=== PATIENT | female | born 1950 | race Caucasian/White ===

== ENCOUNTER 2020-10-05 | Outpatient (REF) | payer MEDICARE, SELFPAY ==
[2020-10-12 08:25] LABS: FIT1 NEGATIVE (NEGATIVE); FIT2 NEGATIVE (NEGATIVE)
[2020-10-12 08:26] LABS: FIT Int Ctl YES
== END 2020-10-05 00:01 | disposition home or self-care (01) ==
LOC: HO.LNP
PROVIDERS: Visit Provider Internal Medicine
DX: I10 Essential (primary) hypertension (principal); D73.1 Hypersplenism; D72.819 Decreased white blood cell count, unspecified; D69.6 Thrombocytopenia, unspecified; E89.40 Asymptomatic postprocedural ovarian failure
CPT/HCPCS: 82274

== ENCOUNTER 2020-10-05 12:43 | Outpatient (REF) | payer MEDICARE, SELFPAY ==
[2020-10-05 14:10] LABS: Basophils Percent Auto 0.4 % (0-2); Eosinophils Absolute Auto 0.1 X10*3/uL (0.0-0.4); Eosinophils Percent Auto 4.2 % (0-4); Hemoglobin 12.3 g/dl (12.0-16.0); MANUAL DIFF FLAG SCAN; Mean Corpuscular Volume 100.3 fL (80-98); SCAN SMEAR FLAG 1
[2020-10-05 14:12] LABS: Hematocrit 36.9 % (37-47); Lymphocytes Absolute Auto 0.8 X10*3/uL (1.2-4.9); Lymphocytes Percent Auto 31.4 % (20-40); Mean Corpuscular HGB Conc 33.3 g/dl (31.0-35.0); Mean Corpuscular Hemoglobin 33.4 pg (27.0-33.0); Mean Platelet Volume 14.4 fL (9.4-12.3); Monocytes Absolute Auto 0.2 X10*3/uL (0.1-1.2); Monocytes Percent Auto 8.4 % (2-11); Neutrophils Absolute Auto 1.3 X10*3/uL (2.0-8.3); Neutrophils Percent Auto 55.6 % (45-73); Red Blood Count 3.68 X10*6/uL (4.20-5.50); Red Cell Distribution Width 13.5 % (11.0-16.0)
[2020-10-05 14:19] LABS: PLT ABN DIST 1; Platelet Count 30 X10*3/uL (160-400); White Blood Count 2.4 X10*3/uL (4.8-10.8)
[2020-10-05 14:35] LABS: Alanine Aminotransferase 35 U/L (0-31); Albumin Level 3.6 g/dL (3.5-5.0); Alkaline Phosphatase 122 U/L (39-117); Anion Gap 11 (12-20); Aspartate Amino Transferase 44 U/L (5-31); Bilirubin Total 1.1 mg/dL (0.0-1.0); Blood Urea Nitrogen 18 mg/dL (9-16); Calcium 8.3 mg/dL (8.4-10.2); Carbon Dioxide 23 mmol/L (22-29); Chloride 111 mmol/L (96-108); Cholesterol 206 mg/dL; Estimated Glomerular Filt Rate > 60; Glucose Fasting 94 mg/dL (60-99); HDL Cholesterol 52 mg/dL; LDL Cholesterol Calculated 133 mg/dl; Potassium 4.3 mmol/l (3.3-5.1); Sodium 141 mmol/L (135-145); Total Protein 6.4 g/dL (6.5-8.0); Triglycerides 108 mg/dL
[2020-10-05 14:43] LABS: Vitamin D 25-OH Total 20.5 ng/mL (>30)
[2020-10-05 14:52] LABS: SLIDE REVIEW VERIFIED
== END 2020-10-05 12:44 | disposition home or self-care (01) ==
LOC: HO.HMGCLDS 12:43
PROVIDERS: PCP Internal Medicine; Visit Provider Internal Medicine
DX: I10 Essential (primary) hypertension (principal); D73.1 Hypersplenism; D72.819 Decreased white blood cell count, unspecified; D69.6 Thrombocytopenia, unspecified; E89.40 Asymptomatic postprocedural ovarian failure
CPT/HCPCS: 36415; 80053; 80061; 82306; 85025; 85060

== ENCOUNTER → 2020-11-04 15:25 | Outpatient (BNV) | payer MEDICARE, SELFPAY | PROVIDERS: PCP Internal Medicine; Visit Provider Internal Medicine Medical Oncology | DX: D69.6 Thrombocytopenia, unspecified (principal) | CPT/HCPCS: 99212; 99213; 99214 ==

== ENCOUNTER 2020-11-11 13:29 | Outpatient (REF) | payer MEDICARE, SELFPAY ==
--- NOTE | ~2020-11-11 | MM_ITS ---
EXAMINATION: MM SCREENING DIGITAL BREAST TOMOSYNTHESIS, BILATERAL CLINICAL INFORMATION: Screening. Asymptomatic. The lifetime risk of breast cancer based on the Tyrer-Cuzick Model is 3%. COMPARISON: Mammography: 05/29/2019, 03/31/2018, 03/28/2017 TECHNIQUE: Digital breast tomosynthesis is performed in both the craniocaudal and mediolateral oblique views along with computer-aided detection (CAD). Synthesized 2D images are generated from the tomosynthesis. Additional left MLO view is provided. FINDINGS: There are scattered areas of fibroglandular density (ACR BI-RADS breast composition Category b). There are no significant masses, abnormal calcifications, or other abnormalities. There is a biopsy clip marker again seen central 9:00 mid right breast. Left axillary node is stable. Skin contours are smooth. MM/MM tomosynthesis screening BI IMPRESSION: No mammographic evidence of malignancy. ASSESSMENT: BI-RADS 2: Benign RECOMMENDATION: Routine annual mammography screening. This patient's information was entered into a reminder system with a target due date for their next mammogram.
--- NOTE | ~2020-11-11 | MM_ITS ---
EXAMINATION: BONE DENSITOMETRY CLINICAL INDICATION: Asymptomatic menopausal state. COMPARISON: None (current study represents initial baseline exam). TECHNIQUE: Using a VTM DXA System (software version: 13.1) manufactured by [employer], dual-energy x-ray absorptiometry was performed of the lumbar spine and left hip. The images are of good technical quality. Summary results are attached. FINDINGS: AP SPINE L1-L4: BMD 0.722 g/cm2, Z-score -2.6, T-score -3.8, osteoporosis. LEFT FEMUR, NECK: BMD 0.684 g/cm2, Z-score -1.2, T-score -2.5, osteoporosis. LEFT FEMUR, TOTAL: BMD 0.810 g/cm2, Z-score -0.5, T-score -1.6, osteopenia. IDENTIFIED RISK FACTORS: History of adult fracture. Secondary osteoporosis (early menopause). Hysterectomy. Bilateral oophorectomy. HISTORY OF FRACTURE: Wrists MEDICATIONS: Calcium supplement and/or multivitamin. Vitamin D. MM/XR DEXA axial skeleton IMPRESSION: 1. DIAGNOSIS: Osteoporosis based on the lowest T-score value of -3.8 in the lumbar spine applying World Health Organization criteria. 2. 10-YEAR FRACTURE RISK PREDICTION, FRAX: Major osteoporotic fracture (clinical spine, forearm, hip or shoulder) 21.4%. Hip fracture 5.1%. 3. Treatment Recommendations: NOF guidelines recommend consideration for treatment in postmenopausal women and men age 50 and older presenting with the following: -A hip or vertebral (clinical or morphometric) fracture. -T-score less than or equal to -2.5 at the femoral neck or spine after appropriate evaluation to exclude secondary causes. -Low bone mass at the hip or spine and a 10-year fracture probability by FRAX of greater than or equal to 3% for hip fracture or greater than or equal to 20% for major osteoporotic fracture based on the [place] adapted WHO algorithm. 4. Other Recommendations: All treatment decisions require clinical judgment and consideration of individual patient factors, including patient preferences, comorbidities, previous drug use, risk factors not captured in the FRAX model (e.g. frailty, falls, vitamin D deficiency, increased bone turnover, interval significant decline in bone density) and possible under or overestimation of fracture risk by FRAX. Additional medical evaluation for secondary cause of low bone mineral density may be appropriate. FUTURE SCAN RECOMMENDATION: People with diagnosed cases of osteoporosis or at high risk for fracture should have regular bone mineral density tests. For patients eligible for Medicare, routine testing is allowed once every 2 years. The testing frequency can be increased to one year for patients who have rapidly progressing disease, those who are receiving or discontinuing medical therapy to restore bone mass, or have additional risk factors.
== END 2020-11-11 13:30 | disposition home or self-care (01) ==
LOC: HO.MAMMO 13:29
PROVIDERS: PCP Internal Medicine; Visit Provider Internal Medicine
DX: Z13.820 Encounter for screening for osteoporosis (principal); Z12.31 Encounter for screening mammogram for malignant neoplasm of breast; Z78.0 Asymptomatic menopausal state; Z90.710 Acquired absence of both cervix and uterus; Z90.722 Acquired absence of ovaries, bilateral; Z79.899 Other long term (current) drug therapy
CPT/HCPCS: 77063; 77067; 77080

== ENCOUNTER → 2021-01-25 08:29 | Outpatient (BNVA) | payer MEDICARE, SELFPAY | PROVIDERS: PCP Internal Medicine; Visit Provider Internal Medicine | DX: Z13.89 Encounter for screening for other disorder (principal) | CPT/HCPCS: Q3014 ==

== ENCOUNTER 2021-02-22 08:23 | Outpatient (REF) | payer MEDICARE, SELFPAY ==
[2021-02-22 11:51] LABS: Alanine Aminotransferase 35 U/L (0-31); Albumin Level 3.5 g/dL (3.5-5.0); Alkaline Phosphatase 119 U/L (39-117); Anion Gap 13 (12-20); Aspartate Amino Transferase 49 U/L (5-31); Bilirubin Total 1.6 mg/dL (0.0-1.0); Blood Urea Nitrogen 18 mg/dL (9-16); Calcium 8.8 mg/dL (8.4-10.2); Carbon Dioxide 21 mmol/L (22-29); Chloride 110 mmol/L (96-108); Estimated Glomerular Filt Rate > 60; Glucose Random 102 mg/dL (60-115); Phosphorus 3.3 mg/dL (2.7-4.5); Sodium 140 mmol/L (135-145); Total Protein 6.4 g/dL (6.5-8.0)
[2021-02-22 12:15] LABS: Free T4 (Free Thyroxine) 0.95 ng/dL (0.71-1.85); Thyroid Stimulating Hormone 1.63 uIU/mL (0.32-4.0); Vitamin D 25-OH Total 53.6 ng/mL (>30)
[2021-02-23 14:31] LABS: Calcium, Ionized 5.1 mg/dL (4.8-5.6)
[2021-02-24 10:22] LABS: PTHI 33 pg/mL (14-64)
[2021-02-24 21:46] LABS: Prot Elec - Albumin 3.5 g/dL (3.8-4.8); Prot Elec - Alpha1 0.2 g/dL (0.2-0.3); Prot Elec - Alpha2 0.5 g/dL (0.5-0.9); Prot Elec - Beta 1 0.4 g/dL (0.4-0.6); Prot Elec - Beta 2 0.3 g/dL (0.2-0.5); Prot Elec - Gamma 1.2 g/dL (0.8-1.7); Prot Elec - Total Protein 6.1 g/dL (6.1-8.1)
[2021-02-26 13:52] LABS: Alkaline Phosphatase Bone 20.4 mcg/L (5.6-29.0)
[2021-03-01 19:41] LABS: N-Telopeptide 31 (see note); NTXCreaRU 66 mg/dL (20-275)
== END 2021-02-22 08:24 | disposition home or self-care (01) ==
LOC: HO.HMGCLDS 08:23
PROVIDERS: PCP Internal Medicine; Visit Provider Internal Medicine
DX: M81.0 Age-related osteoporosis without current pathological fracture (principal); E55.9 Vitamin D deficiency, unspecified
CPT/HCPCS: 36415; 80053; 82306; 82330; 82523; 83970; 84075; 84100; 84155; 84165; 84439; 84443

== ENCOUNTER 2021-02-28 | Outpatient (REF) | payer MEDICARE, SELFPAY ==
[2021-02-28 12:13] LABS: Total Volume 24 Hour Urine 1750 mL
[2021-02-28 12:34] LABS: Creatinine, 24Hr Urine 0.9 G/Day (1.0-2.0); Creatinine, mg/dL 53.22
[2021-03-02 18:17] LABS: Calcium, 24 Hr Urine 119 mg/24 h; Calcium/Creatinine Ratio 121 mg/g creat (30-275); Creatinine 24Hr Urine 0.98 g/24 h (0.50-2.15)
== END 2021-02-28 00:01 | disposition home or self-care (01) ==
LOC: HO.HMGCLNP
PROVIDERS: Visit Provider Internal Medicine
DX: M81.0 Age-related osteoporosis without current pathological fracture (principal)
CPT/HCPCS: 82340; 82570

== ENCOUNTER → 2021-04-13 08:24 | Outpatient (BNVA) | payer MEDICARE, SELFPAY | PROVIDERS: PCP Internal Medicine; Visit Provider Internal Medicine | DX: M81.0 Age-related osteoporosis without current pathological fracture (principal); E55.9 Vitamin D deficiency, unspecified | CPT/HCPCS: Q3014 ==

== ENCOUNTER 2021-04-24 13:48 | Outpatient (REF) | payer MEDICARE, SELFPAY ==
[2021-04-24 15:26] LABS: Basophils Percent Auto 0.4 % (0-2); MANUAL DIFF FLAG SCAN; PLT CLUMP 1; SCAN SMEAR FLAG 1
[2021-04-24 15:28] LABS: Eosinophils Absolute Auto 0.1 X10*3/uL (0.0-0.4); Eosinophils Percent Auto 5.1 % (0-4); Hematocrit 36.5 % (37-47); Hemoglobin 12.4 g/dl (12.0-16.0); Lymphocytes Absolute Auto 0.7 X10*3/uL (1.2-4.9); Lymphocytes Percent Auto 28.8 % (20-40); Mean Corpuscular Hemoglobin 33.3 pg (27.0-33.0); Mean Corpuscular Volume 98.1 fL (80-98); Monocytes Absolute Auto 0.3 X10*3/uL (0.1-1.2); Monocytes Percent Auto 10.6 % (2-11); Neutrophils Absolute Auto 1.3 X10*3/uL (2.0-8.3); Neutrophils Percent Auto 55.1 % (45-73); Red Blood Count 3.72 X10*6/uL (4.20-5.50); Red Cell Distribution Width 14.2 % (11.0-16.0)
[2021-04-24 15:33] LABS: INTERNATIONAL NORM RATIO 1.2 (0.9-1.1); Platelet Count 25 X10*3/uL (160-400); Prothrombin Time 14.1 SEC (9.9-13.0); White Blood Count 2.4 X10*3/uL (4.8-10.8)
[2021-04-24 15:34] LABS: PLT ABN DIST 1
[2021-04-24 15:49] LABS: Alanine Aminotransferase 45 U/L (0-31); Albumin Level 3.7 g/dL (3.5-5.0); Alkaline Phosphatase 107 U/L (39-117); Anion Gap 13 (12-20); Aspartate Amino Transferase 61 U/L (5-31); Blood Urea Nitrogen 24 mg/dL (9-16); Calcium 9.8 mg/dL (8.4-10.2); Carbon Dioxide 23 mmol/L (22-29); Chloride 110 mmol/L (96-108); Estimated Glomerular Filt Rate > 60; Glucose Random 100 mg/dL (60-115); Iron 166 mcg/dL (30-160); Percent Iron Saturation 61 % (15-50); Potassium 4.2 mmol/L (3.3-5.1); Sodium 142 mmol/L (135-145); Total Iron Binding Capacity 272 mcg/dL (228-428); Total Protein 6.9 g/dL (6.5-8.0); Unsaturated Iron Binding 106 ug/dL
[2021-04-24 15:54] LABS: SLIDE REVIEW VERIFIED
[2021-04-24 16:10] LABS: Ferritin 404 ng/mL (10-250); Vitamin D 25-OH Total 36.8 ng/mL (>30)
[2021-04-24 16:22] LABS: Folate 19.3 ng/mL (> or = 4.0); Vitamin B12 1274 pg/mL (200-900)
[2021-04-24 16:28] LABS: Erythrocyte Sedimentation Rate 14 MM/HR (0-20)
[2021-04-25 05:01] LABS: HBc Num1 0.16 S/CO (0.00-0.79); HBsAGNum1 0.18 S/CO (0.00-0.99); Hepatitis B Core Antibody Nonreactive (Nonreactive); Hepatitis B Surface Antigen Negative (Negative); ~HepC Num1 0.21 S/CO (0.00-0.79); ~Hepatitis C Antibody Nonreactive (Nonreactive)
[2021-04-25 05:03] LABS: HBS Num1 0.08 mIU/mL (0-7.99); HIV AB/AG Nonreactive (Nonreactive); HIV Num 1 0.12 S/CO (0.00-0.99); ~Hepatitis B Surface Antibody NONREACTIVE (Nonreactive)
[2021-04-25 13:35] LABS: IgA 347 mg/dL (70-320); IgG 1355 mg/dL (600-1540); IgM 138 mg/dL (50-300)
[2021-04-25 17:31] LABS: Immunoglobulin G Subclass 1 689 mg/dL (382-929); Immunoglobulin G Subclass 2 383 mg/dL (241-700); Immunoglobulin G Subclass 3 73 mg/dL (22-178); Immunoglobulin G Total 1263 mg/dL (600-1540)
[2021-04-26 11:52] LABS: Alpha 1 Anti-trypsin 179 mg/dL (83-199); Ceruloplasmin 29 mg/dL (18-53)
[2021-04-26 12:18] LABS: Hepatitis A Antibody IgM 0.24 Index (0-0.79); ~Hepatitis A Antibody IgM Nonreactive (Nonreactive)
[2021-04-26 13:11] LABS: Mitochondrial Antibodies NEGATIVE (NEGATIVE)
[2021-04-27 12:41] LABS: Anti Nuclear Antibody Screen POSITIVE (NEGATIVE)
[2021-04-27 12:46] LABS: ANA Pattern 2 Nuclear, Nucleolar; Anti Nuclear Antibody Pattern Nuclear, Speckled; Anti Nuclear Antibody Titer 1:40 titer
[2021-04-27 15:20] LABS: Vitamin C 1.2 mg/dL (0.3-2.7)
[2021-04-27 17:21] LABS: Zinc 57 mcg/dL (60-130)
[2021-04-27 21:46] LABS: Transglutaminase Ab IgG 4 U/mL; Transglutaminase IgA 1 U/mL
[2021-04-28 00:32] LABS: Vitamin A 21 mcg/dL (38-98)
[2021-04-28 00:57] LABS: Alpha-Tocopherol 11.7 mg/L (5.7-19.9); Beta-Gamma Tocopherol 2.1 mg/L (<=4.3)
[2021-04-28 02:30] LABS: Aldolase 5.8 U/L (<=8.1)
[2021-04-28 11:41] LABS: Vitamin B6 30.8 ng/mL (2.1-21.7)
[2021-04-28 23:51] LABS: Smooth Muscle Antibody <20 U (<20)
[2021-04-29 16:06] LABS: Nicotinamide <20 ng/mL; Vit B3 - Nicotinic Acid <20 ng/mL
[2021-04-30 11:47] LABS: Soluble Liver Ag Autoantibody <20.1 U (0.0-20.0)
[2021-04-30 18:26] LABS: Vitamin B5 (Pantothenic Acid) 96 ng/mL (<275)
[2021-05-01 18:21] LABS: Vitamin K1 962 pg/mL (130-1500)
== END 2021-04-24 13:49 | disposition home or self-care (01) ==
LOC: HO.LAB 13:48
PROVIDERS: PCP Internal Medicine; Referring Provider Internal Medicine; Visit Provider Internal Medicine Gastroenterology
DX: D69.6 Thrombocytopenia, unspecified (principal); R94.5 Abnormal results of liver function studies; R79.82 Elevated C-reactive protein (CRP); K75.81 Nonalcoholic steatohepatitis (NASH); G89.29 Other chronic pain; R10.33 Periumbilical pain; K52.839 Microscopic colitis, unspecified
CPT/HCPCS: 36415; 80053; 82085; 82103; 82180; 82306; 82390; 82550; 82607; 82728; 82746; 82784; 83516; 83520; 83540; 84207; 84446; 84590; 84591; 84597; 84630; 85025; 85610; 85652; 86038; 86039; 86255; 86256; 86704; 86706; 86709; 86803; 87340; 87389; 99202

== ENCOUNTER 2021-05-12 11:26 | Outpatient (REF) | payer MEDICARE, SELFPAY ==
--- NOTE | ~2021-05-12 | US_ITS ---
EXAMINATION: US ABDOMEN COMPLETE CLINICAL INFORMATION: Abnormal results of liver function studies. COMPARISON: Ultrasound abdomen complete 01/14/2014 TECHNIQUE: Real-time imaging of the abdominal viscera. FINDINGS: PANCREAS: Normal. ABDOMINAL AORTA: Mild atherosclerotic calcification. Periaortic lymph node measuring 1.4 x 1.1 x 2.6 cm. INFERIOR VENA CAVA: Visualized portions are normal. LIVER: The liver is normal in size. The liver contour is normal. Slightly increased hepatic parenchymal echogenicity, which can be seen in setting of steatosis. Probable left hepatic hemangioma measuring 1.0 x 1.0 x 1.5 cm. There is no intrahepatic biliary duct dilatation seen. GALLBLADDER: Cholelithiasis measuring up to 1.7 cm. Mild gallbladder wall thickening and edema. Trace pericholecystic free fluid. COMMON BILE DUCT: Normal in caliber measuring 0.6 cm in diameter. RIGHT KIDNEY: Lower pole cyst with calcifications measuring 1.7 cm. Upper pole cyst measuring 1.0 cm which appear simple. No hydronephrosis or renal calculi. The kidney measures 10.7 cm in maximum dimension. LEFT KIDNEY: Simple upper pole cyst measuring 1.1 cm. Small extrarenal pelvis. No hydronephrosis or renal calculi. The kidney measures 11.1 cm in maximum dimension. SPLEEN: Enlarged. The spleen measures 18.1 cm in maximum dimension. FREE FLUID: None. US/US abdomen complete IMPRESSION: 1. Cholelithiasis with gallbladder wall thickening and edema as well as trace pericholecystic free fluid. Findings are concerning for acute cholecystitis. 2. Mildly prominent periaortic lymph node measuring up to 1.4 x 1.1 x 2.6 cm. 3. Slightly increased hepatic parenchymal echogenicity, which can be seen in the setting of steatosis. Underlying hepatocellular disease cannot be excluded. Possible left hepatic hemangioma measuring up to 1.5 cm. No intrahepatic biliary ductal dilatation. 4. Splenomegaly measuring up to 18.1 cm. 5. Lower pole right renal cyst measuring 1.7 cm with calcifications. Additional bilateral simple renal cysts.
== END 2021-05-12 11:27 | disposition home or self-care (01) ==
LOC: HO.HMGCX 11:26
PROVIDERS: PCP Internal Medicine; Visit Provider Internal Medicine Gastroenterology
DX: D69.6 Thrombocytopenia, unspecified (principal); R94.5 Abnormal results of liver function studies
CPT/HCPCS: 76700

== ENCOUNTER 2021-06-30 10:57 | Day surgery (SDC) | payer MEDICARE, SELFPAY ==
[2021-06-30] VITALS (7 sets, daily range): BP systolic 111–169; BP diastolic 46–78; PULSE 71–77; RESP 16–20; TEMP 36.4–36.9; O2SAT 96–97; BMI 35.9
--- NOTE | ~2021-06-30 | CT_ITS ---
PROCEDURE: CT GUIDED BIOPSY CLINICAL INFORMATION: Pancytopenia. COMPARISON: None TECHNIQUE: Following explaining CT fluoroscopy-guided left iliac crest bone marrow biopsy and aspiration, a written consent was obtained. Patient was placed prone on CT table and preliminary imaging was obtained through the pelvis. Lead markers were placed along midline. An optimal marker was selected and marked on the skin. The site was cleaned and draped in the usual sterile manner. 1% lidocaine was injected at the puncture site. A 22-gauge spinal needle was then advanced from the skin to the posterior iliac crest spine margin and 0.25% Sensorcaine administered. Through a small skin incision, a 14-gauge guide needle was advanced from the skin to the posterior iliac spine. A drill was attached to the needle and the needle was drilled into the posterior iliac bone marrow. Syringe filled with EDTA was attached to the needle and aspiration was performed. A similar syringe with heparin was attached to the needle and aspiration was performed. Subsequently, a coaxial 10-Czech needle was advanced and drilled into the bone marrow with a battery operated drill, and a core biopsy was performed. After achieving an adequate amount of tissue, the guide needle and the core needle were removed and complete hemostasis was achieved at the puncture site. Patient tolerated the procedure well without immediate complications. Intermittent CT fluoroscopy was performed for directing the needle into the bone marrow. Simple dressing applied postprocedure. There is no bleeding seen. This CT examination was performed using dose optimization techniques as appropriate, variously including the following: *Automated exposure control *Adjustment of mA and/or kV according to patient size (this includes techniques or standardized protocols for targeted exams where dose is matched to indication/reason for exam; i.e. extremities or head) *Use of iterative reconstruction technique Conscious sedation was given during the exam, 25 mcg of fentanyl and 1 mg of Versed. Patient was monitored for 30 minutes. DLP: 317 mGy-cm FINDINGS: On the preliminary CT imaging, there is no bony abnormality. There is scattered stool seen in the colon. No free fluid or free air. CT fluoroscopy-guided bone marrow aspiration x 2 and bone marrow biopsy was performed. Patient tolerated procedure well. CT/CT biopsy bone marrow IMPRESSION: Successful CT fluoroscopy-guided bone marrow aspiration x 2 and solitary core bone marrow biopsy was performed without immediate complications.
[2021-06-30 11:16] LABS: MANUAL DIFF FLAG NO
[2021-06-30 11:25] LABS: INTERNATIONAL NORM RATIO 1.3 (0.9-1.1); Prothrombin Time 14.4 SEC (9.9-13.0)
[2021-06-30 11:28] LABS: Basophils Percent Auto 0.3 % (0-2); Eosinophils Absolute Auto 0.1 X10*3/uL (0.0-0.4); Eosinophils Percent Auto 2.6 % (0-4); Hematocrit 39.5 % (37-47); Hemoglobin 13.2 g/dl (12.0-16.0); Lymphocytes Absolute Auto 0.6 X10*3/uL (1.2-4.9); Lymphocytes Percent Auto 21.1 % (20-40); Mean Corpuscular HGB Conc 33.4 g/dl (31.0-35.0); Mean Corpuscular Hemoglobin 32.8 pg (27.0-33.0); Mean Platelet Volume 13.9 fL (9.4-12.3); Monocytes Absolute Auto 0.2 X10*3/uL (0.1-1.2); Monocytes Percent Auto 7.6 % (2-11); Neutrophils Absolute Auto 2.1 X10*3/uL (2.0-8.3); Neutrophils Percent Auto 68.4 % (45-73); Partial Thromboplastin Time 43.2 SEC (24.1-38.0); Platelet Count 27 X10*3/uL (160-400); Red Blood Count 4.03 X10*6/uL (4.20-5.50); Red Cell Distribution Width 14.1 % (11.0-16.0)
[2021-06-30 13:41] LABS: Bone Marrow SEE SEPARATE REPORT
== END 2021-06-30 15:29 | disposition home or self-care (01) ==
PROVIDERS: Internal Medicine Medical Oncology; PCP Internal Medicine; Visit Provider Radiology Diagnostic Radiology
PROC: (CPT 38221; principal; 2021-06-30 12:30)
DX: D61.818 Other pancytopenia (principal); D72.819 Decreased white blood cell count, unspecified; D69.6 Thrombocytopenia, unspecified; D73.1 Hypersplenism; I10 Essential (primary) hypertension; Z87.891 Personal history of nicotine dependence; Z91.040 Latex allergy status; M81.0 Age-related osteoporosis without current pathological fracture
CPT/HCPCS: 36415; 38221; 38222; 85025; 85097; 85610; 85730; 88184; 88185; 88237; 88264; 88280; 88305; 88311; 88313; 99152; J1642; J2250; J3010

== ENCOUNTER 2021-07-12 07:55 | Outpatient (REF) | payer MEDICARE, SELFPAY ==
[2021-07-12 08:38] LABS: MANUAL DIFF FLAG SCAN; Monocytes Absolute Auto 0.2 X10*3/uL (0.1-1.2); SCAN SMEAR FLAG 1
[2021-07-12 08:39] LABS: Basophils Percent Auto 1.1 % (0-2); Eosinophils Absolute Auto 0.1 X10*3/uL (0.0-0.4); Hematocrit 34.8 % (37-47); Hemoglobin 11.6 g/dl (12.0-16.0); Lymphocytes Absolute Auto 0.5 X10*3/uL (1.2-4.9); Lymphocytes Percent Auto 27.4 % (20-40); Mean Corpuscular HGB Conc 33.3 g/dl (31.0-35.0); Mean Corpuscular Hemoglobin 32.5 pg (27.0-33.0); Mean Corpuscular Volume 97.5 fL (80-98); Mean Platelet Volume 13.3 fL (9.4-12.3); Monocytes Percent Auto 8.9 % (2-11); Neutrophils Percent Auto 57.6 % (45-73); Red Blood Count 3.57 X10*6/uL (4.20-5.50); Red Cell Distribution Width 13.7 % (11.0-16.0)
[2021-07-12 08:46] LABS: White Blood Count 1.8 X10*3/uL (4.8-10.8)
[2021-07-12 08:47] LABS: PLT ABN DIST 1; Platelet Count 26 X10*3/uL (160-400)
[2021-07-12 09:01] LABS: Alanine Aminotransferase 31 U/L (0-31); Albumin Level 3.5 g/dL (3.5-5.0); Alkaline Phosphatase 119 U/L (39-117); Anion Gap 8 (12-20); Aspartate Amino Transferase 45 U/L (5-31); Bilirubin Total 1.2 mg/dL (0.0-1.0); Blood Urea Nitrogen 16 mg/dL (9-16); Calcium 9.4 mg/dL (8.4-10.2); Carbon Dioxide 26 mmol/L (22-29); Chloride 110 mmol/L (96-108); Cholesterol 185 mg/dL; Estimated Glomerular Filt Rate > 60; Glucose Fasting 108 mg/dL (60-99); HDL Cholesterol 41 mg/dL; LDL Cholesterol Calculated 124 mg/dl; Phosphorus 3.7 mg/dL (2.7-4.5); Sodium 140 mmol/L (135-145); Total Protein 6.3 g/dL (6.5-8.0); Triglycerides 102 mg/dL
[2021-07-12 09:09] LABS: Alanine Aminotransferase 32 U/L (0-31); Albumin Level 3.5 g/dL (3.5-5.0); Alkaline Phosphatase 118 U/L (39-117); Anion Gap 10 (12-20); Aspartate Amino Transferase 45 U/L (5-31); Bilirubin Total 1.2 mg/dL (0.0-1.0); Blood Urea Nitrogen 16 mg/dL (9-16); Calcium 9.3 mg/dL (8.4-10.2); Carbon Dioxide 25 mmol/L (22-29); Chloride 110 mmol/L (96-108); Estimated Glomerular Filt Rate > 60; Glucose Random 108 mg/dL (60-115); Sodium 141 mmol/L (135-145); Total Protein 6.2 g/dL (6.5-8.0)
[2021-07-12 09:20] LABS: Vitamin D 25-OH Total 36.4 ng/mL (>30)
[2021-07-12 09:32] LABS: SLIDE REVIEW VERIFIED; Vitamin D 25-OH Total 35.2 ng/mL (>30)
[2021-07-13 16:42] LABS: Calcium (PTHI) 9.5 mg/dL (8.6-10.4); PTHI 20 pg/mL (14-64)
[2021-07-17 10:12] LABS: Zinc 67 mcg/dL (60-130)
[2021-07-17 18:57] LABS: Vitamin A 18 mcg/dL (38-98)
== END 2021-07-12 07:56 | disposition home or self-care (01) ==
LOC: HO.LAB 07:55
PROVIDERS: Internal Medicine; Absent Provider Internal Medicine Gastroenterology; PCP Internal Medicine; Visit Provider Internal Medicine Medical Oncology
DX: E78.5 Hyperlipidemia, unspecified (principal); I10 Essential (primary) hypertension; M81.0 Age-related osteoporosis without current pathological fracture; E55.9 Vitamin D deficiency, unspecified; R94.5 Abnormal results of liver function studies; D61.818 Other pancytopenia; D72.819 Decreased white blood cell count, unspecified
CPT/HCPCS: 36415; 80048; 80053; 80061; 81256; 82306; 83970; 84100; 84590; 84630; 85025

== ENCOUNTER 2021-07-19 | Outpatient (REF) | payer MEDICARE, SELFPAY ==
[2021-07-26 10:26] LABS: N-Telopeptide 46 (see note); NTXCreaRU 103 mg/dL (20-275)
== END 2021-07-19 00:01 | disposition home or self-care (01) ==
LOC: HO.HMGCLNP
PROVIDERS: Visit Provider Internal Medicine
DX: M81.0 Age-related osteoporosis without current pathological fracture (principal)
CPT/HCPCS: 82523

== ENCOUNTER 2021-08-29 20:42 | Emergency (ER) | payer MEDICARE, SELFPAY ==
--- NOTE | ~2021-08-29 | XR_ITS ---
Indication: Pain, fall EXAMINATION: Right forearm, right wrist 3 views of the right wrist does not demonstrate acute fracture or dislocation. 2 views the right forearm does not demonstrate fracture. Hardware in the distal radius. XR/XR wrist RT 2V IMPRESSION: No fracture or dislocation right wrist. No fracture right forearm.
--- NOTE | ~2021-08-29 | XR_ITS ---
Indication: Pain, fall EXAMINATION: Right forearm, right wrist 3 views of the right wrist does not demonstrate acute fracture or dislocation. 2 views the right forearm does not demonstrate fracture. Hardware in the distal radius. XR/XR forearm RT 2V IMPRESSION: No fracture or dislocation right wrist. No fracture right forearm.
[2021-08-29 21:18] VITALS: BP 165/75; PULSE 76; RESP 16; TEMP 36.3; O2SAT 98; BMI 35.5
--- NOTE | 2021-08-30 00:31 | ED.EXTPRO ---
HPI - Extremity Problem General Chief complaint: Extremity Injury, Upper Stated complaint: fall - right arm pain Time Seen by Provider: 08/29/21 23:58 Source: patient Mode of arrival: ambulatory Limitations: no limitations History of Present Illness HPI Narrative: Patient presents to ED for right forearm pain. Patient states she was walking tripped while trying to break before she our stretcher hand. Patient denies body fallen to the ground. Patient states she used her right hand to break her fall. Patient states since then having right forearm pain. Patient denies head hitting the ground or being on any blood thinners. Denies any nausea, vomiting, chest pain, coughing up blood, rectal bleeding, or blood in urine. Related Data Home Medications Medication Instructions Recorded Confirmed multivitamin 1 tab PO DAILY 11/22/20 06/06/21 calcium citrate 500 mg (2,376 mg) 1,000 mg PO DAILY 04/13/21 06/06/21 effervescent tablet vitamin B complex (B 1 tab PO DAILY 04/24/21 06/06/21 Complex-Vitamin B12) Previous Rx's Medication Instructions Recorded lisinopril 40 mg tablet 40 mg PO DAILY #90 tab 03/27/21 labetalol 200 mg tablet 200 mg PO BID #180 tab 04/09/21 zinc 50 mg tablet 50 mg PO DAILY #30 tab 05/24/21 vitamin A 2,400 mcg capsule 2,400 mcg PO DAILY #30 cap 06/20/21 Allergies Allergy/AdvReac Type Severity Reaction Status Date / Time latex AdvReac rash Verified 04/24/21 13:55 Review of Systems Review of Systems: Yes all other systems are reviewed and are negative Constitutional: Constitutional: Reports as per HPI and Reports no additional constitutional complaints Eyes: Eyes: Reports as per HPI and Reports no additional eye complaints ENT: Reports system reviewed and no additional complaints, except as documented and Reports as per HPI Cardiovascular: Cardiovascular: Reports as per HPI and Reports no additional cardiovascular complaints Respiratory: Respiratory: Reports as per HPI and Reports no additional respiratory complaints Gastrointestinal: Gastrointestinal: Reports as per HPI and Reports no additional gastrointestinal complaints Genitourinary: Genitourinary: Reports no additional female genitourinary complaints and Reports as per HPI Musculoskeletal: Musculoskeletal: Reports no additional musculoskeletal complaints, Reports as per HPI and Reports arthralgias (Right forearm pain) Integumentary/Breasts: Skin/Breast: Reports system reviewed and no additional complaints, except as docu and Reports as per HPI Neurologic: Reports system reviewed and no additional complaints, except as documented and Reports as per HPI Psychiatric: Psychiatric: Reports no additional psychiatric complaints and Reports as per HPI [facility] Past Medical History Medical History Abnormal liver function Breast cancer screening by mammogram Dyslipidemia (high LDL; low HDL) Essential hypertension Gallstones Hypersplenism Leukopenia Osteoporosis Osteoporosis of multiple sites Surgical menopause Thrombocytopenia Vitamin D deficiency Surgical History H/O wrist surgery History of hysterectomy Family History Family History Father Parkinsons Mother HTN (hypertension) Pacemaker H/O bladder problems Heart problem Maternal Grandmother No problems noted. Maternal Grandfather Diabetes mellitus Paternal Grandfather History of heart attack CVD (cardiovascular disease) Paternal Grandmother Unknown family medical history Maternal Aunt Smoker Lung cancer Maternal Uncle Diabetes mellitus Sister No problems noted. Social History Social History Alcohol intake: former Patient Tobacco Use Status: Former Tobacco user Cigarettes Per Day: 1 Years Smoked: 10 Advance Directives: No Advance Directives Information Provided: Yes Physical Exam Vital Signs: Vital Signs: Last Vital Signs Temp 97.4 F 08/29/21 21:18 Pulse 76 08/29/21 21:18 Resp 16 08/29/21 21:18 BP 165/75 H 08/29/21 21:18 Pulse Ox 98 08/29/21 21:18 Body Mass Index 35.5 Const: General: cooperative, healthy appearing, comfortable, no acute distress, well developed, alert, awake and Physically active Orientation/consciousness: patient oriented x3 HENMT: Head: Yes normal to inspection, Yes No palpable skull fracture present, Yes normocephalic, Yes atraumatic, No abrasion, No Acrocyanosis present, No Arriola's sign, No contusion, No cranial bruits, No hematoma, No laceration, No occipital foramen tenderness, No palpable skull fracture, No raccoon eyes, No scalp lesion, No scalp tenderness, No Temporal artery tenderness present and No periorbital ecchymosis Eyes: General: appearance normal, both eyes and all related structures Neck: Neck: Yes normal visual inspection, Yes full ROM, Yes no lymphadenopathy, Yes no meningeal signs, Yes trachea midline, Yes supple, No anterior neck swelling and No tender Chest: Chest palpation & inspection: normal inspection of the chest and normal palpation of entire chest wall Resp: Effort & Inspection: normal respiratory effort and able to speak in complete sentences Auscultation: clear to auscultation bilaterally Cardio: Jugular venous distension: no JVD Heart sounds: S1 normal heart sound present and S2 normal heart sound present GI: Inspection: Yes normal to inspection and No abdominal wall ecchymosis Palpation (GI): Soft to palpation, not firm, nontender, no guarding and not rigid : General: No CVA tenderness and Yes no CVA tenderness Back/Spine/Pelvis: Back: no CVA tenderness, No CVA tenderness and No back tenderness Skin: General skin exam: no rashes or lesions noted and elasticity normal Neuro: General: patient oriented x3, gait normal, moves all extremities and no meningeal signs Cranial nerves: Yes CN's II-XII intact bilaterally Extrem: General: Yes normal to inspection and Yes full ROM Elbow/forearm/wrist images: 1. Positive for tenderness on palpation. Negative for any ecchymosis, erythema, swelling, crepitus, deformity, hotness, coolness, pus discharge, or foul older. Motor/neuro/vascular exam intact Psych: Appearance: grossly normal, well kempt and not disheveled Course Course Course Narrative: Patient sent for x-ray. Reevaluation(s) Reevaluation #1: X-ray negative for fractures. Patient from take Tylenol for pain relief. Patient educated on rest, elevation, and ice. Patient states can not take NSAIDs. Time: 20:40 MDM - Extremity (Nontraumatic) MDM Narrative Medical decision making narrative: Contusions sprain Discharge Plan Discharge Clinical Impression: Fall, Forearm sprain Patient Disposition: Home, Self-Care Instructions: Sprain (ED), Fall Prevention for Older Adults (ED) Additional Instructions: Return to the ED immediately for any swelling, ecchymosis, redness, bluish black discoloration, red streaks, pus discharge, foul odor, fever, chills, paralysis of extremities, numbness/tingling, or any other concerning symptoms. Please follow-up with primary care provider. Recommend rest, elevation, and ice. tylenol can be used for pain relief. Prescriptions: No Action lisinopril 40 mg tablet 40 mg PO DAILY Qty: 90 RF: 1 labetalol 200 mg tablet 200 mg PO BID Qty: 180 RF: 1 zinc 50 mg tablet 50 mg PO DAILY Qty: 30 RF: 0 vitamin A 2,400 mcg capsule 2,400 mcg PO DAILY Qty: 30 RF: 2 multivitamin Tablet 1 tab PO DAILY RF: 0 vitamin B complex [B Complex-Vitamin B12] Tablet 1 tab PO DAILY RF: 0 calcium citrate 500 mg tablet, effervescent 1,000 mg PO DAILY RF: 0 Interventions: ED Discharge Assessment Last Done: 08/30/21 01:01 Discharge Date/Time: 08/30/21 01:03 Print Language: Italian
== END 2021-08-30 01:03 | disposition home or self-care (01) ==
PROVIDERS: Emergency Provider Student in an Organized Health Care Education/Training Program; PCP Internal Medicine
DX: S56.911A Strain of unspecified muscles, fascia and tendons at forearm level, right arm, initial encounter (principal); W01.0XXA Fall on same level from slipping, tripping and stumbling without subsequent striking against object, initial encounter; Y93.9 Activity, unspecified; Y92.9 Unspecified place or not applicable; Y99.9 Unspecified external cause status
CPT/HCPCS: 73090; 73100; 99283

== ENCOUNTER → 2021-11-06 08:33 | Outpatient (BNVA) | payer MEDICARE, SELFPAY | PROVIDERS: PCP Internal Medicine; Visit Provider Internal Medicine | DX: M81.0 Age-related osteoporosis without current pathological fracture (principal); E55.9 Vitamin D deficiency, unspecified | CPT/HCPCS: 99212 ==

== ENCOUNTER 2021-11-17 07:18 | Outpatient (REF) | payer MEDICARE, SELFPAY ==
--- NOTE | ~2021-11-17 | MM_ITS ---
EXAMINATION: MM SCREENING DIGITAL BREAST TOMOSYNTHESIS, BILATERAL CLINICAL INFORMATION: Screening. Asymptomatic. The lifetime risk of breast cancer based on the Tyrer-Cuzick Model is 3%. COMPARISON: Mammography: 11/11/2020, 05/29/2019, 03/31/2018 TECHNIQUE: Digital breast tomosynthesis is performed in both the craniocaudal and mediolateral oblique views along with computer-aided detection (CAD). Synthesized 2D images are generated from the tomosynthesis. Additional right cleavage and exaggerated left CC views are provided. FINDINGS: There are scattered areas of fibroglandular density (ACR BI-RADS breast composition Category b). There are no significant masses, abnormal calcifications, or other abnormalities. Parenchymal pattern is similar to prior studies. There is no developing density or architectural abnormality. There is biopsy clip marker central right breast mid depth. The axilla and skin contours are unremarkable. No significant changes. MM/MM tomosynthesis screening BI IMPRESSION: No mammographic evidence of malignancy. ASSESSMENT: BI-RADS 1: Negative RECOMMENDATION: Routine annual mammography screening. This patient's information was entered into a reminder system with a target due date for their next mammogram.
== END 2021-11-17 07:19 | disposition home or self-care (01) ==
LOC: HO.MAMMO 07:18
PROVIDERS: PCP Internal Medicine; Visit Provider Internal Medicine
DX: Z12.31 Encounter for screening mammogram for malignant neoplasm of breast (principal)
CPT/HCPCS: 77063; 77067

== ENCOUNTER 2022-01-17 09:05 | Outpatient (REF) | payer MEDICARE, SELFPAY ==
[2022-01-17 10:07] LABS: Alanine Aminotransferase 38 U/L (0-31); Albumin Level 3.6 g/dL (3.5-5.0); Alkaline Phosphatase 117 U/L (39-117); Anion Gap 11 (12-20); Aspartate Amino Transferase 59 U/L (5-31); Bilirubin Total 1.7 mg/dL (0.0-1.0); Blood Urea Nitrogen 16 mg/dL (9-16); Calcium 9.3 mg/dL (8.4-10.2); Carbon Dioxide 24 mmol/L (22-29); Chloride 110 mmol/L (96-108); Estimated Glomerular Filt Rate > 60; Glucose Random 112 mg/dL (60-115); Potassium 4.2 mmol/L (3.3-5.1); Sodium 141 mmol/L (135-145); Total Protein 6.6 g/dL (6.5-8.0)
[2022-01-17 10:30] LABS: Vitamin D 25-OH Total 35.7 ng/mL (>30)
[2022-01-19 12:26] LABS: PTHI 39 pg/mL (16-77)
== END 2022-01-17 09:06 | disposition home or self-care (01) ==
LOC: HO.LAB 09:05
PROVIDERS: Absent Provider Internal Medicine; PCP Internal Medicine; Visit Provider Internal Medicine Medical Oncology
DX: M81.0 Age-related osteoporosis without current pathological fracture (principal); E55.9 Vitamin D deficiency, unspecified
CPT/HCPCS: 36415; 80053; 82306; 83970; 84100

== ENCOUNTER → 2022-02-05 07:49 | Outpatient (BNVA) | payer MEDICARE, SELFPAY | PROVIDERS: PCP Internal Medicine; Visit Provider Internal Medicine | DX: M81.0 Age-related osteoporosis without current pathological fracture (principal); E55.9 Vitamin D deficiency, unspecified | CPT/HCPCS: Q3014 ==

== ENCOUNTER 2022-09-10 16:00 | Emergency (ER) | payer MEDICARE, SELFPAY ==
--- NOTE | ~2022-09-10 | CT_ITS ---
EXAMINATION: CT HEAD WITHOUT CONTRAST CT CERVICAL SPINE WITHOUT CONTRAST CLINICAL INFORMATION: Trauma. COMPARISON: None. TECHNIQUE: Imaging was performed from the skull base to vertex without intravenous administration of contrast. In addition, helical noncontrast CT imaging was acquired through the cervical spine and source images were reviewed along with axial reconstructions and sagittal and coronal MPRs. [This CT examination was performed using dose optimization techniques as appropriate, variously including the following: *Automated exposure control *Adjustment of mA and/or kV according to patient size (this includes techniques or standardized protocols for targeted exams where dose is matched to indication/reason for exam; i.e. extremities or head) *Use of iterative reconstruction technique] DLP: 1039 mGy-cm FINDINGS: HEAD: No intracranial mass, hemorrhage, or midline shift is visualized. The ventricles and sulci are proportional. No extra-axial collections are identified. The paranasal sinuses and mastoid air cells are well aerated. CERVICAL SPINE: There is no evidence of acute cervical spine fracture. Vertebral bodies remain normal in height. Cervical vertebrae have normal alignment. There is multilevel degenerative spondylosis of the cervical spine with disc height narrowing and endplate spurs and facet joint arthrosis No pre- or paravertebral soft tissue abnormality is identified. Limited assessment of the lung apices is unremarkable. CT/CT head/brain wo IV con IMPRESSION: 1. No acute intracranial pathology. 2. No CT evidence of acute cervical spine fracture or traumatic subluxation
--- NOTE | ~2022-09-10 | XR_ITS ---
EXAMINATION: XR SHOULDER, RIGHT CLINICAL INFORMATION: Fall and deformity COMPARISON: None TECHNIQUE: Three views of the right shoulder. FINDINGS: Mildly displaced comminuted fracture the humeral neck that appears to involve the greater tuberosity. No dislocation or additional fracture. Glenohumeral joint space and acromiohumeral interval are maintained. Mild acromioclavicular arthropathy with subchondral sclerosis and small marginal osteophytes. Visualized right lung is grossly clear. Mild deformity of the right eighth rib consistent with prior fracture. XR/XR shoulder RT min 2V IMPRESSION: 1. Mildly displaced comminuted fracture of the humeral neck involving the greater tuberosity. 2. No dislocation.
--- NOTE | ~2022-09-10 | CT_ITS ---
EXAMINATION: CT HEAD WITHOUT CONTRAST CT CERVICAL SPINE WITHOUT CONTRAST CLINICAL INFORMATION: Trauma. COMPARISON: None. TECHNIQUE: Imaging was performed from the skull base to vertex without intravenous administration of contrast. In addition, helical noncontrast CT imaging was acquired through the cervical spine and source images were reviewed along with axial reconstructions and sagittal and coronal MPRs. [This CT examination was performed using dose optimization techniques as appropriate, variously including the following: *Automated exposure control *Adjustment of mA and/or kV according to patient size (this includes techniques or standardized protocols for targeted exams where dose is matched to indication/reason for exam; i.e. extremities or head) *Use of iterative reconstruction technique] DLP: 1039 mGy-cm FINDINGS: HEAD: No intracranial mass, hemorrhage, or midline shift is visualized. The ventricles and sulci are proportional. No extra-axial collections are identified. The paranasal sinuses and mastoid air cells are well aerated. CERVICAL SPINE: There is no evidence of acute cervical spine fracture. Vertebral bodies remain normal in height. Cervical vertebrae have normal alignment. There is multilevel degenerative spondylosis of the cervical spine with disc height narrowing and endplate spurs and facet joint arthrosis No pre- or paravertebral soft tissue abnormality is identified. Limited assessment of the lung apices is unremarkable. CT/CT cervical spine wo IV con IMPRESSION: 1. No acute intracranial pathology. 2. No CT evidence of acute cervical spine fracture or traumatic subluxation
--- NOTE | 2022-09-10 16:05 | ED_ITS ---
HPI - Fall General Chief Complaint: Upper Respiratory Symptoms <Kaylan Malik NP - Last Filed: 09/10/22 16:14> Stated Complaint: fell, R shoulder/ arm injury <Kaylan Malik NP - Last Filed: 09/10/22 16:14> Time Seen by Provider: 09/10/22 16:14 <Kaylan Mailk NP - Last Filed: 09/10/22 16:14> Source: patient <TRACI Mathews - Last Filed: 09/10/22 17:38> Mode of arrival: ambulatory <TRACI Mathews Last Filed: 09/10/22 17:38> Limitations: no limitations <TRACI Mathews Last Filed: 09/10/22 17:38> History of Present Illness HPI Narrative: Patient is a 72 year old assigned female at with a history of osteoporosi s, thrombocytopenia, and HTN presenting to the emergency department today with right arm pain after a fall. Patient states that she was walking into her house when she slipped and fell, hitting her forehead and her right arm. Patient denies any loss of consciousness. Patient denies any dizziness, lightheadedness, abdominal pain, nausea, vomiting, fever, chills, blurry vision, double vision, loss of vision, chest pain, difficulty breathing, shortness of breath, back pain, night sweats, pain with urination, increased urinary frequency, increased urinary urgency, blood in her urine or stool, syncope or a near syncopal episode, bowel incontinence, bladder incontinence, bowel retention, bladder retention, or any other complaints at this time. <TRACI Mathews - Last Filed: 09/10/22 17:38> MD complaint: fall <TRACI Mathews - Last Filed: 09/10/22 17:38> Onset (ago): minute(s) <TRACI Mathews Last Filed: 09/10/22 17:38> Fall from: standing <TRACI Mathews - Last Filed: 09/10/22 17:38> Fall witnessed: yes, by family <TRACI Mathews Last Filed: 09/10/22 17:38> Place fall occurred: home <TRACI Mathews Last Filed: 09/10/22 17:38> Loss of consciousness: none <TRACI Mathews - Last Filed: 09/10/22 17:38> Prolonged down time: no <TRACI Mathews - Last Filed: 09/10/22 17:38> Symptoms prior to fall: none <TRACI Mathews - Last Filed: 09/10/22 17:38> Context: tripped/slipped <TRACI Mathews - Last Filed: 09/10/22 17:38> Location of injury: head and other (right shoulder) <TRACI Mathews - Last Filed: 09/10/22 17:38> Severity: mild <TRACI Mathews - Last Filed: 09/10/22 17:38> Severity scale (1-10): 4 <TRACI Mathews - Last Filed: 09/10/22 17:38> Quality: dull <TRACI Mathews - Last Filed: 09/10/22 17:38> Associated symptoms (after fall): denies <TRACI Mathews - Last Filed: 09/10/22 17:38> Related Data Home Medications: Home Medications Medication Instructions Recorded Confirmed multivitamin 1 tab PO DAILY 11/22/20 02/05/22 calcium citrate 500 mg (2,376 mg) 1,000 mg PO DAILY 04/13/21 02/05/22 effervescent tablet vitamin B complex (B 1 tab PO DAILY 04/24/21 02/05/22 Complex-Vitamin B12 tablet) Previous Rx's Medication Instructions Recorded labetalol 200 mg tablet 200 mg PO BID #180 tabs 11/20/21 <Kaylan Malik NP - Last Filed: 09/10/22 16:14> Allergies/Adverse Reactions: Allergies Allergy/AdvReac Type Severity Reaction Status Date / Time latex AdvReac rash Verified 09/10/22 16:05 <Kaylan Malik NP - Last Filed: 09/10/22 16:14> Review of Systems Constitutional: Constitutional: Reports no additional constitutional complaints, Denies chills, Denies fever(s), Reports headache(s) and Denies night sweats <TRACI Mathesw - Last Filed: 09/10/22 17:38> Eyes: Eyes: Reports no additional eye complaints, Denies blurry vision, Denies change in vision, Denies diplopia, Denies eye discharge, Denies loss of vision and Denies eye pain <TRACI Mathews - Last Filed: 09/10/22 17:38> ENT: Denies dizziness and Reports headache(s) <TRACI Mathews - Last Filed: 09/10/22 17:38> Cardiovascular: Cardiovascular: Reports no additional cardiovascular complaints, Denies chest pain, Denies lightheadedness, Denies Loss of Consciousness and Denies dyspnea <TRACI Mathews - Last Filed: 09/10/22 17:38> Respiratory: Respiratory: Reports no additional respiratory complaints and Denies dyspnea <TRACI Mathews - Last Filed: 09/10/22 17:38> Gastrointestinal: Gastrointestinal: Reports no additional gastrointestinal complaints, Denies abdominal pain, Denies melena, Denies hematochezia, Denies change in bowel habits and Denies change in stool character <TRACI Mathews - Last Filed: 09/10/22 17:38> Genitourinary: Genitourinary: Denies hematuria, Denies urinary frequency, Denies dysuria, Denies urinary incontinence, Denies urinary hesitancy and Denies urinary urgency <TRACI Mathews - Last Filed: 09/10/22 17:38> Musculoskeletal: Musculoskeletal: Reports no additional musculoskeletal complaints, Denies numbness and Denies tingling <TRACI Mathews - Last Filed: 09/10/22 17:38> Comments: right shoulder pain <TRACI Mathews - Last Filed: 09/10/22 17:38> Neurologic: Denies dizziness, Reports headache(s), Denies loss of vision, Denies numbness and Denies tingling <TRACI Mathews - Last Filed: 09/10/22 17:38> Psychiatric: Psychiatric: Reports no additional psychiatric complaints <TRACI Mathews - Last Filed: 09/10/22 17:38> Endocrine: Endocrine: Reports no additional endocrine complaints <TRACI Mathews - Last Filed: 09/10/22 17:38> Hematologic/Lymphatic: Hematologic/Lymphatic: Reports no additional hematologic/lymphatic complaints <TRACI Mathews - Last Filed: 09/10/22 17:38> Allergic/Immunologic: Allergic/Immunologic: Reports no additional allergic/immunologic complaints <TRACI Mathews - Last Filed: 09/10/22 17:38> [facility] Past Medical History Attestation statement: The following information was validated with the patient. <TRACI Mathews - Last Filed: 09/10/22 17:38> Source: old records reviewed, obtained from family (patient's ) and nursing notes reviewed <TRACI Mathews - Last Filed: 09/10/22 17:38> Medical History: Medical History Abnormal liver function Annual visit for general adult medical examination with abnormal findings Breast cancer screening by mammogram Dyslipidemia (high LDL; low HDL) Essential hypertension Gallstones Hypersplenism Leukopenia Osteoporosis Surgical menopause Thrombocytopenia Vitamin D deficiency <Kaylan Malik NP - Last Filed: 09/10/22 16:14> Surgical History: Surgical History H/O wrist surgery History of hysterectomy <Kaylan Malik NP - Last Filed: 09/10/22 16:14> Family History Family History: Family History Father Parkinsons Mother HTN (hypertension) Pacemaker H/O bladder problems Heart problem Maternal Grandmother No problems noted. Maternal Grandfather Diabetes mellitus Paternal Grandfather History of heart attack CVD (cardiovascular disease) Paternal Grandmother Unknown family medical history Maternal Aunt Smoker Lung cancer Maternal Uncle Diabetes mellitus Sister No problems noted. <Kaylan Malik NP - Last Filed: 09/10/22 16:14> Social History Social History: Social History Household Members: Spouse Housing: House Are you a primary wound care coordinator to a significant other at home: No Do you presently have visiting nurse or other home services: No Alcohol intake: former Patient Tobacco Use Status: Former Tobacco user Cigarettes Per Day: 1 Years Smoked: 10 e-Cigarette/Vaping Use: Never Used Advance Directives: No Advance Directives Information Provided: No service: No Current occupational status: employed Cognitive needs: No Hearing needs: No Vision needs: No <Kaylan Malik NP - Last Filed: 09/10/22 16:14> Physical Exam Vital Signs: Vital Signs: Last Vital Signs Temp 98.3 F 09/10/22 16:06 Pulse 72 09/10/22 16:06 Resp 18 09/10/22 16:06 BP 181/66 H 09/10/22 16:06 Pulse Ox 97 09/10/22 16:06 O2 Del Method 09/10/22 16:06 BMI result Body Mass Index 36.6 <Kaylan Malik NP - Last Filed: 09/10/22 16:14> Vital Signs: Last Vital Signs Temp 98.3 F 09/10/22 16:06 Pulse 72 09/10/22 16:06 Resp 18 09/10/22 16:06 BP 181/66 H 09/10/22 16:06 Pulse Ox 97 09/10/22 16:06 O2 Del Method 09/10/22 16:06 BMI result Body Mass Index 36.6 <TRACI Mathews - Last Filed: 09/10/22 17:38> Const: General: cooperative, no acute distress, alert and awake <TRACI Mathews - Last Filed: 09/10/22 17:38> Nutritional Appearance: well nourished <TRACI Mathews - Last Filed: 09/10/22 17:38> Orientation/consciousness: patient oriented x3 <TRACI Mathews - Last Filed: 09/10/22 17:38> Limitations: no limitations <TRACI Mathews - Last Filed: 09/10/22 17:38> HEENT: Head: Yes normal to inspection and Yes atraumatic <TRACI Mathews - Last Filed: 09/10/22 17:38> Ears: hearing grossly normal bilaterally and external ears normal <TRACI Mathews - Last Filed: 09/10/22 17:38> General nose exam: Normal external nose present, no nasal discharge noted and no epistaxis <TRACI Mathews - Last Filed: 09/10/22 17:38> Face and sinus: Yes normal facial exam, No abrasion and No laceration <Pearl Ricks IN - Last Filed: 09/10/22 17:38> Mouth: Normal oral and palatal mucosa present, no drooling and no muffled voice <Pearl Ricks IN - Last Filed: 09/10/22 17:38> Eyes: General: appearance normal, both eyes and all related structures <Pearl Ricks IN - Last Filed: 09/10/22 17:38> Periorbital: periorbital findings normal <Pearl Ricks IN - Last Filed: 09/10/22 17:38> Eyelids: Yes eyelids normal <Pearl Ricks IN - Last Filed: 09/10/22 17:38> Conjunctivae: conjunctivae normal <Pearl Ricks IN - Last Filed: 09/10/22 17:38> Pupils: Equal, round and reactive pupils present <Pearl Ricks IN - Last Filed: 09/10/22 17:38> EOM: EOMs intact bilaterally <Pearl Ricks IN - Last Filed: 09/10/22 17:38> Neck: Neck: Yes normal visual inspection, Yes full ROM and Yes no lymphadenopathy <Pearl Ricks IN - Last Filed: 09/10/22 17:38> Chest: Chest palpation & inspection: normal inspection of the chest <Pearl Ricks IN - Last Filed: 09/10/22 17:38> Resp: Effort & Inspection: normal respiratory effort and able to speak in complete sentences <Pearl Lockwoodjosefa IN - Last Filed: 09/10/22 17:38> Auscultation: clear to auscultation bilaterally <Pearl Ricks IN - Last Filed: 09/10/22 17:38> Cardio: Rate: regular rate <Pearl Ricks IN - Last Filed: 09/10/22 17:38> Rhythm: regular rhythm <Pearl Lockwoodjosefa IN - Last Filed: 09/10/22 17:38> GI: Inspection: Yes normal to inspection <Pearl Lockwoodjosefa IN - Last Filed: 09/10/22 17:38> Palpation (GI): Soft to palpation, not firm, nontender, no guarding and not rigid <Pearl Lockwoodjosefa PA - Last Filed: 09/10/22 17:38> Neuro: General: patient oriented x3 and moves all extremities <Pearl RicksTRACI rivero - Last Filed: 09/10/22 17:38> Cranial nerves: Yes Equal, round and reactive pupils present <Pearlkwame LockwoodTRACI rivero - Last Filed: 09/10/22 17:38> Cognition (Neuro): normal cognition <Pearl Ricks IN - Last Filed: 09/10/22 17:38> Motor exam (neuro): 5/5 motor strength present throughout <Pearlkwame Lockwoodjosefa PA - Last Filed: 09/10/22 17:38> Sensory Exam: Normal double simultaneous stimulation for sensation <Pearl Ricks IN - Last Filed: 09/10/22 17:38> Coordination: [id number] test normal <Pearl Ricks IN - Last Filed: 09/10/22 17:38> Extrem: Other: pain with right arm movement <Pearl Ricks IN - Last Filed: 09/10/22 17:38> General: Yes normal to inspection and Yes capillary refill normal <Pearl Ricks, IN - Last Filed: 09/10/22 17:38> Psych: Appearance: grossly normal <TRACI Mathews - Last Filed: 09/10/22 17:38> Mental Status: mental status grossly normal <TRACI Mathews - Last Filed: 09/10/22 17:38> Affect: normal affect <TRACI Mathews - Last Filed: 09/10/22 17:38> Attitude: cooperative <TRACI Mathews - Last Filed: 09/10/22 17:38> Thought process: Normal thought process present <TRACI Mathews - Last Filed: 09/10/22 17:38> Thought content: Normal thought content present <TRACI Mathews - Last Filed: 09/10/22 17:38> Insight: Good insight present (Psych) <TRACI Mathews - Last Filed: 09/10/22 17:38> Course Course Course Narrative: Rapid medical exam. Deferred additional HPI, ROS, PE to primary provider. 72-year-old female with history of hypertension, hyperlipidemia, thrombocytopenia presents with mechanical fall with right shoulder/arm deformity and pain. Patient also had head strike with no loss of consciousness. Due to thrombocytopenia will check CT head. Patient will need x-ray of the right upper extremity and pain control. +deformity to the right upper extremity. Limited range of motion due to pain. Positive distal pulses. Likely proximal humeral fracture. VSS with exception of mild HTN. <Kaylan Malik NP - Last Filed: 09/10/22 16:14> Medications Administered Discontinued Medications Generic Name Dose Route Start Last Admin Trade Name Freq PRN Reason Stop Dose Admin Oxycodone HCl 5 mg 09/10/22 16:09 09/10/22 16:18 Oxycodone Hcl Immed Release 5 Mg Tablet PO 09/10/22 16:10 5 mg ONCE ONE Administration <Kaylan Malik NP - Last Filed: 09/10/22 16:14> Medications Administered Discontinued Medications Generic Name Dose Route Start Last Admin Trade Name Freq PRN Reason Stop Dose Admin Oxycodone HCl 5 mg 09/10/22 16:09 09/10/22 16:18 Oxycodone Hcl Immed Release 5 Mg Tablet PO 09/10/22 16:10 5 mg ONCE ONE Administration <TRACI Mathews - Last Filed: 09/10/22 17:38> Procedures Orthopedic Splinting/Casting Injury #1: Side: right <TRACI Mathews - Last Filed: 09/10/22 17:38> Upper Extremity Injury Location: shoulder <TRACI Mathews - Last Filed: 09/10/22 17:38> Upper Extremity Immobilizer: sling/shoulder immobilizer <TRACI Mathews - Last Filed: 09/10/22 17:38> Medical Decision Making Medical Decision Making MDM Narrative: Patient is a 72 year old assigned female at with a history of hypertension, thrombocytopenia, and osteoporosis presenting to the emergency department today with right shoulder pain. Patient's physical exam showed pain with movement of the right arm but was otherwise unremarkable. Patient's right shoulder x-ray showed an acute right humeral fracture. Patient's head and c- spine CTs showed no acute process. I explained my physical exam findings as well as all test results to the patient and the patient's . I answered all questions asked by the patient and the patient's . Patient received PO Oxyocodone and a sling on the right arm which she stated helped her pain significantly. I stressed the importance of the patient taking her medication as prescribed. I stressed the importance of the patient following up with her primary care provider and an orthopedic provider. I stressed the importance of the patient returning to the emergency department immediately if her symptoms were to worsen or if she were to develop any dizziness, shortness of breath, difficulty breathing, chest pain, blurry vision, loss of vision, nausea, vomiting, abdominal pain, fever, chills, back pain, or any other complaints. Patient and the patient's verbalized agreement and understanding with this treatment plan and discharge. <TRACI Mathews - Last Filed: 09/10/22 17:38> Differential Diagnosis Differential Diagnoses: The differential diagnosis associated with the presentation includes <TRACI Mathews - Last Filed: 09/10/22 17:38> fall, humeral fracture <TRACI Mathews - Last Filed: 09/10/22 17:38> Radiology Impression Discussion of test interpretation with radiology: I have reviewed the radiologist's reading. <TRACI Mathews - Last Filed: 09/10/22 17:38> Radiologist Impression: EXAMINATION: CT HEAD WITHOUT CONTRAST CT CERVICAL SPINE WITHOUT CONTRAST CLINICAL INFORMATION: Trauma.? COMPARISON: None. TECHNIQUE: Imaging was performed from the skull base to vertex without intravenous administration of contrast. In addition, helical noncontrast CT imaging was acquired through the cervical spine and source images were reviewed along with axial reconstructions and sagittal and coronal MPRs. [This CT examination was performed using dose optimization techniques as appropriate, variously including the following: *Automated exposure control *Adjustment of mA and/or kV according to patient size (this includes techniques or standardized protocols for targeted exams where dose is matched to indication/reason for exam; i.e. extremities or head) *Use of iterative reconstruction technique] DLP: 1039 mGy-cm FINDINGS: HEAD: No intracranial mass, hemorrhage, or midline shift is visualized. The ventricles and sulci are proportional. No extra-axial collections are identified. The paranasal sinuses and mastoid air cells are well aerated. CERVICAL SPINE: There is no evidence of acute cervical spine fracture. Vertebral bodies remain normal in height. Cervical vertebrae have normal alignment. There is multilevel degenerative spondylosis of the cervical spine with disc height narrowing and endplate spurs and facet joint arthrosis No pre- or paravertebral soft tissue abnormality is identified. Limited assessment of the lung apices is unremarkable. CT/CT head/brain wo IV con IMPRESSION: 1. No acute intracranial pathology. 2. No CT evidence of acute cervical spine fracture or traumatic subluxation Dictated By: Haim Howard MD Signed By: Electronically signed by Haim Howard MD 09/10/221701 EXAMINATION: XR SHOULDER, RIGHT CLINICAL INFORMATION: Fall and deformity? COMPARISON: None? TECHNIQUE: Three views of the right shoulder. FINDINGS: Mildly displaced comminuted fracture the humeral neck that appears to involve the greater tuberosity. No dislocation or additional fracture. Glenohumeral joint space and acromiohumeral interval are maintained. Mild acromioclavicular arthropathy with subchondral sclerosis and small marginal osteophytes. Visualized right lung is grossly clear. Mild deformity of the right eighth rib consistent with prior fracture.? XR/XR shoulder RT min 2V IMPRESSION: 1.? Mildly displaced comminuted fracture of the humeral neck involving the greater tuberosity. 2.? No dislocation. Dictated By: Cedric Hernández Signed By: Electronically signed by Cedric?Edgar 09/10/221701 <TRACI Mathews - Last Filed: 09/10/22 17:38> Independent Historian Clinical information obtained from an independent historian. History obtained from or confirmed by: Spouse () <TRACI Mathews - Last Filed: 09/10/22 17:38> Chronic Conditions Patient?s care impacted by: Hypertension <TRACI Mathews - Last Filed: 09/10/22 17:38> Discharge Plan Discharge Clinical Impression: Humeral fracture <Kaylan Malik NP - Last Filed: 09/10/22 16:14> Patient Disposition: Home, Self-Care <Kaylan Malik NP - Last Filed: 09/10/22 16:14> Instructions: How to Use a Sling (ED) <Kaylan Malik NP - Last Filed: 09/10/22 16:14> Additional Instructions: Follow up with your primary care provider and an orthopedic provider. Return to the emergency department immediately if your symptoms worsen or if you develop any dizziness, shortness of breath, difficulty breathing, chest pain, blurry vision, loss of vision, nausea, vomiting, abdominal pain, fever, chills, back pain, or any other complaints. <Kaylan Malik NP - Last Filed: 09/10/22 16:14> Prescriptions: No Action labetalol 200 mg tablet 200 mg PO BID Qty: 180 3RF multivitamin Tablet 1 tab PO DAILY vitamin B complex [B Complex-Vitamin B12] Tablet 1 tab PO DAILY calcium citrate 500 mg tablet, effervescent 1,000 mg PO DAILY <Kaylan Malik NP - Last Filed: 09/10/22 16:14> Referrals: [facility] [Provider Group] (Call to establish and follow up with an orthopedic provider. ) Diane Stockton MD [Primary Care Provider] - <Kaylan Malik NP - Last Filed: 09/10/22 16:14> Interventions: ED Discharge Assessment Last Done: 09/10/22 17:29 <Kaylan Malik NP - Last Filed: 09/10/22 16:14> Print Language: Urdu <Kaylan Malik NP - Last Filed: 09/10/22 16:14>
[2022-09-10 16:06] VITALS: BP 181/66; PULSE 72; RESP 18; TEMP 36.8; O2SAT 97; BMI 36.6
[2022-09-10] MEDS: oxyCODONE HCl Immed Release 5 MG TABLET PO (16:18)
== END 2022-09-10 17:33 | disposition home or self-care (01) ==
PROVIDERS: Emergency Provider Emergency Medicine; PCP Internal Medicine
DX: S42.211A Unspecified displaced fracture of surgical neck of right humerus, initial encounter for closed fracture (principal); W01.0XXA Fall on same level from slipping, tripping and stumbling without subsequent striking against object, initial encounter; Y93.9 Activity, unspecified; Y92.019 Unspecified place in single-family (private) house as the place of occurrence of the external cause; Y99.9 Unspecified external cause status
CPT/HCPCS: 70450; 72125; 73030; 99283; 99284

== ENCOUNTER 2022-09-18 | Outpatient (REF) | payer MEDICARE, SELFPAY ==
--- NOTE | ~2022-09-18 | XR_ITS ---
EXAMINATION: XR SHOULDER, RIGHT CLINICAL INFORMATION: M25.519 - Pain in unspecified shoulder COMPARISON: Right shoulder radiographs 09/10/2022. TECHNIQUE: Right shoulder is imaged in 2 views. FINDINGS: There is comminuted fracture proximal right humerus with transverse component humeral neck and vertically oriented component base greater tuberosity. Alignment is similar to prior study 09/10/2022. There is mild inferior subluxation of the humeral head within the glenoid fossa. No dislocation. The acromioclavicular alignment is normal. No interval callus formation appreciated. XR/XR shoulder RT min 2V IMPRESSION: Comminuted fracture proximal right humerus similar in alignment to prior study 09/10/2022.
== END 2022-09-18 00:01 ==
LOC: HO.HOSX
PROVIDERS: Visit Provider Physician Assistant
DX: S42.201A Unspecified fracture of upper end of right humerus, initial encounter for closed fracture (principal)
CPT/HCPCS: 73030; 99202

== ENCOUNTER 2022-10-16 09:59 | Outpatient (REF) | payer MEDICARE, SELFPAY ==
--- NOTE | ~2022-10-16 | XR_ITS ---
EXAMINATION: XR SHOULDER, RIGHT CLINICAL INFORMATION: Right shoulder pain. COMPARISON: September 18, 2022. TECHNIQUE: Two views of the right shoulder. XR/XR shoulder RT min 2V FINDINGS/IMPRESSION: There has been no significant radiographic change compared with September 18, 2022. Examination again demonstrates a comminuted fracture of the right proximal humeral metaphysis/humeral head. Fracture fragments appear in similar orientation. No callus formation is identified. There may be mild subluxation of the glenohumeral joint.
== END 2022-10-16 10:00 | disposition home or self-care (01) ==
LOC: HO.HOSX 09:59
PROVIDERS: Visit Provider Physician Assistant
DX: M25.511 Pain in right shoulder (principal); S42.201A Unspecified fracture of upper end of right humerus, initial encounter for closed fracture; W18.39XA Other fall on same level, initial encounter; X50.1XXA Overexertion from prolonged static or awkward postures, initial encounter; Y93.89 Activity, other specified; Y92.9 Unspecified place or not applicable; Y99.8 Other external cause status
CPT/HCPCS: 73030; 99212

== ENCOUNTER → 2022-11-16 11:00 | Outpatient (BNVA) | payer MEDICARE, SELFPAY | PROVIDERS: PCP Internal Medicine; Visit Provider Internal Medicine Gastroenterology | DX: D73.1 Hypersplenism (principal); R94.5 Abnormal results of liver function studies | CPT/HCPCS: 99212 ==

== ENCOUNTER 2022-11-26 10:54 | Outpatient (REF) | payer MEDICARE, SELFPAY ==
--- NOTE | ~2022-11-26 | XR_ITS ---
EXAMINATION: XR SHOULDER, RIGHT CLINICAL INFORMATION: Pain. COMPARISON: Prior radiographs, most recently 10/16/2022. TECHNIQUE: AP external rotation, Grashey, scapular Y, and axillary views of the right shoulder. FINDINGS: There is bony demineralization. An impacted, mildly displaced and comminuted fracture is redemonstrated of the surgical neck of the proximal right humerus. No significant new callus formation is seen. There is stable subluxation of the glenohumeral joint, without dinesh dislocation. The acromioclavicular and coracoclavicular intervals are normal. There is a distal acromial undersurface osteophyte, and there is cortical irregularity of the greater tuberosity of the proximal right humerus, suggesting impingement. No dinesh calcific tendinitis is seen. There is no foreign body. No right pneumothorax is seen. XR/XR shoulder RT min 2V IMPRESSION: 1. A mildly displaced and impacted right humeral neck fracture is redemonstrated, in stable alignment. No significant new callus formation is noted. 2. There is stable subluxation of the right glenohumeral joint, without dinesh dislocation. 3. There are findings consistent with right rotator cuff impingement.
== END 2022-11-26 10:55 | disposition home or self-care (01) ==
LOC: HO.HOSX 10:54
PROVIDERS: Visit Provider Physician Assistant
DX: S42.201A Unspecified fracture of upper end of right humerus, initial encounter for closed fracture (principal)
CPT/HCPCS: 73030; 99212

== ENCOUNTER 2022-12-03 08:35 | Outpatient (REF) | payer MEDICARE, SELFPAY ==
[2022-12-03 12:15] LABS: Cholesterol 169 mg/dL; HDL Cholesterol 42 mg/dL; LDL Cholesterol Calculated 108 mg/dl; Triglycerides 97 mg/dL
[2022-12-03 12:34] LABS: Vitamin D 25-OH Total 41.8 ng/mL (>30)
== END 2022-12-03 08:36 | disposition home or self-care (01) ==
LOC: HO.HMGCLDS 08:35
PROVIDERS: PCP Internal Medicine; Visit Provider Internal Medicine
DX: E89.40 Asymptomatic postprocedural ovarian failure (principal); I10 Essential (primary) hypertension; M81.0 Age-related osteoporosis without current pathological fracture
CPT/HCPCS: 36415; 80061; 82306

== ENCOUNTER 2023-01-25 07:11 | Outpatient (REF) | payer MEDICARE, SELFPAY ==
--- NOTE | ~2023-01-25 | XR_ITS ---
EXAMINATION: XR SHOULDER, RIGHT CLINICAL INFORMATION: Fracture COMPARISON: Previous x-ray most recent October 2022 TECHNIQUE: 3 views of the right shoulder. FINDINGS: Impacted right humeral neck fracture. Fracture line still seen. There is a slight interval increase in bony callus formation compared to prior exam. Alignment unchanged. Humeral head is slightly low with respect to the glenoid. Arthritis at the acromioclavicular joint. Osteopenia. XR/XR shoulder RT min 2V IMPRESSION: Impacted right humeral neck fracture with slight interval increase in bony callus formation compared to [id number]. Alignment unchanged.
== END 2023-01-25 07:12 | disposition home or self-care (01) ==
LOC: HO.HOSX 07:11
PROVIDERS: Visit Provider Physician Assistant
DX: S42.201D Unspecified fracture of upper end of right humerus, subsequent encounter for fracture with routine healing (principal); M25.551 Pain in right hip; X58.XXXD Exposure to other specified factors, subsequent encounter
CPT/HCPCS: 73030; 99212

== ENCOUNTER 2023-02-23 08:50 | Outpatient (REF) | payer MEDICARE, SELFPAY ==
--- NOTE | ~2023-02-23 | MM_ITS ---
EXAMINATION: MM SCREENING DIGITAL BREAST TOMOSYNTHESIS, BILATERAL CLINICAL INFORMATION: Screening. Asymptomatic. The lifetime risk of breast cancer based on the Tyrer-Cuzick Model is 3%. COMPARISON: Mammography: 11/17/2021, 11/11/2020, 05/29/2019 TECHNIQUE: Digital breast tomosynthesis is performed in both the craniocaudal and mediolateral oblique views along with computer-aided detection (CAD). Synthesized 2D images are generated from the tomosynthesis. FINDINGS: There are scattered areas of fibroglandular density (ACR BI-RADS breast composition Category b). There are no significant masses, abnormal calcifications, or other abnormalities. No architectural abnormality or developing density or significant change from prior studies. There is biopsy clip marker mid 6:00 right breast. The axilla are unremarkable. MM/MM tomosynthesis screening BI IMPRESSION: No mammographic evidence of malignancy. ASSESSMENT: BI-RADS 1: Negative RECOMMENDATION: Routine annual mammography screening. This patient's information was entered into a reminder system with a target due date for their next mammogram.
== END 2023-02-23 08:51 | disposition home or self-care (01) ==
LOC: HO.MAMMO 08:50
PROVIDERS: PCP Internal Medicine; Visit Provider Internal Medicine
DX: Z12.31 Encounter for screening mammogram for malignant neoplasm of breast (principal)
CPT/HCPCS: 77063; 77067

== ENCOUNTER → 2023-03-08 10:06 | Outpatient (BNVA) | payer MEDICARE, SELFPAY | PROVIDERS: PCP Internal Medicine; Visit Provider Internal Medicine Gastroenterology | DX: R94.5 Abnormal results of liver function studies (principal); D69.6 Thrombocytopenia, unspecified; D73.1 Hypersplenism | CPT/HCPCS: 99212 ==

== ENCOUNTER 2023-03-08 10:36 | Outpatient (REF) | payer MEDICARE, SELFPAY ==
[2023-03-08 11:22] LABS: Alanine Aminotransferase 41 U/L (0-31); Albumin Level 3.5 g/dL (3.5-5.0); Alkaline Phosphatase 128 U/L (39-117); Anion Gap 10 (12-20); Aspartate Amino Transferase 59 U/L (5-31); Bilirubin Total 2.2 mg/dL (0.0-1.0); Blood Urea Nitrogen 15 mg/dL (9-16); Calcium 9.5 mg/dL (8.4-10.2); Carbon Dioxide 25 mmol/L (22-29); Chloride 110 mmol/L (96-108); Estimated Glomerular Filt Rate > 60; Glucose Random 101 mg/dL (60-115); Potassium 3.9 mmol/L (3.3-5.1); Sodium 141 mmol/L (135-145); Total Protein 6.9 g/dL (6.5-8.0)
[2023-03-08 11:42] LABS: Basophils Percent Auto 0.5 % (0-2); Eosinophils Absolute Auto 0.1 X10*3/uL (0.0-0.4); Eosinophils Percent Auto 6.1 % (0-4); Hematocrit 37.4 % (37.0-47.0); Hemoglobin 12.3 g/dl (12.0-16.0); Lymphocytes Absolute Auto 0.5 X10*3/uL (1.2-4.9); Lymphocytes Percent Auto 24.2 % (20-40); MANUAL DIFF FLAG SCAN; Mean Corpuscular HGB Conc 32.9 g/dl (31.0-35.0); Mean Corpuscular Hemoglobin 32.7 pg (27.0-33.0); Mean Corpuscular Volume 99.5 fL (80.0-98.0); Monocytes Absolute Auto 0.2 X10*3/uL (0.1-1.2); Monocytes Percent Auto 9.6 % (2-11); Neutrophils Absolute Auto 1.2 x10*3/uL (2.0-8.3); Neutrophils Percent Auto 59.6 % (45-73); Red Blood Count 3.76 X10*6/uL (4.20-5.50); Red Cell Distribution Width 14.5 % (11.0-16.0); SCAN SMEAR FLAG 1
[2023-03-08 11:43] LABS: Platelet Count 23 X10*3/uL (160-400)
[2023-03-08 12:04] LABS: SLIDE REVIEW VERIFIED
== END 2023-03-08 10:37 | disposition home or self-care (01) ==
LOC: HO.LAB 10:36
PROVIDERS: Visit Provider Internal Medicine Medical Oncology
DX: D72.819 Decreased white blood cell count, unspecified (principal)
CPT/HCPCS: 36415; 80053; 85025

== ENCOUNTER 2023-03-13 11:00 | Outpatient (RCR) | payer MEDICARE, SELFPAY ==
--- NOTE | 2022-10-24 14:59 | MHC.PT.EP ---
[facility] [place] Office [place] Office [place] Office [address] [phone] F: [phone] F: [phone] F: [phone] F: [phone] Physical Therapy Plan of Care Date of Evaluation: Date of Surgery: Diagnosis: Fracture of Proximal end of Right humerus Assessment: Patient is a 72 year old R handed female who presents with s/s consistent with fracture of R prox humerus. 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 Patient past medical history includes osteoporosis, and a wrist fracture. Current impairments include pain, posture, ROM, strength, activity tolerance and functional mobility. Functional limitations include decreased ability to use RUE for all daily activities. Patient is motivated with good rehab potential. Skilled PT will address impairments and functional limitations in order to achieve goals. Frequency and Duration: The patient will be seen 2x/week for 5 weeks Short Term Goals: I with HEP - 2 weeks AAROM flexion and abd 90 - 3 weeks Be able to sleep without pain - 3 weeks Fdc Goals: AAROM ER/IR arc 120 - 5 weeks AAROM flexion and abd 120 - 5 weeks Strength 4-/5 grossly - 5 weeks SPADI 45/130 or better - 5 weeks Treatment Plan: Modalities to reduce pain, spasms and effusion. Manual therapy to restore motion and function. Therapeutic exercise to improve strength and flexibility. Neuromuscular re-education for posture and balance. Therapeutic activities to return to functional activities of daily living. Electronically signed by: Koko Tilley, PT Please sign and return to therapist. Thank you for your referral.
--- NOTE | 2023-03-14 08:03 | MHC.PT.DC ---
[facility] [place] Office [place] Office [place] Office [address]ck[address] [phone] F: [phone] F: [phone] F: [phone] F: [phone] Physical Therapy Discharge Report Diagnosis: Fracture of Proximal end of Right humerus Date of Surgery: Date of Evaluation: 10/24/22 Date of Discharge: 03/13/23 Treatments to Date: 20 Cancellations to Date: No Shows to Date: Discharge Status: Improved Function Independent with HEP Discharge Summary: 03/13/23: I with HEP. AAROM flexion to 135. ER to 55, IR to 55 and L3. Strength 4-/5 grossly within available ROM except ER (3+/5). She has been compliant and motivated throughout. She is appropriate for d/c to HEP at this time. 03/01/23: pt with no new s/s. compliant with HEP. she will continue HEP for 2 more weeks. 1 more follow, then d/c to HEP. Assess IR next visit. 02/22/23: we reviewed HEP including IR stretching. pt compliant with HEP and in agreement to start to transition to HEP 02/15/23: pt progressing well still. IR stretching educated in today. no adverse reactions. we will continue to focus on this until d/c. 02/11/23: pt is responding well. improved overhead reaching weight today with no increased pain. we will update HEP nv. 02/06/23: pt has been encouraged with continued progress on strength and ROM. we will begin to taper to HEP over the next 2-3 visits. 02/01/23: pt has been feeling better with overhead activities. x-rays show routine healing to PA report. 01/22/23: pt progressing with fleixon AROM. improved quality of movement with flexion as well. 01/07/23: pt has been feeling a little better since last week. added overhead activities, no adverse reactions. AROM flexion to 107 4/; Pt exs at home with program. Pt noted soreness, but no increase in pain. 12/28/22: pt was not feeling well and has not been able to do much of her HEP for 2 weeks. we resumed program and will do re-assessment and progress NV as tolerated. 12/12/22: pt has been feeling a little sore since the weekend. we held on progression today. NV we will discern plan for moving forward. 12/07/22: good response to addition of strength intervention. 12/05/22: pt progressing with strength. no adverse reactions. still with TTP in UE at delt insertion and LS insertion 11/30/22: ROM is progressing. we will slowly implement and progress strength. 11/22/22: pt still with slow progress on AAROM. she notes compliance with HEP but we have been hesitant to progress strength. 11/15/22: pt progressing with AAROM to tolerance for flex, scaption. we will continue to progress as tolerated. 11/08/22: pt progressing well with skilled PT with focus on AAROM activities. AAROm flexion to 99, scaption 96 11/02/22: pt has been feeling a little better after PT and moving a little better. pain today 01/07. continue to progress as tolerated. 10/29/22: pt progressed with skilled PT for shoulder gentle ROM. significant TTP and tightness in R UT and LS. Manual STM done to relieve. Good response. Patient is a 72 year old R handed female who presents with s/s consistent with fracture of R prox humerus. 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 Patient past medical history includes osteoporosis, and a wrist fracture. Current impairments include pain, posture, ROM, strength, activity tolerance and functional mobility. Functional limitations include decreased ability to use RUE for all daily activities. Patient is motivated with good rehab potential. Skilled PT will address impairments and functional limitations in order to achieve goals. Electronically signed by: Koko Tilley, PT Please sign and return to therapist. Thank you for your referral.
== END 2023-03-14 08:04 | disposition home or self-care (01) ==
LOC: HO.PTCHIC 11:00
PROVIDERS: PCP Internal Medicine; Visit Provider Physician Assistant
DX: S42.201D Unspecified fracture of upper end of right humerus, subsequent encounter for fracture with routine healing (principal)
CPT/HCPCS: 97110; 97140; 97163

== ENCOUNTER 2023-03-13 13:19 | Outpatient (REF) | payer MEDICARE, SELFPAY ==
--- NOTE | ~2023-03-13 | MM_ITS ---
EXAMINATION: BONE DENSITOMETRY CLINICAL INDICATION: Age-related osteoporosis without current pathological fracture. COMPARISON: Baseline BD dated 11/11/2020. TECHNIQUE: Using a [employer] DXA System (software version: 13.1) manufactured by [employer], dual-energy x-ray absorptiometry was performed of the lumbar spine and left hip. The images are of good technical quality. Summary results are attached. FINDINGS: AP SPINE L1-L4: Current: BMD 0.680 g/cm2, Z-score -2.6, T-score -4.2, osteoporosis, 5.8% decrease from baseline (<5% change is not significant). Baseline: BMD 0.722 g/cm2. LEFT FEMUR, NECK: Current: BMD 0.736 g/cm2, Z-score -0.5, T-score -2.2, osteopenia. Baseline: BMD 0.684 g/cm2. LEFT FEMUR, TOTAL: Current: BMD 0.835 g/cm2, Z-score 0.1, T-score -1.4, osteopenia, 3.1% increase from baseline (<5% change is not significant). Baseline: BMD 0.810 g/cm2. IDENTIFIED RISK FACTORS: History of adult fracture. Osteoporosis. Height loss. Menopause. Hysterectomy. Bilateral oophorectomy. HISTORY OF FRACTURE: Humerus. Wrist. MEDICATIONS: Calcium supplement and/or multivitamin. Vitamin D. MM/XR DEXA axial skeleton IMPRESSION: 1. DIAGNOSIS: Osteoporosis based on the lowest T-score value of -4.2 in the lumbar spine applying World Health Organization criteria. 2. 10-YEAR FRACTURE RISK PREDICTION, FRAX: According to the guidelines, FRAX calculation should only be performed on patients in the osteopenia bone density category.?Therefore, FRAX was not performed on this patient.? 3. Treatment Recommendations: NOF guidelines recommend consideration for treatment in postmenopausal women and men age 50 and older presenting with the following: -A hip or vertebral (clinical or morphometric) fracture. -T-score less than or equal to -2.5 at the femoral neck or spine after appropriate evaluation to exclude secondary causes. -Low bone mass at the hip or spine and a 10-year fracture probability by FRAX of greater than or equal to 3% for hip fracture or greater than or equal to 20% for major osteoporotic fracture based on the [place] adapted WHO algorithm. 4. Other Recommendations: All treatment decisions require clinical judgment and consideration of individual patient factors, including patient preferences, comorbidities, previous drug use, risk factors not captured in the FRAX model (e.g. frailty, falls, vitamin D deficiency, increased bone turnover, interval significant decline in bone density) and possible under or overestimation of fracture risk by FRAX. Additional medical evaluation for secondary cause of low bone mineral density may be appropriate. FUTURE SCAN RECOMMENDATION: People with diagnosed cases of osteoporosis or at high risk for fracture should have regular bone mineral density tests. For patients eligible for Medicare, routine testing is allowed once every 2 years. The testing frequency can be increased to one year for patients who have rapidly progressing disease, those who are receiving or discontinuing medical therapy to restore bone mass, or have additional risk factors.
== END 2023-03-13 13:20 | disposition home or self-care (01) ==
LOC: HO.MAMMO 13:19
PROVIDERS: PCP Internal Medicine; Visit Provider Internal Medicine
DX: Z13.820 Encounter for screening for osteoporosis (principal); Z78.0 Asymptomatic menopausal state; M81.0 Age-related osteoporosis without current pathological fracture; E89.40 Asymptomatic postprocedural ovarian failure
CPT/HCPCS: 77080

== ENCOUNTER 2023-04-25 09:25 | Outpatient (REF) | payer MEDICARE, SELFPAY ==
[2023-04-25 09:47] LABS: MANUAL DIFF FLAG NO
[2023-04-25 09:50] LABS: Basophils Percent Auto 0.4 % (0-2); Eosinophils Absolute Auto 0.1 X10*3/uL (0.0-0.4); Eosinophils Percent Auto 3.1 % (0-4); Hemoglobin 11.2 g/dl (12.0-16.0); Imm Gran Abs Auto 0.01 X10*3/uL (0.00-0.03); Imm Gran Pct Auto 0.4 % (0.0-0.4); Lymphocytes Absolute Auto 0.6 X10*3/uL (1.2-4.9); Mean Corpuscular HGB Conc 32.9 g/dl (31.0-35.0); Mean Corpuscular Hemoglobin 32.7 pg (27.0-33.0); Mean Corpuscular Volume 99.1 fL (80.0-98.0); Mean Platelet Volume 12.4 fL (9.4-12.3); Monocytes Absolute Auto 0.2 X10*3/uL (0.1-1.2); Monocytes Percent Auto 8.8 % (2-11); Neutrophils Absolute Auto 1.7 x10*3/uL (2.0-8.3); Neutrophils Percent Auto 66.3 % (45-73); Red Blood Count 3.43 X10*6/uL (4.20-5.50); Red Cell Distribution Width 13.7 % (11.0-16.0); White Blood Count 2.6 X10*3/uL (4.8-10.8)
[2023-04-25 09:57] LABS: Platelet Count 41 X10*3/uL (160-400)
[2023-04-25 10:08] LABS: Alanine Aminotransferase 29 U/L (0-31); Albumin Level 3.1 g/dL (3.5-5.0); Alkaline Phosphatase 131 U/L (39-117); Anion Gap 14 (12-20); Aspartate Amino Transferase 41 U/L (5-31); Bilirubin Total 1.4 mg/dL (0.0-1.0); Blood Urea Nitrogen 16 mg/dL (9-16); Calcium 9.3 mg/dL (8.4-10.2); Carbon Dioxide 21 mmol/L (22-29); Chloride 110 mmol/L (96-108); Estimated Glomerular Filt Rate 58; Glucose Random 107 mg/dL (60-115); Potassium 3.8 mmol/L (3.3-5.1); Sodium 141 mmol/L (135-145); Total Protein 6.7 g/dL (6.5-8.0)
== END 2023-04-25 09:26 | disposition home or self-care (01) ==
LOC: HO.LAB 09:25
PROVIDERS: PCP Internal Medicine; Visit Provider Internal Medicine Medical Oncology
DX: D72.819 Decreased white blood cell count, unspecified (principal)
CPT/HCPCS: 36415; 80053; 85025

== ENCOUNTER 2023-07-12 09:15 | Outpatient (AMB) | payer MEDICARE, SELFPAY ==
[2023-07-12 09:20] VITALS: BP 165/60; PULSE 66; BMI 30.4
--- NOTE | 2023-07-12 09:20 | A.OFFVIS_ITS ---
Intake Vital Signs 07/12/23 09:20 Height 4 ft 10 in Weight 145 lb 8.081 oz BMI 30.4 BP 165/60 H Blood Pressure Location Lt brachial Position Sitting Pulse 66 Intake Visit Reasons: 4 Month follow up Intake Note: Arielle presents in the office as a 4 month follow up. CC: She states that she is feeling fine. Allergies latex Adverse Reaction (Verified 07/12/23 09:24) rash HPI 4 Month follow up HPI Details 73 yr old f w HTN here for f/u due to ab n LFT RECAP: she has had chronic abn LFT and low plts since at least 2013 with coarse liver texture saw hematology and had extensive work up, no hematology cause found but splenomegaly noted with coarse liver she fell and fractured her right humerus, was undergoing therapy LFT 09/2022 bili 2.5 AST 49 alk phos: 126 INR: 1.3 INTERIM: She has been doing well no major issues or complaints no night sweats no fevers no sore throats no nose bleeds she had a pos cologuard, not seen any overt GI bleeding she is still working hard on her shoulder, slowly recovering appetite is good EXAM: GENERAL: The patient is well developed and nontoxic. VITAL SIGNS:see workflow HEENT: Nonicteric sclerae, PERRLA, EOMI. Oropharynx clear. Moist mucous membranes. Conjunctivae appear well perfused. No thyroid mass. CHEST: Chest wall is nontender. HEART: Regular rate and rhythm without murmurs. LUNGS: Clear to auscultation bilaterally. ABDOMEN: Soft, positive bowel sounds, nontender, no organomegaly.no flank tenderness SKIN: No rash, no excessive bruising, petechiae, or purpura. NEUROLOGIC: Cranial nerves II-XII intact without motor/sensory deficit. psych: nml affect MS: better ROM now A/P: 1/ Abn LFT, longstanding incl low plts a nd WCC (strangely RBC are nml), could be cirrhosis and hypersplenism from LOONEY or nodular regen hyperplasia with hypersplenism--had neg heme work up. She is high risk for liver biopsy and does not want this, PLAN: 1/ she is not keen on CT or MRI-i did or [facility] US, still not had this, will reorder 2/ discussed egd and colo due to liver d isease and os cologuard, sent mssg to Dr Bansal re: doptelet with checking of plts before and day of procedure < ?might need plts as well 3/ still drinking black coffee which can be hepto protective PFSH Medical History Depression Fracture of proximal end of right humerus Annual visit for general adult medical examination with abnormal findings Abnormal liver function Vitamin D deficiency Osteoporosis Dyslipidemia (high LDL; low HDL) Essential hypertension Thrombocytopenia Leukopenia Hypersplenism Gallstones Surgical menopause Breast cancer screening by mammogram Surgical History H/O wrist surgery History of hysterectomy Family History Father Parkinsons Mother HTN (hypertension) Pacemaker H/O bladder problems Heart problem Maternal Grandmother No problems noted. Maternal Grandfather Diabetes mellitus Paternal Grandfather History of heart attack CVD (cardiovascular disease) Paternal Grandmother Unknown family medical history Maternal Aunt Smoker Lung cancer Maternal Uncle Diabetes mellitus Sister No problems noted. Social History Household Members: Spouse Housing: House Are you a primary lawn care specialist to a significant other at home: No Do you presently have visiting nurse or other home services: No Alcohol intake: former Patient Tobacco Use Status: Former Tobacco user Cigarettes Per Day: 1 Years Smoked: 10 e-Cigarette/Vaping Use: Never Used service: No Current occupational status: employed Cognitive needs: No Hearing needs: No Vision needs: No Physical Exam Vital Signs: Last Vital Signs Pulse 66 07/12/23 09:20 BP 165/60 H 07/12/23 09:20 BMI result Body Mass Index 30.4 Assessment & Plan Assessment & Plan (1) Abnormal liver function: Code(s): R94.5 - Abnormal results of liver function studies (2) Thrombocytopenia: Code(s): D69.6 - Thrombocytopenia, unspecified (3) Hypersplenism: Code(s): D73.1 - Hypersplenism Coding Level of Care Code Est Pt Level 4 (48984) Diagnoses Abnormal liver function R94.5 Thrombocytopenia D69.6 Hypersplenism D73.1
== END 2023-07-12 09:48 | disposition home or self-care (01) ==
PROVIDERS: PCP Internal Medicine; Visit Provider Internal Medicine Gastroenterology
DX: R94.5 Abnormal results of liver function studies (principal); D69.6 Thrombocytopenia, unspecified; D73.1 Hypersplenism
CPT/HCPCS: 99214

== ENCOUNTER → 2023-07-12 09:15 | Outpatient (BNVA) | payer MEDICARE, SELFPAY | PROVIDERS: PCP Internal Medicine; Visit Provider Internal Medicine Gastroenterology | DX: D69.6 Thrombocytopenia, unspecified (principal); D73.1 Hypersplenism; R94.5 Abnormal results of liver function studies | CPT/HCPCS: 99212 ==

== ENCOUNTER 2023-08-01 10:46 | Outpatient (REF) | payer MEDICARE, SELFPAY ==
--- NOTE | ~2023-08-01 | XR_ITS ---
EXAMINATION: XR SHOULDER, RIGHT CLINICAL INFORMATION: Pain in unspecified shoulder COMPARISON: Right shoulder 01/25/2023 TECHNIQUE: AP neutral rotation, Grashey and axillary views of the right shoulder. FINDINGS: There is diffuse osteopenia. Impacted right humeral neck fracture. Sclerosis along the fracture line is less evident. Alignment is unchanged. The humeral head is slightly low with respect to the glenoid. There is mild degenerative change acromioclavicular joint. No abnormal soft tissue calcifications. XR/XR shoulder RT min 2V IMPRESSION: Healing impacted right humeral neck fracture. Alignment is unchanged.
== END 2023-08-01 10:47 | disposition home or self-care (01) ==
LOC: HO.HOSX 10:46
PROVIDERS: Visit Provider Physician Assistant
DX: M25.511 Pain in right shoulder (principal); S42.201D Unspecified fracture of upper end of right humerus, subsequent encounter for fracture with routine healing; X58.XXXD Exposure to other specified factors, subsequent encounter
CPT/HCPCS: 73030; 99212

== ENCOUNTER 2023-08-01 11:13 | Outpatient (AMB) | payer MEDICARE, SELFPAY ==
--- NOTE | 2023-08-01 11:28 | A.OFFVIS_ITS ---
Intake Intake Visit Reasons: ov-RT proximal humerus fx 09/10/22 Intake Note: Arielle is a 72 year old right hand dominant female who presents today for a follow up for her right proximal humerus fx, DOI 09/10/22. Patient reports she is getting better, however she tends to get a throbbing pain here and there. She states that PT went really well. Allergies latex Adverse Reaction (Verified 08/01/23 11:31) rash HPI ov-RT proximal humerus fx 09/10/22 HPI Details 73-year-old right hand dominant female bill vyas presents in the office today for a follow up of a right shoulder proximal humerus fracture, which occurred on 09/10/2022 status post a slip and fall when walking in her home. While in the office today she states she is getting better and the pain is not longer constant. However, she does reports intermittent ?jabbing? pain in the right shoulder. She feels physical therapy went well. She has notice improvement in her ROM. She confirms she was taking Tylenol for the pain, but has not been taking it recently. [facility] Medical History Depression Fracture of proximal end of right humerus Annual visit for general adult medical examination with abnormal findings Abnormal liver function Vitamin D deficiency Osteoporosis Dyslipidemia (high LDL; low HDL) Essential hypertension Thrombocytopenia Leukopenia Hypersplenism Gallstones Surgical menopause Breast cancer screening by mammogram Surgical History H/O wrist surgery History of hysterectomy Family History Father Parkinsons Mother HTN (hypertension) Pacemaker H/O bladder problems Heart problem Maternal Grandmother No problems noted. Maternal Grandfather Diabetes mellitus Paternal Grandfather History of heart attack CVD (cardiovascular disease) Paternal Grandmother Unknown family medical history Maternal Aunt Smoker Lung cancer Maternal Uncle Diabetes mellitus Sister No problems noted. Social History Household Members: Spouse Housing: House Are you a primary pediatric care coordinator to a significant other at home: No Do you presently have visiting nurse or other home services: No Alcohol intake: former Patient Tobacco Use Status: Former Tobacco user Cigarettes Per Day: 1 Years Smoked: 10 e-Cigarette/Vaping Use: Never Used service: No Current occupational status: employed Cognitive needs: No Hearing needs: No Vision needs: No Review of Systems Const All systems reviewed & are unremarkable except as noted in HPI and below Physical Exam Const General: cooperative, healthy appearing and no acute distress Resp Effort & Inspection: normal respiratory effort and able to speak in complete sentences Cardio Rate: regular rate Peripheral pulses: Peripheral pulses 2+ throughout GI Palpation (GI): Soft to palpation Skin Lesions: no lesions Rashes: no rashes Extrem Other: Right shoulder: Lacking 40 degrees forward flexion. Abduction to 20 degrees. Able to reach back pocket. NVI. Assessment & Plan Assessment & Plan (1) Fracture of proximal end of right humerus: Code(s): S42.201A - Unspecified fracture of upper end of right humerus, initial encounter for closed fracture Qualifiers: Encounter type: subsequent encounter Fracture healing: with routine healing Fracture morphology: unspecified fracture morphology Fracture type: closed Qualified Code(s): S42.201D - Unspecified fracture of upper end of right humerus, subsequent encounter for fracture with routine healing Plan Ms. Ulrich is a 73-year-old right hand dominant female who presents in the office today for a follow up of a right shoulder proximal humerus fracture, which occurred on 09/10/2022 status post a slip and fall when walking in her home. While in the office today she states she is getting better and the pain is not longer constant. However, she does reports intermittent ?jabbing? pain in the right shoulder. She feels physical therapy went well. She has notice improvement in her ROM. She confirms she was taking Tylenol for the pain, but has not been taking it recently. I discussed indications for possible shoulder arthroplasty in the future should she have chronic pain. However, the patient is not at that point yet. I also discussed the role of cortisone injections in the future should she wish to move forward with them. Follow up will be PRN, or sooner if needed. X-rays of the right shoulder which were obtained while in the office today and were reviewed by me, Rimma Lerma PA-C, revealed healed proximal humerus fracture. Orders: Orders XR shoulder RT min 2V Today M25.519 - Pain in unspecified shoulder Patient Instructions: Scribed for Rimma Lerma PA-C by Lidia Hall medical associate, on 08/01/2023 at 11:34 am, EST. Coding Level of Care Code Est Pt Level 3 (47869) Diagnoses Closed fracture of proximal end of right humerus with routine healing, unspecified fracture morphology, subsequent encounter S42.201D Encounter type: subsequent encounter Fracture healing: with routine healing Fracture morphology: unspecified fracture morphology Fracture type: closed
== END 2023-08-01 11:44 | disposition home or self-care (01) ==
PROVIDERS: PCP Internal Medicine; Visit Provider Physician Assistant
DX: S42.201D Unspecified fracture of upper end of right humerus, subsequent encounter for fracture with routine healing (principal)
CPT/HCPCS: 99213

== ENCOUNTER 2023-08-26 11:24 | Outpatient (AMB) | payer MEDICARE, SELFPAY ==
[2023-08-26 11:51] VITALS: BP 130/74; PULSE 74; O2SAT 96; BMI 29.9
--- NOTE | 2023-08-26 11:51 | MHC.PC.OV ---
Vital Signs 08/26/23 11:51 Height 4 ft 10 in Weight 143 lb 2 oz BMI 29.9 BP 130/74 Blood Pressure Location Lt brachial Position Sitting Pulse 74 Pulse Source Pulse Oximeter Pulse Oximetry (%) 96 Oxygen Delivery Method Room Air Intake Visit Reasons: 6m follow up, htn Intake Note: pt is here to follow up on lab results and HTN Allergies latex Adverse Reaction (Verified 11/19/23 02:41) rash Medication List - Last Reconciled 08/26/23 by Diane Stockton MD bisacodyl (Dulcolax (bisacodyl)) 20 mg (4 x 5 mg) PO ONCE 1 day calcium citrate 1,000 mg PO DAILY labetalol 200 mg PO BID multivitamin 1 tab PO DAILY polyethylene glycol 3350 (Miralax) 238 grams PO ONCE 1 day vitamin B complex (B Complex-Vitamin B12 tablet) 1 tab PO DAILY Tobacco use date assessed: 08/26/23 Fall risk assessment: No Falls in past year Last assessed Fall Risk: 08/26/23 Dental Screening Dental Screen Date: 08/26/23 Did you have a dental visit in the last 12 months?: Yes Did you have a dental problem in the last 6 months where you did not have access to dental care?: No Was dental information given to patient?: Patient has dentist HPI 6m follow up, htn HPI Details 73-year-old lady with chronic thrombocytopenia, abnormal liver function test, currently being followed by GI and Hematology with negative hematologic workup except for hypersplenism, here today for follow-up on her hypertension. Currently taking labetalol 200 mg 1 tablet twice a day. Blood pressure has been stable controlled on present treatment. She has been feeling well, with no complaints of any chest pain, no headache, no lightheadedness, or palpitations. Recent fasting labs showed normal electrolytes and renal function and fasting glucose with persistent elevation in her liver enzymes and bilirubin level. [facility] Medical History (Updated 11/19/23 @ 03:02 by Diane Stockton MD) Depression Fracture of proximal end of right humerus Abnormal liver function Vitamin D deficiency Osteoporosis Dyslipidemia (high LDL; low HDL) Essential hypertension Thrombocytopenia Leukopenia Hypersplenism Gallstones Surgical menopause Surgical History History of esophagogastroduodenoscopy (EGD) H/O colonoscopy History of bone marrow biopsy H/O wrist surgery History of hysterectomy Family History Father Parkinsons Mother HTN (hypertension) Pacemaker H/O bladder problems Heart problem Maternal Grandmother No problems noted. Maternal Grandfather Diabetes mellitus Paternal Grandfather History of heart attack CVD (cardiovascular disease) Paternal Grandmother Unknown family medical history Maternal Aunt Smoker Lung cancer Maternal Uncle Diabetes mellitus Sister No problems noted. Social History Household Members: Spouse Housing: House Are you a primary customer care assistant to a significant other at home: No Do you presently have visiting nurse or other home services: No Alcohol intake: former Patient Tobacco Use Status: Former Tobacco user Quit Date: 40 years Cigarettes Per Day: 1 Years Smoked: 10 e-Cigarette/Vaping Use: Never Used service: No Current occupational status: employed Cognitive needs: No Hearing needs: No Vision needs: No Questionnaire Thrive Questionnaire Date Thrive assessed: 12/07/22 EMANI-7 AMB Questionnaire EMANI-7 Date EMANI - 7 assessed: 12/07/22 Source: Developed by Drs. Cristian Thomas, Beverly Abarca, Han Cabrera and colleagues, with an educational noreen from [employer]. Review of Systems Const Denies headache(s) Eyes Denies change in vision ENT Denies headache(s) Card Denies chest pain, Denies irregular heart rhythm and Denies dyspnea Resp Denies cough and Denies dyspnea GI Denies abdominal pain, Denies change in bowel habits, Denies diarrhea and Denies nausea Reports no additional complaints Musc Reports no additional complaints Skin/Breast Denies rash, Denies unusual bruising and Denies jaundice Neuro Denies headache(s) Endo Reports no additional complaints Jg/Lymph Denies easy bleeding and Denies easy bruising Aller/Immun Reports no additional complaints Physical exam (Primary Care) Vital Signs: Last Vital Signs Pulse 74 08/26/23 11:51 BP 130/74 08/26/23 11:51 Pulse Ox 96 08/26/23 11:51 Oxygen Delivery Method Room Air 08/26/23 11:51 BMI result Body Mass Index 29.9 Tobacco/Smoking Status: Tobacco use Status Tobacco use date assessed 08/26/23 08/26/23 12:00 Patient Tobacco Use Status Former Tobacco user 08/26/23 11:51 e-Cigarette/Vaping Use Never Used 08/26/23 11:51 Thrive Assessment: Date of Thrive Assessment Date Thrive assessed 12/07/22 08/26/23 11:51 Const Other: Alert oriented x3, no acute cardiorespiratory distress noted, ambulatory with normal gait HENMT Face and sinus: Yes face symmetric Mouth: Normal oral and palatal mucosa present, oropharynx normal and moist mucous membranes Eyes General: appearance normal, both eyes and all related structures Neck Neck: Yes full ROM, Yes no lymphadenopathy and Yes supple Resp Effort & Inspection: normal respiratory effort and able to speak in complete sentences Auscultation: clear to auscultation bilaterally Cardio Other: S1-S2 present regular rate and rhythm GI Palpation (GI): Soft to palpation, nontender and no guarding Auscultation: normal bowel sounds Skin General skin exam: no rashes or lesions noted Neuro General: gait normal, tone normal, moves all extremities, Normal light touch and pain sensation, no focal motor deficits and CN's II-XI intact bilaterally Extrem General: Yes full ROM, Yes no joint enlargement, Yes no pedal edema and Yes normal gait Results Reviewed Results Reviewed: ENTERED: 07/19/23-1333 [facility] DR: Diane Stockton MD ORDERED: CMP Test Result Flag Reference Site Sodium 142 135-145 mmol/L Potassium 3.9 3.3-5.1 mmol/L CL 111 H 96-108 mmol/L CO2 25 22-29 mmol/L Gap 10 L 12-20 BUN 16 9-16 mg/dL Creat 0.78 0.5-1.4 mg/dL Estimated CrCl 56.8 Provided height and weight: 147.32 cm, 76.6 kg. eGFR (calculated from the MDRD study equation) and eCrCl (calculated from the Cockcroft-Gault equation) are based on different parameters and may not yield comparable results. If eCrCl result is absurd, please check patient's height/weight. EGFR > 60 NOTE: For -[place] individuals, multiply the result by 1.210. Chronic Kidney Disease: Estimated GFR < 60 mL/min/1.73m2 Severe Kidney Disease: Estimated GFR < 15 mL/min/1.73m2 Glucose, Random 74 60-115 mg/dL CA 9.8 8.4-10.2 mg/dL Total Bili 1.4 H 0.0-1.0 mg/dL AST (GOT) 54 H 5-31 U/L ALT (GPT) 33 H 0-31 U/L Protein, Total 6.9 6.5-8.0 g/dL Alb 3.3 L 3.5-5.0 g/dL Alk Phos 128 H 39-117 U/L Assessment and Plan Assessment & Plan (1) Essential hypertension: Code(s): I10 - Essential (primary) hypertension Plan: Blood pressure at goal of less than 130/80. Continue with current medication. Reinforced importance of following a low sodium diet, getting regular exercise, and lowering stress levels. Coding Level of Care Code Est Pt Level 3 (83598) Diagnoses Essential hypertension I10
== END 2023-08-26 12:40 | disposition home or self-care (01) ==
PROVIDERS: Visit Provider Internal Medicine
DX: I10 Essential (primary) hypertension (principal); D69.6 Thrombocytopenia, unspecified
CPT/HCPCS: 99213

== ENCOUNTER 2023-09-20 11:15 | Outpatient (REF) | payer MEDICARE, SELFPAY ==
[2023-09-20 12:05] LABS: Basophils Percent Auto 0.5 % (0-2); Eosinophils Absolute Auto 0.1 X10*3/uL (0.0-0.4); Eosinophils Percent Auto 6.1 % (0-4); Hematocrit 34.9 % (37.0-47.0); Hemoglobin 11.4 g/dl (12.0-16.0); Lymphocytes Absolute Auto 0.5 X10*3/uL (1.2-4.9); MANUAL DIFF FLAG SCAN; Mean Corpuscular HGB Conc 32.7 g/dl (31.0-35.0); Mean Corpuscular Hemoglobin 32.6 pg (27.0-33.0); Mean Corpuscular Volume 99.7 fL (80.0-98.0); Monocytes Absolute Auto 0.3 X10*3/uL (0.1-1.2); Monocytes Percent Auto 14.3 % (2-11); Neutrophils Percent Auto 53.1 % (45-73); Red Cell Distribution Width 14.8 % (11.0-16.0); SCAN SMEAR FLAG 1
[2023-09-20 12:15] LABS: Platelet Count 20 X10*3/uL (160-400)
[2023-09-20 12:29] LABS: SLIDE REVIEW VERIFIED
== END 2023-09-20 11:16 | disposition home or self-care (01) ==
LOC: HO.LAB 11:15
PROVIDERS: PCP Internal Medicine; Visit Provider Internal Medicine Gastroenterology
DX: D69.6 Thrombocytopenia, unspecified (principal); D72.819 Decreased white blood cell count, unspecified
CPT/HCPCS: 36415; 85025

== ENCOUNTER 2023-09-21 09:13 | Outpatient (REF) | payer MEDICARE, SELFPAY | END 2023-09-21 09:14 | disposition home or self-care (01) | LOC: HO.LAB 09:13 | PROVIDERS: Visit Provider Internal Medicine Gastroenterology | DX: Z13.89 Encounter for screening for other disorder (principal) ==

== ENCOUNTER 2023-09-24 06:14 | Day surgery (SDC) | payer MEDICARE, SELFPAY ==
[2023-09-19 10:48] VITALS: BMI 29.9
[2023-09-24 06:48] VITALS: BMI 29.6
[2023-09-24 07:05] VITALS: BP 131/56; PULSE 71; RESP 16; TEMP 36.7; O2SAT 97
[2023-09-24] MEDS: Lactated Ringers 1,000 ML 80 ML IVCONT (07:10)
[2023-09-24 08:13] VITALS: BP 153/63; PULSE 73; RESP 16; TEMP 36.7; O2SAT 97
[2023-09-24 08:26] VITALS: BP 158/62; PULSE 76; RESP 16; TEMP 36.7; O2SAT 97
--- NOTE | 2023-09-24 08:29 | P.HPSUR_ITS ---
Pre-Procedural Eval Section A Date of Service: 09/24/23 Section B Chief Complaint: pos cologuard Relevant Family History (Specify if Yes): No Relevant Social History: None Present Medications: see Short Stay Collaborative assessment Medical History: Significant History (Depression Fracture of proximal end of right humerus Annual visit for general adult medical examination with abnormal findings Abnormal liver function Vitamin D deficiency Osteoporosis Dyslipidemia (high LDL; low HDL) Essential hypertension Thrombocytopenia Leukopenia Hypersplenism Gallstones Surgic) History of Previous Operations: Relevant previous surgery/procedure and date(s) (H/O wrist surgery History of hysterectomy) Allergies: Allergies Allergy/AdvReac Type Severity Reaction Status Date / Time latex AdvReac rash Verified 09/24/23 07:04 Review of Systems Sugical H&P ROS: Negative: Constitution, Cardiovascular, Respiratory, Neurological, Psychiatric, Hem-Onc, Allergic/Immunologic, Gastrointestinal, Genitourinary, Musculoskeletal, Integumentary, Endocrine and Eyes/Ears/Nose/T hroat Exam Surgical H&P Exam: Normal: HEENT, Normal: Heart, Normal: Lungs, Normal: Extremities, Normal: Abdomen, Normal: Skin and Normal: Neurological Plan Diagnosis/Plan: Unchanged I have reviewed the history and physical and performed a pertinent physical examination on my patient. No changes have occurred unless specified. Time Spent With Patient Time: Total time managing care of this patient today ____ minutes.
--- NOTE | 2023-09-24 08:38 | HO.ANESPROP2 ---
HPI - Anesthesia Eval Consult details Narrative: 73-year-old female here for colonoscopy and endoscopy Known case of thrombocytopenia, followed by hematology. Pre platelet count is 24. Patient is receiving 2 units of platelets prior to her procedure. [facility] Active Problems Active Problems: All Active Problems (Updated 08/01/23 @ 11:41 by Lidia Hall) Depression (Acute) Abnormal liver function (Acute) Osteoporosis (Acute) Dyslipidemia (high LDL; low HDL) (Acute) Essential hypertension (Acute) Thrombocytopenia (Acute) Leukopenia (Acute) Hypersplenism (Acute) Surgical menopause (Acute) Past Medical History Medical History Depression Fracture of proximal end of right humerus Annual visit for general adult medical examination with abnormal findings Abnormal liver function Vitamin D deficiency Osteoporosis Dyslipidemia (high LDL; low HDL) Essential hypertension Thrombocytopenia Leukopenia Hypersplenism Gallstones Surgical menopause Breast cancer screening by mammogram Family History Family History Father Parkinsons Mother HTN (hypertension) Pacemaker H/O bladder problems Heart problem Maternal Grandmother No problems noted. Maternal Grandfather Diabetes mellitus Paternal Grandfather History of heart attack CVD (cardiovascular disease) Paternal Grandmother Unknown family medical history Maternal Aunt Smoker Lung cancer Maternal Uncle Diabetes mellitus Sister No problems noted. Family history of problems with anesthesia: No Surgical History Surgical History History of bone marrow biopsy H/O wrist surgery History of hysterectomy History of Problems with Anesthesia: No Social History Social History Household Members: Spouse Housing: House Are you a primary patient care to a significant other at home: No Do you presently have visiting nurse or other home services: No Alcohol intake: former Patient Tobacco Use Status: Former Tobacco user Quit Date: 40 years Cigarettes Per Day: 1 Years Smoked: 10 e-Cigarette/Vaping Use: Never Used Use of substances other than those prescribed or required for medical reasons: No Are you DNR?: No Advance Directives: No Advance Directives Information Provided: Yes service: No Current occupational status: employed Cognitive needs: No Hearing needs: No Vision needs: No Meds Allergies Allergy/AdvReac Type Severity Reaction Status Date / Time latex AdvReac rash Verified 09/24/23 07:04 Active Medications: Current Medications Lactated Ringer's (Lr) 1,000 mls @ 80 mls/hr IVCONT .[id number] RENEA Last Admin: 09/24/23 07:10 Dose: 80 mls/hr Ondansetron HCl (Ondansetron Hcl 4 Mg/2 Ml Vial) 4 mg IVPUSH ONCE PRN PRN Reason: Nausea and Vomiting Home Medications Medication Instructions Recorded Confirmed Last Taken Type multivitamin 1 tab PO DAILY 11/22/20 09/19/23 Unknown History calcium citrate 500 mg (2,376 mg) 1,000 mg PO DAILY 04/13/21 09/19/23 Unknown History effervescent tablet vitamin B complex (B 1 tab PO DAILY 04/24/21 09/19/23 Unknown History Complex-Vitamin B12 tablet) Exam Height,Weight and Vital Signs: Height 4 ft 10 in Weight 141 lb 8 oz Last Vital Signs Temp 98.1 F 09/24/23 08:26 Pulse 76 09/24/23 08:26 Resp 16 09/24/23 08:26 BP 158/62 H 09/24/23 08:26 Pulse Ox 97 09/24/23 08:26 O2 Del Method Room Air 09/24/23 08:26 Pertinent Lab Results Pertinent Lab Results: Laboratory Tests 09/21/23 09:28 Blood Type O Positive Antibody Screen NEGATIVE Airway Mallampati Class: II TM Dist: >3cm Neck ROM: Full Loose/Missing/Broken Teeth: Yes (Poor dentition) Assessment and Plan Assessment Anesthesia Assessment: Anesthesia Plan Discussed and Chart Reviewed Final Anesthetic Review Family History of Problems with Anesthesia: No History of Problems with Anesthesia: No NPO: Yes ASA Class: III Final Preanesthetic Review: No Changes in Pt Med Stat, Meds/Allgs Chart Reviewed, Consent Obtained/Reviewed and Anes Risks/Benef Reviewed Patient Risk: Intermediate Procedure Risk: Low Anesthetic Plan Anesthetic Plan: MAC: Disposition: Standard PACU
--- NOTE | 2023-09-24 08:39 | PC.NURSE ---
Pt received 1 full unit of platelets prior to having procedure. Second unit infusing when pt left for procedure.
[2023-09-24 08:42] VITALS: BP 154/60; PULSE 74; RESP 16; TEMP 36.7; O2SAT 98
--- NOTE | 2023-09-24 09:26 | P.OP_ITS ---
Operative Note Operative Note Date of Service: 09/24/23 Narrative: Operative Information Procedure Description: EGD, Colonoscopy Indication: pos cologuard, portal HTN Anesthesia: MAC FLEXIBLE TRANSORAL UPPER GASTROINTESTINAL ENDOSCOPY AND COLONOSCOPY PROCEDURE NOTE UPPER ENDOSCOPY Consent: Indications for the procedure and potential complications of bleeding, perforation, reaction to medications and missed diagnosis were discussed with the patient and informed consent was obtained. Instrument: Olympus GIF H 190 J mid size upper endoscope Monitoring: Vital signs and clinical assessment, continuous EKG monitoring, Pulse oximetry, Carbon Dioxide monitoring and blood pressure monitoring were done throughout the procedure. Procedure: The patient was placed in the left lateral decubitis position and pre-procedure medications were administered and a bite block was placed. The endoscope was inserted into the mouth and advanced under direct vision to the third part of duodenum. A careful inspection was made as the upper endoscope was withdrawn including a retroflexed examination of the proximal stomach; Findings and interventions are described below. Findings: Larynx:normal Esophagus: GE junction at 38 cm, diaphragm hiatus at 38 cm, small varices, grade 1-2, collapsed with insufflation of air, no red hollis seen Stomach: Erythema and slight erosion mid body of stomach, possible pill gas tritis. Biopsies were obtained. Grade 2 flap valve on retroflexed examination of the cardia. Duodenum: Normal bulb and descending duodenum, Intervention: Biopsies as noted above COLONOSCOPY Instrument: Olympus variable stiffness pediatric scope 190L Colonoscopy Monitoring: Vital signs and clinical assessment, continuous EKG monitoring, Pulse oximetry, Carbon Dioxide monitoring and blood pressure monitoring were done throughout the procedure. Colon withdrawal time was 14 minutes. Procedure: The patient was placed in the left lateral decubitis position and pre-procedure medications were administered. After a digital rectal examination of the ano-rectum, the video colonoscope was inserted into the rectum and advanced through the colon to the cecum/TI. The colonoscope was slowly withdrawn in a retrograde panoramic fashion and the colon mucosa was carefully examined including a retroflexed view of the rectum. Findings and interventions are described below. Procedure Difficulty: moderate Findings: Terminal Ileum-normal Cecum:normal Ascending Colon: normal Transverse Colon -normal Descending Colon:normal Sigmoid Colon: normal Rectum: Retroflexion with small internal hemorrhoids, grade I--at rectosigmoid junction 14-16 mm pedunculated polyp noted, injected with 2 ml of epinephrine then the stalk was clipped with ulatra clip and the polyp removed with hot snare. Another clip was placed adjacent to the first for prevention of post polypectomy bleeding Anorectum - normal Colon preparation: [place] Bowel Preparation Scale Right colon; 2 Transverse colon: 2 Left colon; 2 (0 = Unprepared colon segment with mucosa not seen due to solid stool that cannot be cleared. 1 = Portion of mucosa of the colon segment seen, but other areas of the colon segment not well seen due to staining, residual stool and/or opaque liquid. 2 = Minor amount of residual staining, small fragments of stool and/or opaque liquid, but mucosa of colon segment seen well. 3 = Entire mucosa of colon segment seen well with no residual staining, small fragments of stool or opaque liquid) Impression and Post Procedure Diagnosis: Endoscopy Findings: pill gastritis small varices Colonoscopy Findings: polyp internal hemorrhoids Plan: Await Pathology results Repeat Colonoscopy in 3-4 years if health allows or earlier if clinically indica michael High fiber diet leaflet avoid straining at stool, epsom salts and sitz bath, anusol supps or cream repeat EGD in 1-2 yrs or earlier if clinically indicated -drink plenty of fluids with meds Above findings were reviewed with the patient and relevant handouts were provided if indicated.
[2023-09-24 09:32] VITALS: BP 98/50; PULSE 87; RESP 16; TEMP 36.6; O2SAT 97
[2023-09-24 09:47] VITALS: BP 116/50; PULSE 88; RESP 20; TEMP 36.8; O2SAT 96
== END 2023-09-24 10:29 | disposition home or self-care (01) ==
PROVIDERS: PCP Internal Medicine; Visit Provider Internal Medicine Gastroenterology
PROC: (CPT 45385; principal; 2023-09-24 09:10)
DX: R19.5 Other fecal abnormalities (principal); D12.7 Benign neoplasm of rectosigmoid junction; K64.0 First degree hemorrhoids; D69.6 Thrombocytopenia, unspecified; K22.4 Dyskinesia of esophagus; K76.6 Portal hypertension; I85.00 Esophageal varices without bleeding; K29.60 Other gastritis without bleeding; K44.9 Diaphragmatic hernia without obstruction or gangrene; I10 Essential (primary) hypertension; E55.9 Vitamin D deficiency, unspecified; E78.5 Hyperlipidemia, unspecified; D72.819 Decreased white blood cell count, unspecified; D73.1 Hypersplenism; F32.A Depression, unspecified; Z79.899 Other long term (current) drug therapy; Z91.040 Latex allergy status; Z87.891 Personal history of nicotine dependence
CPT/HCPCS: 45385; 45381; 43239; 86850; 86900; 86901; 88305; 88342; J0171; J2704; P9073

== ENCOUNTER → 2023-09-24 06:14 | Outpatient (BNV) | payer MEDICARE, SELFPAY | PROVIDERS: PCP Internal Medicine; Visit Provider Internal Medicine Gastroenterology | DX: Z12.11 Encounter for screening for malignant neoplasm of colon (principal); R19.5 Other fecal abnormalities; D12.7 Benign neoplasm of rectosigmoid junction; K64.0 First degree hemorrhoids; K76.6 Portal hypertension; K29.70 Gastritis, unspecified, without bleeding; I85.00 Esophageal varices without bleeding | CPT/HCPCS: 43239; 45381; 45385 ==

== ENCOUNTER 2023-11-11 10:23 | Outpatient (AMB) | payer MEDICARE, SELFPAY ==
[2023-11-11 10:39] VITALS: BP 150/66; PULSE 67; BMI 29.9
--- NOTE | 2023-11-11 10:39 | A.OFFVIS_ITS ---
Intake Vital Signs 11/11/23 10:39 Height 4 ft 10 in Weight 143 lb 4.807 oz BMI 29.9 BP 150/66 H Blood Pressure Location Lt brachial Position Sitting Pulse 67 Intake Visit Reasons: 4 month follow up Intake Note: Arielle presents in the office today in follow up s/p EGD and colonoscopy. CC: Patient states she has been doing well and denies having any GI symptoms today. Investment Sales Assistant Required: No Accompanied by: Self / Same As Patient Allergies latex Adverse Reaction (Verified 11/11/23 10:47) rash HPI 4 month follow up HPI Details 73 yr old f w HTN here for f/u due to ab n LFT RECAP: she has had chronic abn LFT and low plts since at least 2013 with coarse liver texture saw hematology and had extensive work up, no hematology cause found but splenomegaly noted with coarse liver she fell and fractured her right humerus, was undergoing therapy LFT 09/2022 bili 2.5 AST 49 alk phos: 126 INR: 1.3 EGD/colo: 09/21: Endoscopy Findings: pill gastritis small varices Colonoscopy Findings: polyp internal hemorrhoids PAth: A. Colon, rectosigmoid polyp: Tubulovillous adenoma, completely excised; negative for high-grade dysplasia and carcinoma. B. Stomach, biopsy: Gastric antral and body mucosa with minimal chronic inactive gastritis; negative for H pylori, intestinal metaplasia and dysplasia. INTERIM: She has been doing well no major issues or complaints no night sweats no fevers no sore throats no nose bleeds she had a pos cologuard, not seen any overt GI bleeding she is still working hard on her shoulder, slowly recovering appetite is good EXAM: GENERAL: The patient is well developed and nontoxic. VITAL SIGNS:see workflow HEENT: Nonicteric sclerae, PERRLA, EOMI. Oropharynx clear. Moist mucous membranes. Conjunctivae appear well perfused. No thyroid mass. CHEST: Chest wall is nontender. HEART: Regular rate and rhythm without murmurs. LUNGS: Clear to auscultation bilaterally. ABDOMEN: Soft, positive bowel sounds, nontender, no organomegaly.no flank tenderness SKIN: No rash, no excessive bruising, petechiae, or purpura. NEUROLOGIC: Cranial nerves II-XII intact without motor/sensory deficit. psych: nml affect MS: better ROM now A/P: 1/ Abn LFT, longstanding incl low plts a nd WCC (strangely RBC are nml), could be cirrhosis and hypersplenism from LOONEY, declines liver bx 2/ Tubulovillous colon polyp PLAN: 1/ US, still not had this, will reorder again 2/rept EGD in 1-2 yr, colonoscopy in 3 y rs 3/ still drinking black coffee which can be hepto protective and MV 4/ following with hematology as well due to macrocytosis PFSH Medical History Depression Fracture of proximal end of right humerus Annual visit for general adult medical examination with abnormal findings Abnormal liver function Vitamin D deficiency Osteoporosis Dyslipidemia (high LDL; low HDL) Essential hypertension Thrombocytopenia Leukopenia Hypersplenism Gallstones Surgical menopause Breast cancer screening by mammogram Surgical History History of esophagogastroduodenoscopy (EGD) H/O colonoscopy History of bone marrow biopsy H/O wrist surgery History of hysterectomy Family History Father Parkinsons Mother HTN (hypertension) Pacemaker H/O bladder problems Heart problem Maternal Grandmother No problems noted. Maternal Grandfather Diabetes mellitus Paternal Grandfather History of heart attack CVD (cardiovascular disease) Paternal Grandmother Unknown family medical history Maternal Aunt Smoker Lung cancer Maternal Uncle Diabetes mellitus Sister No problems noted. Social History Household Members: Spouse Housing: House Are you a primary career portals teacher to a significant other at home: No Do you presently have visiting nurse or other home services: No Alcohol intake: former Patient Tobacco Use Status: Former Tobacco user Quit Date: 40 years Cigarettes Per Day: 1 Years Smoked: 10 e-Cigarette/Vaping Use: Never Used service: No Current occupational status: employed Cognitive needs: No Hearing needs: No Vision needs: No Physical Exam Vital Signs: Last Vital Signs Pulse 67 11/11/23 10:39 BP 150/66 H 11/11/23 10:39 BMI result Body Mass Index 29.9 Assessment & Plan Assessment & Plan (1) Abnormal liver function: Code(s): R94.5 - Abnormal results of liver function studies Plan: A/P: 1/ Abn LFT, longstanding incl low plts and WCC (strangely RBC are nml), could be cirrhosis and hypersplenism from [place]Y, declines liver bx 2/ Tubulovillous colon polyp PLAN: 1/ US, still not had this, will reorder again 2/rept EGD in 1-2 yr, colonoscopy in 3 yrs 3/ still drinking black coffee which can be hepto protective and MV 4/ following with hematology as well due to macrocytosis Coding Level of Care Code Est Pt Level 3 (04959) Diagnoses Abnormal liver function R94.5
== END 2023-11-11 11:29 | disposition home or self-care (01) ==
PROVIDERS: PCP Internal Medicine; Visit Provider Internal Medicine Gastroenterology
DX: R94.5 Abnormal results of liver function studies (principal)
CPT/HCPCS: 99213

== ENCOUNTER → 2023-11-11 10:23 | Outpatient (BNVA) | payer MEDICARE, SELFPAY | PROVIDERS: PCP Internal Medicine; Visit Provider Internal Medicine Gastroenterology | DX: R94.5 Abnormal results of liver function studies (principal) | CPT/HCPCS: 99212 ==

== ENCOUNTER 2023-11-22 07:42 | Outpatient (REF) | payer MEDICARE, SELFPAY ==
--- NOTE | ~2023-11-22 | US_ITS ---
EXAMINATION: US COMPLETE ABDOMEN WITH LIVER ELASTOGRAPHY CLINICAL INFORMATION: COMPARISON: None available. TECHNIQUE: Real-time imaging of the abdominal viscera. Noninvasive ultrasound liver fibrosis assessment is performed using Linda ElastPQ point quantification shear wave elastography (2D-SWE) with a C5-2 MHz transducer. Multiple elastography samples are obtained. FINDINGS: PANCREAS: Head and body appear unremarkable. Tail not visualized. ABDOMINAL AORTA: The proximal, middle, and distal aortic segments are normal in caliber. INFERIOR VENA CAVA: Visualized portions are normal. LIVER: The liver appears heterogeneous in echotexture and may be nodular in contour. There is a 1.3 x 1.1 x 0.7 cm, homogeneously echogenic left hepatic lesion. Question mild biliary ductal dilation. The right lobe measures 14.1 cm in length. The left lobe measures 9.5 cm in length. Portal flow is towards the liver (hepatopetal). Shear wave liver elastography median stiffness is 1.96 m/s (reference: normal median stiffness is 1.3 m/s or less). IQR/median stiffness to assess sampling precision is 0.17 (reference: good quality data set is IQR/median stiffness of 0.15 or less). GALLBLADDER: 1.8 cm or less gallstones. Question mild diffuse thickening of the wall the gallbladder, measuring up to 0.4 cm in thickness, nonspecific. Question trace pericholecystic fluid, also nonspecific. COMMON BILE DUCT: Measures 0.7 cm in diameter, upper normal for patient of this age. RIGHT KIDNEY: No hydronephrosis. 1.9 cm or less benign right simple renal cysts for which no further dedicated follow up imaging is indicated. No renal calculi or suspicious focal parenchymal lesion identified. The kidney measures 9.9 cm in maximum dimension. LEFT KIDNEY: No hydronephrosis. Suspect four, subcentimeter, nonobstructing left renal collecting system stones. Two, subcentimeter, benign left simple renal cysts for which no further dedicated follow up imaging is indicated. The kidney measures 10.5 cm in maximum dimension. SPLEEN: The spleen measures 19.3 cm in maximum dimension. OTHER: An upper normal lymph node appears present adjacent to the pancreatic head, which appears to measure 0.97 cm in short axis and demonstrating normal fatty hilum. FREE FLUID: None. US/US abdomen comp w elastography IMPRESSION: Heterogeneous hepatic echotexture and nodular hepatic contour, suggesting hepatic cirrhosis. Liver elastography: Although measurements are suggestive of compensated advanced chronic liver disease, there is statistical variability of the sampling which decreases accuracy. Splenomegaly, suggesting portal hypertension. Cholelithiasis. Nonspecific mild gallbladder wall thickening and trace pericholecystic fluid. Subcentimeter, nonobstructing left renal collecting system stones. REFERENCE: Society of Radiologists in Ultrasound Liver Stiffness Thresholds (2020): LIVER STIFFNESS THRESHOLDS: *Liver Stiffness equal or less than 1.3 m/s: High probability of being normal. *Liver Stiffness less than 1.7 m/s: In the absence of other known clinical signs, rules out compensated advanced chronic liver disease. *Liver Stiffness 1.7-2.1 m/s: Suggestive of compensated advanced chronic liver disease but need further test for confirmation. *Liver Stiffness over 2.1 m/s: Rules in compensated advanced chronic liver disease. *Liver Stiffness over 2.4 m/s: Suggestive of clinically significant portal hypertension. QUALITY OF DATA SET: *IQR/Median value equal or less than 0.15 implies a quality data set. *IQR/Median value over 0.15 implies a poor quality data set. SIGNIFICANT CHANGE FROM PRIOR EXAM: Significant change if liver stiffness measurement is 10% or greater from prior exam. OTHER CONSIDERATIONS: The stage of liver fibrosis may be overestimated in the setting of acute hepatitis, liver inflammation, elevated liver function tests, hepatic vascular congestion, obstructive cholestasis, non-fasting state, and infiltrative diseases such as amyloidosis and lymphoma. In some patients with NAFLD, the liver stiffness thresholds for compensated advanced chronic liver disease may be lower. In causes other than viral hepatitis and NAFLD, liver stiffness thresholds are not well established.
== END 2023-11-22 07:43 | disposition home or self-care (01) ==
LOC: HO.US 07:42
PROVIDERS: PCP Internal Medicine; Visit Provider Internal Medicine Gastroenterology
DX: R94.5 Abnormal results of liver function studies (principal)
CPT/HCPCS: 76700; 76981

== ENCOUNTER 2023-12-20 08:25 | Outpatient (REF) | payer MEDICARE, SELFPAY | END 2023-12-20 08:26 | disposition home or self-care (01) | LOC: HO.LAB 08:25 | PROVIDERS: Visit Provider Internal Medicine Gastroenterology | DX: Z13.89 Encounter for screening for other disorder (principal) ==

== ENCOUNTER 2024-01-15 09:03 | Outpatient (REF) | payer MEDICARE, SELFPAY ==
--- NOTE | ~2024-01-15 | CT_ITS ---
EXAMINATION: CT ABDOMEN WITHOUT AND WITH CONTRAST CLINICAL INFORMATION: Abnormal liver function tests. COMPARISON: Abdominal ultrasound dated 11/22/2023. TECHNIQUE: Contiguous axial thin section helical images of the abdomen were performed before and after the administration of oral contrast and 85 mL of Omnipaque 350 intravenous contrast. The data set was reformatted in the coronal and sagittal planes and reviewed on an independent workstation. This CT examination was performed using dose optimization techniques as appropriate, variously including the following: *Automated exposure control *Adjustment of mA and/or kV according to patient size (this includes techniques or standardized protocols for targeted exams where dose is matched to indication/reason for exam; i.e. extremities or head) *Use of iterative reconstruction technique DLP: 1024.00 mGy-cm FINDINGS: LUNG BASES: There is mild bibasilar scar/subsegmental atelectasis. LIVER, GALLBLADDER, AND BILIARY TREE: The liver is somewhat diminutive, shows a lobular contour and is generally diminished in attenuation. No focal hepatic lesion or biliary ductal dilatation is present. There are gallstones, and there is pericholecystic fluid. PANCREAS: Unremarkable. SPLEEN: There is splenomegaly, with a longitudinal span in the coronal plane of 15.5 cm (7:46). ADRENAL GLANDS: Unremarkable. KIDNEYS AND URETERS: The kidneys are normal in size, shape, and attenuation. There are multiple low-attenuation bilateral renal cysts, some too small to fully characterize with CT. No perinephric stranding. At the lower pole of the right kidney (3:29), a 2 mm nonobstructing calculus is seen. At the interpolar left kidney (3:32), 5 mm and 7 mm nonobstructing calculi are seen. At the lower pole of the left kidney (3:36), there are 5 mm and 4 mm calculi, together with a 1.4 cm staghorn calculus. No proximal ureteric calculus is seen, and there is no obstructive uropathy. GASTROINTESTINAL TRACT: The small and large bowel are unremarkable. The appendix is unremarkable. ABDOMINAL WALL: There is a tiny fat-containing umbilical hernia. LYMPH NODES: There are multiple shotty, nonpathologically enlarged aortocaval lymph nodes. There are enlarged periportal lymph nodes measuring 2.8 x 1.2 cm and 1.5 x 1.1 cm (5:30 and 32). There is a mildly prominent, nonpathologically enlarged left para-aortic lymph node, with short axis diameter of 9 mm (5:39). VASCULAR: The portal vein is prominent, with a caliber of 1.7 cm (5:32). There is no abdominal aortic aneurysm or dissection. There are moderate aortoiliac atherosclerotic calcifications. OSSEOUS STRUCTURES: Unremarkable. CT/CT abdomen wo/w IV con IMPRESSION: 1. The liver shows a cirrhotic appearance. There are findings consistent with portal hypertension, including splenomegaly and a prominent portal vein. No focal hepatic mass or intrahepatic biliary ductal dilatation is seen. 2. There is cholelithiasis. There is pericholecystic fluid, raising the possibility of acute cholecystitis. Recommend clinical correlation. This could be further evaluated with abdominal ultrasound, if clinically indicated. 3. There are nonobstructing bilateral renal calculi. No obstructive uropathy is noted. 4. There are enlarged periportal lymph nodes, and a borderline enlarged left paratracheal lymph node is seen. Recommend management on a clinical basis and continued attention on imaging follow-up. Fleischner guidelines were followed.
[2024-01-15] MEDS: iohexoL 350 MG/ML 100 ML INFUS..BTL IV (10:26)
== END 2024-01-15 09:04 | disposition home or self-care (01) ==
LOC: HO.CT 09:03
PROVIDERS: PCP Internal Medicine; Visit Provider Internal Medicine Gastroenterology
DX: R94.5 Abnormal results of liver function studies (principal); K76.9 Liver disease, unspecified
CPT/HCPCS: 74170; Q9967

== ENCOUNTER 2024-03-03 10:48 | Outpatient (AMB) | payer MEDICARE, SELFPAY ==
--- NOTE | 2024-03-03 11:11 | MHC.PC.OV ---
Vital Signs 03/03/24 11:13 Height 4 ft 10 in Weight 147 lb BMI 30.7 BP 112/80 Blood Pressure Location Rt brachial Position Sitting Pulse 68 Pulse Source Pulse Oximeter Pulse Oximetry (%) 96 Oxygen Delivery Method Room Air Intake Visit Reasons: PE Intake Note: pt here today for annual PE. Mammogram 02/23/23. Bone Density 03/13/23 Allergies latex Adverse Reaction (Verified 07/29/24 21:50) rash Medication List - Last Reconciled 03/03/24 by Diane Stockton MD labetalol 200 mg PO BID multivitamin 1 tab PO DAILY vitamin B complex (B Complex-Vitamin B12 tablet) 1 tab PO DAILY Tobacco use date assessed: 03/03/24 Fall risk assessment: No Falls in past year Last assessed Fall Risk: 03/03/24 Dental Screening Dental Screen Date: 03/03/24 Did you have a dental visit in the last 12 months?: Yes Did you have a dental problem in the last 6 months where you did not have access to dental care?: No Was dental information given to patient?: Patient has dentist HPI PE HPI Details 74 year-old lady with past medical history of chronic thrombocytopenia, abnormal liver function test, currently being followed by GI and Hematology with negative hematologic workup except for hypersplenism, has hypertension, here today for her physical exam. Her last mammogram was done 02/23/23, and is currently up-to-date with her. Bone Density done 03/13/23 which showed osteoporosis in lumbar spine and osteopenia left femoral neck and left femur. Previously seen by Dr. Bach , never started on any treatment, history of right proximal humeral fracture last year. Had a screening colonoscopy done by Dr. Tirado in 2022, with removal of a tubular we goes adenoma polyp, repeat again in 2025. [facility] Medical History (Updated 07/29/24 @ 23:06 by iDane Stockton MD) Depression Fracture of proximal end of right humerus Abnormal liver function Vitamin D deficiency Osteoporosis Dyslipidemia (high LDL; low HDL) Essential hypertension Thrombocytopenia Leukopenia Hypersplenism Gallstones Surgical menopause Surgical History History of esophagogastroduodenoscopy (EGD) H/O colonoscopy History of bone marrow biopsy H/O wrist surgery History of hysterectomy Family History Father Parkinsons Mother HTN (hypertension) Pacemaker H/O bladder problems Heart problem Maternal Grandmother No problems noted. Maternal Grandfather Diabetes mellitus Paternal Grandfather History of heart attack CVD (cardiovascular disease) Paternal Grandmother Unknown family medical history Maternal Aunt Smoker Lung cancer Maternal Uncle Diabetes mellitus Sister No problems noted. Social History Household Members: Spouse Housing: House Are you a primary critical care educator to a significant other at home: No Do you presently have visiting nurse or other home services: No Alcohol intake: former Patient Tobacco Use Status: Former Tobacco user Cigarettes Per Day: 1 Years Smoked: 10 e-Cigarette/Vaping Use: Never Used service: No Current occupational status: employed Current occupational exposures/hazards: No Cognitive needs: No Hearing needs: No Vision needs: No Questionnaire PHQ-9 Over the last 2 weeks, how often have you been bothered by any of the following problems? 1. Little interest or pleasure in doing things: not at all 2. Feeling down, depressed, or hopeless: not at all 3. Trouble falling or staying asleep, or sleeping too much: not at all 4. Feeling tired or having little energy: not at all 5. Poor appetite or overeating: not at all 6. Feeling bad about yourself - or that you are a failure or have let yourself or your family down: several days 7. Trouble concentrating on things, such as reading the newspaper or watching television: not at all 8. Moving or speaking so slowly that other people could have noticed. Or the opposite - being so fidgety or restless that you have been moving around a lot more than usual: not at all 9. Thoughts that you would be better off or of hurting yourself in some way: not at all Total score: 1 Depression Screening Interpretation: Negative Depression Screening Done: Yes 83719 - PHQ-9 Billing: Yes Source: Developed by Drs. Cristian Thomas, Beverly Abarca, Han Cabrera and colleagues, with an educational noreen from [employer]. Thrive Questionnaire Date Thrive assessed: 03/03/24 I am a: Patient What is your living situation today?: I have a steady place to live Within the past 12 months, did the food you bought not last and you didn't have the money to get more?: Never true Within the past 12 months, did you worry whether your food would run out before you got money to buy more?: Never true Do you have trouble paying for medicines?: No Do you have trouble getting transportation to medical appointments?: No Do you have trouble paying your heating and electricity bill?: No Do you have trouble taking care of your child, family member or friend?: No Do you have trouble with day-to-day activities such as bathing, preparing meals, shopping, managing finances, etc.?: No Are you currently unemployed and looking for a job?: No Are you interested in more education?: No Please select the resources that you would like help with: None Currently or been in a relationship where the following occur: no concerns reported THRIVE Score: 0 AUDIT C Alcohol Use Questionnaire (AUDIT-C) 1. How often do you have a drink containing alcohol?: Never Total Score: 0 Score Reviewed/Action Taken: Yes EMANI-7 AMB Questionnaire EMANI-7 Date EMANI - 7 assessed: 12/07/22 Feeling nervous, anxious, or on edge: 0 = Not at all Not being able to stop or control worryin = Several days Worrying too much about different things: 1 = Several days Trouble relaxin = Several days Being so restless that it is hard to sit still: 0 = Not at all Becoming easily annoyed or irritable: 1 = Several days Feeling afraid as if something awful might happen: 1 = Several days Total EMANI-7 score (0-4 normal; 5-9 mild; 10-14 moderate; 15-21 severe): 5 Source: Developed by Drs. Cristian Thomas, Beverly Abarca, Han Cabrera and colleagues, with an educational noreen from [employer]. EMANI-7 Assessment Billing EMANI-7 Assessment Tool: EMANI-7 Assessment 83750 Review of Systems Const Denies headache(s) Eyes Denies change in vision ENT Denies headache(s) Card Denies chest pain, Denies irregular heart rhythm and Denies dyspnea Resp Denies cough and Denies dyspnea GI Denies abdominal pain, Denies change in bowel habits, Denies diarrhea and Denies nausea Reports no additional complaints Musc Reports no additional complaints Skin/Breast Denies rash, Denies unusual bruising and Denies jaundice Neuro Denies headache(s) Psych Reports no additional complaints Endo Reports no additional complaints Jg/Lymph Denies easy bleeding and Denies easy bruising Aller/Immun Reports no additional complaints Physical exam (Primary Care) Vital Signs: Last Vital Signs Pulse 68 03/03/24 11:13 BP 112/80 03/03/24 11:13 Pulse Ox 96 03/03/24 11:13 Oxygen Delivery Method Room Air 03/03/24 11:13 BMI result Body Mass Index 30.7 Tobacco/Smoking Status: Tobacco use Status Tobacco use date assessed 03/03/24 03/03/24 11:16 Patient Tobacco Use Status Former Tobacco user 03/03/24 11:16 e-Cigarette/Vaping Use Never Used 03/03/24 11:16 PHQ-9: PHQ-9 Score PHQ-9: Total score 1 07/29/24 22:42 Depression Screening Interpretation: Negative Thrive Assessment: Date of Thrive Assessment Date Thrive assessed 03/03/24 03/03/24 11:21 Currently or been in a relationship where the following occur: no concerns reported Const Other: Alert oriented x3, no acute cardiorespiratory distress noted, ambulatory with normal gait HENMT Face and sinus: Yes face symmetric Mouth: Normal oral and palatal mucosa present, oropharynx normal and moist mucous membranes Eyes General: appearance normal, both eyes and all related structures Neck Neck: Yes full ROM, Yes no lymphadenopathy and Yes supple Chest Breast/axilla palpation: normal palpation of the breasts Resp Effort & Inspection: normal respiratory effort and able to speak in complete sentences Auscultation: clear to auscultation bilaterally Cardio Other: S1-S2 present regular rate and rhythm GI Palpation (GI): Soft to palpation, nontender and no guarding Auscultation: normal bowel sounds General: Yes no CVA tenderness Back/Spine/Pelvis Back: no CVA tenderness and No back tenderness Skin General skin exam: no rashes or lesions noted Neuro General: gait normal, tone normal, moves all extremities, Normal light touch and pain sensation, no focal motor deficits and CN's II-XI intact bilaterally Extrem General: Yes full ROM, Yes no joint enlargement, Yes no pedal edema and Yes normal gait Psych Appearance: grossly normal and well kempt Mental Status: mental status grossly normal Speech and movement: Normal speech and movement present Affect: normal affect Attitude: cooperative Thought process: Normal thought process present Results Reviewed Results Reviewed: sebastian: Arielle Samano Age/Sex: 73/F : 1950 Unit#: [id number] Attend Dr: Annalee Bansal MD Re04/06/24 Status: REG RCR Location: HO.ONC Disch: SPEC : [id number] MELVIN: 04/06/24 STATUS: COMP REQ : [id number] RECD: 04/06/[address]: Annalee Bansal MD COMP: 04/06/24 ENTERED: 04/06/[address] [facility] [address]: Diane Stockton MD ORDERED: CBC Auto Diff Test Result Flag Reference WBC 2.4 L 4.8-10.8 X10*3/uL RBC 3.67 L 4.20-5.50 X10*6/uL HGB 12.1 12.0-16.0 g/dl HCT 36.3 L 37.0-47.0 % MCV 98.9 H 80.0-98.0 fL MCH 33.0 27.0-33.0 pg MCHC 33.3 31.0-35.0 g/dl RDW 14.7 11.0-16.0 % PLT 24 L 160-400 X10*3/uL MPV 12.5 H 9.4-12.3 fL Neut Pct Auto 64.1 45-73 % ImGran Pct Auto 0.4 0.0-0.4 % Lymp Pct Auto 21.9 20-40 % [place] Pct Auto 8.3 2-11 % Eos Pct Auto 4.5 H 0-4 % Baso Pct Auto 0.8 0-2 % NRBC Pct Auto 0.0 0.0-0.2 /100WBC ANC Neut Abs # 1.6 L 2.0-8.3 x10*3/uL ImGran Abs Auto 0.01 0.00-0.03 X10*3/uL Lymph Abs Auto 0.5 L 1.2-4.9 X10*3/uL [place] Abs Auto 0.2 0.1-1.2 X10*3/uL Eos Abs Auto 0.1 0.0-0.4 X10*3/uL Baso Abs Auto 0.0 0.0-0.2 X10*3/uL NRBC Abs Auto 0.000 0.0-0.012 X10*3/uL Name: Arielle Samano Age/Sex: 73/F : 1950 Unit#: [id number] Attend Dr: Annalee Bansal MD Re04/06/24 Status: REG RCR Location: HO.ONC Disch: SPEC : [id number] MELVIN: 04/06/24 STATUS: COMP REQ : [id number] RECD: 04/06/[address]: Annalee Bansal MD COMP: 04/06/24 ENTERED: 04/06/[address]: Diane Stockton MD ORDERED: CMP Test Result Flag Reference Sodium 142 135-145 mmol/L Potassium 4.2 3.3-5.1 mmol/L CL 112 H 96-108 mmol/L CO2 23 22-29 mmol/L Gap 11 L 12-20 BUN 18 H 9-16 mg/dL Creat 0.90 0.5-1.4 mg/dL Estimated CrCl 45.1 Provided height and weight: 147.32 cm, 65.3 kg. eGFR (calculated from the MDRD study equation) and eCrCl (calculated from the Cockcroft-Gault equation) are based on different parameters and may not yield comparable results. If eCrCl result is absurd, please check patient's height/weight. EGFR > 60 NOTE: For -[place] individuals, multiply the result by 1.210. Chronic Kidney Disease: Estimated GFR < 60 mL/min/1.73m2 Severe Kidney Disease: Estimated GFR < 15 mL/min/1.73m2 Glucose, Random 103 60-115 mg/dL CA 9.7 8.4-10.2 mg/dL Total Bili 2.5 H 0.0-1.0 mg/dL AST (GOT) 51 H 5-31 U/L ALT (GPT) 34 H 0-31 U/L Protein, Total 6.9 6.5-8.0 g/dL Alb 3.5 3.5-5.0 g/dL Alk Phos 120 H 39-117 U/L Coding Level of Care Code Est Pt Prev Care >65y(16303) Diagnoses Annual visit for general adult medical examination with abnormal findings Z00.01 Encounter for screening for lipid disorder Z13.220 Osteoporosis, unspecified osteoporosis type, unspecified pathological fracture presence M81.0 Osteoporosis type: unspecified Presence of current pathological fracture: unspecified Screening for Malignant Neoplasm of Skin Z12.83 Thrombocytopenia D69.6 Leukopenia D72.819 Additional Codes EMANI-7 Assessment Billing - EMAIN-7 Assessment Tool: EMANI-7 Assessment 45167 ([id number])
[2024-03-03 11:13] VITALS: BP 112/80; PULSE 68; O2SAT 96; BMI 30.7
== END 2024-03-03 11:56 | disposition home or self-care (01) ==
PROVIDERS: Visit Provider Internal Medicine
DX: Z00.00 Encounter for general adult medical examination without abnormal findings (principal); Z13.220 Encounter for screening for lipoid disorders; D69.6 Thrombocytopenia, unspecified; M81.0 Age-related osteoporosis without current pathological fracture; Z12.83 Encounter for screening for malignant neoplasm of skin; D72.819 Decreased white blood cell count, unspecified
CPT/HCPCS: 99397

== ENCOUNTER 2024-03-05 09:53 | Outpatient (REF) | payer MEDICARE, SELFPAY ==
[2024-03-05 14:02] LABS: Cholesterol 168 mg/dL (<200); HDL Cholesterol 52 mg/dL (>40); LDL Cholesterol Calculated 98 mg/dL (<100); Triglycerides 93 mg/dL (<150)
[2024-03-05 14:08] LABS: Vitamin D 25-OH Total 39.5 ng/mL (>30)
== END 2024-03-05 09:54 | disposition home or self-care (01) ==
LOC: HO.HMGCLDS 09:53
PROVIDERS: PCP Internal Medicine; Visit Provider Internal Medicine
DX: Z00.01 Encounter for general adult medical examination with abnormal findings (principal); Z13.220 Encounter for screening for lipoid disorders; E89.40 Asymptomatic postprocedural ovarian failure
CPT/HCPCS: 36415; 80061; 82306

== ENCOUNTER 2024-03-27 07:26 | Outpatient (REF) | payer MEDICARE, SELFPAY ==
--- NOTE | ~2024-03-27 | MM_ITS ---
EXAMINATION: MM SCREENING DIGITAL BREAST TOMOSYNTHESIS, BILATERAL CLINICAL INFORMATION: Screening. Asymptomatic. COMPARISON: Mammography: This study is compared with prior exams dating back to 2020. TECHNIQUE: Digital breast tomosynthesis is performed in both the craniocaudal and mediolateral oblique views along with computer-aided detection (CAD). Synthesized 2D images are generated from the tomosynthesis. FINDINGS: There are scattered areas of fibroglandular density (ACR BI-RADS breast composition Category b). There are no significant masses, abnormal calcifications, or other abnormalities. There is a biopsy tissue marker in the right breast. MM/MM tomosynthesis screening BI IMPRESSION: No mammographic evidence of malignancy. ASSESSMENT: BI-RADS BI-RADS 1 - Negative RECOMMENDATION: Routine annual mammography screening. 1 year F/U This examination should not preclude the clinical evaluation of a suspicious palpable abnormality. This patient's information was entered into a reminder system with a target due date for their next mammogram.
== END 2024-03-27 07:27 | disposition home or self-care (01) ==
LOC: HO.MAMMO 07:26
PROVIDERS: PCP Internal Medicine; Visit Provider Internal Medicine
DX: Z12.31 Encounter for screening mammogram for malignant neoplasm of breast (principal)
CPT/HCPCS: 77063; 77067

== ENCOUNTER → 2024-03-27 07:45 | Outpatient (BNV) | payer MEDICARE, SELFPAY | PROVIDERS: PCP Internal Medicine; Visit Provider Radiology Diagnostic Radiology | DX: Z12.31 Encounter for screening mammogram for malignant neoplasm of breast (principal) | CPT/HCPCS: 77063; 77067 ==

== ENCOUNTER 2024-05-06 09:20 | Outpatient (AMB) | payer MEDICARE, SELFPAY ==
[2024-05-06 09:21] VITALS: BP 112/64; PULSE 68; BMI 30.9
--- NOTE | 2024-05-06 09:21 | A.OFFVIS_ITS ---
Vital Signs 05/06/24 09:21 Height 4 ft 10 in Weight 147 lb 14.883 oz BMI 30.9 BP 112/64 Blood Pressure Location Lt brachial Position Sitting Pulse 68 Pulse Source Pulse Oximeter Intake Visit Reasons: Osteoporosis Intake Note: New patient present today for Osteoporosis office visit. 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 The patient last saw Dr. Bach on 02/05/2022 First diagnosed in 2020. She has never been treated for her Osteoporosis No history of pathologic fracture or ONJ. She does have a history of ETOH abuse and likely cirrhosis. She has severe thrombocytopenia and is following with Dr. Bansal. She is also following with Dr. Tirado. Has 0-1 servings of dietary calcium per day in the form of yogurt. Takes Calcium supplement 1000mg daily. Is taking Vitamin D 2000 IU daily. Denies ever using PPI, anticoagulant, antiepileptic or glucocorticoid medication. Does weight bearing exercise 2-3 days per week in the form of walking, 2-3 miles at a time. Fracture history: Broke her wrist from a fall from standing height. 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 Periods were always irregular having heavy menses. . She did not breastfeed. Menopause was age 41 when she had a hysterectomy due to menorrhagia. Denies history of Kidney stones: Unsure of a family history of Osteoporosis or hip fracture. UTD on dental cleanings and sees dentist every 6 months. She does have a planned extraction next week. DXA dated 11/11/2020: FINDINGS: AP SPINE L1-L4: BMD 0.722 g/cm2, Z-score -2.6, T-score -3.8, osteoporosis. LEFT FEMUR, NECK: BMD 0.684 g/cm2, Z-score -1.2, T-score -2.5, osteoporosis. LEFT FEMUR, TOTAL: BMD 0.810 g/cm2, Z-score -0.5, T-score -1.6, osteopenia. Labs: Laboratory Tests 02/22/21 02/22/21 02/22/21 08:32 08:32 08:32 Creatinine 0.73 Estimated GFR > 60 Ionized Calcium 5.1 Phosphorus 3.3 Total Bilirubin 1.6 H AST 49 H ALT 35 H Alkaline Phosphatase 119 H Alk Phos Bone Specific 20.4 PEP Interpretation N-Telopeptide X-linked 25-OH Vitamin D Total 53.6 TSH 1.63 Free T4 0.95 PTH Intact 33 Calcium (PTH Intact) 9.0 Ur 24 Hour Volume Ur Creatinine 24 Hour Ur Calcium 24 Hr 02/22/21 02/22/21 02/28/21 08:32 08:32 08:50 Creatinine Estimated GFR Ionized Calcium Phosphorus Total Bilirubin AST ALT Alkaline Phosphatase Alk Phos Bone Specific PEP Interpretation SEE NOTE N-Telopeptide X-linked 31 25-OH Vitamin D Total TSH Free T4 PTH Intact Calcium (PTH Intact) Ur 24 Hour Volume Ur Creatinine 24 Hour 0.98 Ur Calcium 24 Hr 119 02/28/21 08:50 Creatinine Estimated GFR Ionized Calcium Phosphorus Total Bilirubin AST ALT Alkaline Phosphatase Alk Phos Bone Specific PEP Interpretation N-Telopeptide X-linked 25-OH Vitamin D Total TSH Free T4 PTH Intact Calcium (PTH Intact) Ur 24 Hour Volume 1750 Ur Creatinine 24 Hour Ur Calcium 24 Hr Secondary workup was performed was negative .Takes calcium supplementation and vitamin D supplementation. No fx since last visit [facility] Medical History Depression Fracture of proximal end of right humerus Abnormal liver function Vitamin D deficiency Osteoporosis Dyslipidemia (high LDL; low HDL) Essential hypertension Thrombocytopenia Leukopenia Hypersplenism Gallstones Surgical menopause Surgical History History of esophagogastroduodenoscopy (EGD) H/O colonoscopy History of bone marrow biopsy H/O wrist surgery History of hysterectomy Family History Father Parkinsons Mother HTN (hypertension) Pacemaker H/O bladder problems Heart problem Maternal Grandmother No problems noted. Maternal Grandfather Diabetes mellitus Paternal Grandfather History of heart attack CVD (cardiovascular disease) Paternal Grandmother Unknown family medical history Maternal Aunt Smoker Lung cancer Maternal Uncle Diabetes mellitus Sister No problems noted. Social History Household Members: Spouse Housing: House Are you a primary care management assistant to a significant other at home: No Do you presently have visiting nurse or other home services: No Alcohol intake: former Patient Tobacco Use Status: Former Tobacco user Cigarettes Per Day: 1 Years Smoked: 10 e-Cigarette/Vaping Use: Never Used service: No Current occupational status: employed Current occupational exposures/hazards: No Cognitive needs: No Hearing needs: No Vision needs: No Assessment & Plan Assessment & Plan (1) Osteoporosis: Code(s): M81.0 - Age-related osteoporosis without current pathological fracture Category: Medical Qualifiers: Osteoporosis type: unspecified Presence of current pathological fracture: unspecified Qualified Code(s): M81.0 - Age-related osteoporosis without current pathological fracture Plan: This is a 73-year-old white female with a history of severe osteoporosis. Secondary workup has been performed that was negative. The plan is to ensure 1200 mg of calcium and continued use of vitamin-D supplementation. We will talk to the patient again about potential pharmacologic therapy with a preference being anabolic therapy initially proceeded by anti resorptive therapy in this patient at very high risk for fracture. I discussed with the patient various anabolic and anti resorptive therapy. At this point she wants to go back and think about which therapy she would like to go on a other will get back to me prior to the next visit during the next visit regarding therapy Coding Level of Care Code Est Pt Level 3 (80768) Diagnoses Osteoporosis, unspecified osteoporosis type, unspecified pathological fracture presence M81.0 Osteoporosis type: unspecified Presence of current pathological fracture: unspecified
== END 2024-05-06 09:53 | disposition home or self-care (01) ==
PROVIDERS: PCP Internal Medicine; Visit Provider Internal Medicine Endocrinology, Diabetes & Metabolism
DX: M81.0 Age-related osteoporosis without current pathological fracture (principal)
CPT/HCPCS: 99213

== ENCOUNTER → 2024-05-06 09:20 | Outpatient (BNVA) | payer MEDICARE, SELFPAY | PROVIDERS: PCP Internal Medicine; Visit Provider Internal Medicine Endocrinology, Diabetes & Metabolism | DX: M81.0 Age-related osteoporosis without current pathological fracture (principal) | CPT/HCPCS: 99212 ==

== ENCOUNTER 2024-05-25 09:22 | Outpatient (AMB) | payer MEDICARE, SELFPAY ==
--- NOTE | 2024-05-25 09:26 | A.OFFVIS_ITS ---
Vital Signs 05/25/24 09:27 Height 4 ft 10 in Weight 145 lb 8.081 oz BMI 30.4 BP 131/57 L Blood Pressure Location Lt brachial Position Sitting Pulse 62 Intake Visit Reasons: 6 month f/u Intake Note: Arielle presents in the office as a 6 month follow up. CC: She states that she is not having any concerns at this time. 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 Colon, rectosigmoid polyp: Tubulovillous adenoma, completely excised; negative for high-grade dysplasia and carcinoma. B. Stomach, biopsy: Gastric antral and body mucosa with minimal chronic inactive gastritis; negative for H pylori, intestinal metaplasia and dysplasia. CT 12/2023- several mildly enlarged LN-earl portal area cirrhosis, splenomegaly atherosclerosis, gallstones LFT remain up in down, low digits, bili 2.5 INTERIM: She has no major issues or complaints no night sweats no fevers no sore throats no nose bleeds shoulder is much better appetite is good weight is stable no abdominal pain EXAM: GENERAL: The patient is well developed and nontoxic. VITAL SIGNS:see workflow HEENT: Nonicteric sclerae, PERRLA, EOMI. Oropharynx clear. Moist mucous membranes. Conjunctivae appear well perfused. No thyroid mass. CHEST: Chest wall is nontender. HEART: Regular rate and rhythm without murmurs. LUNGS: Clear to auscultation bilaterally. ABDOMEN: Soft, positive bowel sounds, nontender, no organomegaly.no flank tenderness SKIN: No rash, no excessive bruising, petechiae, or purpura. NEUROLOGIC: Cranial nerves II-XII intact without motor/sensory deficit. psych: nml affect MS: better ROM now A/P: Abn LFT, longstanding incl low plts and WCC, suspected cirrhosis and hypersplenism from LOONEY, but could be AIH as well--MELD 3.0 is 14 2/ Tubulovillous colon polyp PLAN: 1/ repeat triple phase CT 2/ she is amenable to liver bx but would need to co ordinate with hematology and IR due to her low plts 3/ EGD later this year or next, colonoscopy in 2-3 yrs or so 4/ no action on gallstones as no sx at this time 5/ MELD is 14 but given her age would not be a transplant candidate PFSH Medical History Depression Fracture of proximal end of right humerus Abnormal liver function Vitamin D deficiency Osteoporosis Dyslipidemia (high LDL; low HDL) Essential hypertension Thrombocytopenia Leukopenia Hypersplenism Gallstones Surgical menopause Surgical History History of esophagogastroduodenoscopy (EGD) H/O colonoscopy History of bone marrow biopsy H/O wrist surgery History of hysterectomy Family History Father Parkinsons Mother HTN (hypertension) Pacemaker H/O bladder problems Heart problem Maternal Grandmother No problems noted. Maternal Grandfather Diabetes mellitus Paternal Grandfather History of heart attack CVD (cardiovascular disease) Paternal Grandmother Unknown family medical history Maternal Aunt Smoker Lung cancer Maternal Uncle Diabetes mellitus Sister No problems noted. Social History Household Members: Spouse Housing: House Are you a primary customer care assistant to a significant other at home: No Do you presently have visiting nurse or other home services: No Alcohol intake: former Patient Tobacco Use Status: Former Tobacco user Cigarettes Per Day: 1 Years Smoked: 10 e-Cigarette/Vaping Use: Never Used service: No Current occupational status: employed Current occupational exposures/hazards: No Cognitive needs: No Hearing needs: No Vision needs: No Physical Exam Vital Signs: Last Vital Signs Pulse 62 05/25/24 09:27 BP 131/57 L 05/25/24 09:27 BMI result Body Mass Index 30.4 Assessment & Plan Assessment & Plan (1) Abnormal liver function: Code(s): R94.5 - Abnormal results of liver function studies Category: Medical Plan: see above Coding Level of Care Code Est Pt Level 4 (29020) Diagnoses Abnormal liver function R94.5
[2024-05-25 09:27] VITALS: BP 131/57; PULSE 62; BMI 30.4
== END 2024-05-25 09:48 | disposition home or self-care (01) ==
PROVIDERS: PCP Internal Medicine; Visit Provider Internal Medicine Gastroenterology
DX: R94.5 Abnormal results of liver function studies (principal)
CPT/HCPCS: 99214

== ENCOUNTER → 2024-05-25 09:22 | Outpatient (BNVA) | payer MEDICARE, SELFPAY | PROVIDERS: PCP Internal Medicine; Visit Provider Internal Medicine Gastroenterology | DX: R94.5 Abnormal results of liver function studies (principal) | CPT/HCPCS: 99212 ==

== ENCOUNTER 2024-08-06 10:01 | Outpatient (AMB) | payer MEDICARE, SELFPAY ==
--- NOTE | 2024-08-06 10:03 | A.OFFVIS_ITS ---
Vital Signs 08/06/24 10:08 Height 4 ft 9.2 in Weight 145 lb 15.136 oz BMI 31.4 BP 144/66 H Blood Pressure Location Rt brachial Position Sitting Pulse 65 Pulse Source Pulse Oximeter Intake Visit Reasons: Osteoporosis-conf Intake Note: Patient present today for Osteoporosis follow up visit. 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 The patient last saw Dr. Bach on 02/05/2022 First diagnosed in 2020. She has never been treated for her Osteoporosis No history of pathologic fracture or ONJ. She does have a history of ETOH abuse and likely cirrhosis. She has severe thrombocytopenia and is following with Dr. Bansal. She is also following with Dr. Tirado. Has 0-1 servings of dietary calcium per day in the form of yogurt. Takes Calcium supplement 1000mg daily. Is taking Vitamin D 2000 IU daily. Denies ever using PPI, anticoagulant, antiepileptic or glucocorticoid medicat ion. Does weight bearing exercise 2-3 days per week in the form of walking, 2-3 miles at a time. Fracture history: Broke her wrist from a fall from standing height. 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 Periods were always irregular having heavy menses. . She did not breastfeed. Menopause was age 41 when she had a hysterectomy due to menorrhagia. Denies history of Kidney stones: Unsure of a family history of Osteoporosis or hip fracture. UTD on dental cleanings and sees dentist every 6 months. She does have a planned extraction next week. DXA dated 11/11/2020: FINDINGS: AP SPINE L1-L4: BMD 0.722 g/cm2, Z-score -2.6, T-score -3.8, osteoporosis. LEFT FEMUR, NECK: BMD 0.684 g/cm2, Z-score -1.2, T-score -2.5, osteoporosis. LEFT FEMUR, TOTAL: BMD 0.810 g/cm2, Z-score -0.5, T-score -1.6, osteopenia. Labs: Laboratory Tests 02/22/21 02/22/21 02/22/21 08:32 08:32 08:32 Creatinine 0.73 Estimated GFR > 60 Ionized Calcium 5.1 Phosphorus 3.3 Total Bilirubin 1.6 H AST 49 H ALT 35 H Alkaline Phosphatase 119 H Alk Phos Bone Specific 20.4 PEP Interpretation N-Telopeptide X-linked 25-OH Vitamin D Total 53.6 TSH 1.63 Free T4 0.95 PTH Intact 33 Calcium (PTH Intact) 9.0 Ur 24 Hour Volume Ur Creatinine 24 Hour Ur Calcium 24 Hr 02/22/21 02/22/21 02/28/21 08:32 08:32 08:50 Creatinine Estimated GFR Ionized Calcium Phosphorus Total Bilirubin AST ALT Alkaline Phosphatase Alk Phos Bone Specific PEP Interpretation SEE NOTE N-Telopeptide X-linked 31 25-OH Vitamin D Total TSH Free T4 PTH Intact Calcium (PTH Intact) Ur 24 Hour Volume Ur Creatinine 24 Hour 0.98 Ur Calcium 24 Hr 119 02/28/21 08:50 Creatinine Estimated GFR Ionized Calcium Phosphorus Total Bilirubin AST ALT Alkaline Phosphatase Alk Phos Bone Specific PEP Interpretation N-Telopeptide X-linked 25-OH Vitamin D Total TSH Free T4 PTH Intact Calcium (PTH Intact) Ur 24 Hour Volume 1750 Ur Creatinine 24 Hour Ur Calcium 24 Hr Secondary workup was performed was negative .Takes calcium supplementation and vitamin D supplementation. No fx since last visit [facility] Medical History (Updated 07/29/24 @ 23:06 by Diane Stockton MD) Depression Fracture of proximal end of right humerus Abnormal liver function Vitamin D deficiency Osteoporosis Dyslipidemia (high LDL; low HDL) Essential hypertension Thrombocytopenia Leukopenia Hypersplenism Gallstones Surgical menopause Surgical History History of esophagogastroduodenoscopy (EGD) H/O colonoscopy History of bone marrow biopsy H/O wrist surgery History of hysterectomy Family History Father Parkinsons Mother HTN (hypertension) Pacemaker H/O bladder problems Heart problem Maternal Grandmother No problems noted. Maternal Grandfather Diabetes mellitus Paternal Grandfather History of heart attack CVD (cardiovascular disease) Paternal Grandmother Unknown family medical history Maternal Aunt Smoker Lung cancer Maternal Uncle Diabetes mellitus Sister No problems noted. Social History Household Members: Spouse Housing: House Are you a primary care transition manager to a significant other at home: No Do you presently have visiting nurse or other home services: No Alcohol intake: former Patient Tobacco Use Status: Former Tobacco user Cigarettes Per Day: 1 Years Smoked: 10 e-Cigarette/Vaping Use: Never Used service: No Current occupational status: employed Current occupational exposures/hazards: No Cognitive needs: No Hearing needs: No Vision needs: No Physical Exam Vital Signs: BMI result Body Mass Index 31.4 Assessment & Plan Assessment & Plan (1) Osteoporosis: Code(s): M81.0 - Age-related osteoporosis without current pathological fracture Category: Medical Qualifiers: Osteoporosis type: unspecified Presence of current pathological fracture: unspecified Qualified Code(s): M81.0 - Age-related osteoporosis without current pathological fracture Plan: This is a 74-year-old white female with a history of severe osteoporosis. Secondary workup has been performed that was negative. The plan is to ensure 1200 mg of calcium and continued use of vitamin-D supplementation. We will talk to the patient again about potential pharmacologic therapy with a preference being anabolic therapy initially proceeded by anti resorptive therapy in this patient at very high risk for fracture. I discussed with the patient various anabolic and anti resorptive therapy. After careful discussion we decided on initiating Evenity assuming insurance would approve. Medications: New [id number] (Evenity) inject in office 210 mg (2.34 mL) subcut .qmonth 2.34 mL 11RF Coding Level of Care Code Est Pt Level 3 (13516) Diagnoses Osteoporosis, unspecified osteoporosis type, unspecified pathological fracture presence M81.0 Osteoporosis type: unspecified Presence of current pathological fracture: unspecified
[2024-08-06 10:08] VITALS: BP 144/66; PULSE 65; BMI 31.4
== END 2024-08-06 10:28 | disposition home or self-care (01) ==
LOC: HO.ENCR 10:01
PROVIDERS: PCP Internal Medicine; Visit Provider Internal Medicine Endocrinology, Diabetes & Metabolism
DX: M81.0 Age-related osteoporosis without current pathological fracture (principal)
CPT/HCPCS: 99213

== ENCOUNTER → 2024-08-06 10:01 | Outpatient (BNVA) | payer MEDICARE, SELFPAY | PROVIDERS: PCP Internal Medicine; Visit Provider Internal Medicine Endocrinology, Diabetes & Metabolism | DX: M81.0 Age-related osteoporosis without current pathological fracture (principal) | CPT/HCPCS: 99212 ==

== ENCOUNTER 2024-10-26 14:50 | Outpatient (AMB) | payer MEDICARE, SELFPAY ==
[2024-10-26 14:52] VITALS: BP 147/63; PULSE 69; BMI 30.9
--- NOTE | 2024-10-26 14:52 | A.OFFVIS_ITS ---
Vital Signs 10/26/24 14:52 Height 4 ft 10 in Weight 148 lb BMI 30.9 BP 147/63 H Blood Pressure Location Rt brachial Position Sitting Pulse 69 Intake Visit Reasons: follow up Abnormal liver function Intake Note: Patient in office today in follow up of abnormal liver fuction. CC: Patient reports feeling fine and denies any GI symptoms or concerns. 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 Accompanied by: Self / Same As Patient Allergies No Known Drug Allergies Allergy (Unknown, Verified 10/26/24 15:01) none latex Adverse Reaction (Verified 10/26/24 15:01) rash HPI HPI follow up Abnormal liver function: Details: 74 yr old f w HTN here for f/u due to abn LFT RECAP: she has had chronic abn LFT and low plts since at least 2013 with coarse liver texture saw hematology and had extensive work up, no hematology cause found but splenomegaly noted with coarse liver she fell and fractured her right humerus, was undergoing therapy LFT 09/2022 bili 2.5 AST 49 alk phos: 126 INR: 1.3 EGD/colo: 09/21: Endoscopy Findings: pill gastritis small varices Colonoscopy Findings: polyp internal hemorrhoids PAth: A. Colon, rectosigmoid polyp: Tubulovillous adenoma, completely excised; negative for high-grade dysplasia and carcinoma. B. Stomach, biopsy: Gastric antral and body mucosa with minimal chronic inactive gastritis; negative for H pylori, intestinal metaplasia and dysplasia. CT 12/2023- several mildly enlarged LN-earl portal area cirrhosis, splenomegaly atherosclerosis, gallstones LFT are stable INTERIM: she feels well and has no complaints no night sweats no fevers no sore throats no nose bleeds appetite is good weight is stable no abdominal pain EXAM: GENERAL: The patient is well developed and nontoxic. VITAL SIGNS:see workflow HEENT: Nonicteric sclerae, PERRLA, EOMI. Oropharynx clear. Moist mucous membranes. Conjunctivae appear well perfused. No thyroid mass. CHEST: Chest wall is nontender. HEART: Regular rate and rhythm without murmurs. LUNGS: Clear to auscultation bilaterally. ABDOMEN: Soft, positive bowel sounds, nontender, no organomegaly.no flank tender ness SKIN: No rash, no excessive bruising, petechiae, or purpura. NEUROLOGIC: Cranial nerves II-XII intact without motor/sensory deficit. psych: nml affect MS: better ROM now A/P: 1/ Abn LFT, longstanding incl low plts and WCC, suspected cirrhosis and hypersplenism from LOONEY, but could be AIH 2/ Tubulovillous colon polyp PLAN: 1/ MRI liver protocol 2/ she wants to hold on liver bx 3/ EGD and colonoscopy at future point 4/ no action on gallstones as no sx at this time 5/ MELD is 14 but given her age would not be a transplant candidate [facility] Medical History Depression Fracture of proximal end of right humerus Abnormal liver function Vitamin D deficiency Osteoporosis Dyslipidemia (high LDL; low HDL) Essential hypertension Thrombocytopenia Leukopenia Hypersplenism Gallstones Surgical menopause Surgical History History of esophagogastroduodenoscopy (EGD) H/O colonoscopy History of bone marrow biopsy H/O wrist surgery History of hysterectomy Family History Father Parkinsons Mother HTN (hypertension) Pacemaker H/O bladder problems Heart problem Maternal Grandmother No problems noted. Maternal Grandfather Diabetes mellitus Paternal Grandfather History of heart attack CVD (cardiovascular disease) Paternal Grandmother Unknown family medical history Maternal Aunt Smoker Lung cancer Maternal Uncle Diabetes mellitus Sister No problems noted. Social History Household Members: Spouse Housing: House Are you a primary client care specialist to a significant other at home: No Do you presently have visiting nurse or other home services: No Alcohol intake: former Patient Tobacco Use Status: Former Tobacco user Cigarettes Per Day: 1 Years Smoked: 10 e-Cigarette/Vaping Use: Never Used service: No Current occupational status: employed Current occupational exposures/hazards: No Cognitive needs: No Hearing needs: No Vision needs: No Physical Exam Vital Signs: Last Vital Signs Pulse 69 10/26/24 14:52 BP 147/63 H 10/26/24 14:52 BMI result Body Mass Index 30.9 Assessment & Plan Assessment & Plan (1) Liver lesion: Code(s): K76.9 - Liver disease, unspecified Category: Medical Plan: as above Orders: Orders MR abdomen wo/w con 10/26/24 K76.9 - Liver disease, unspecified Coding Level of Care Code Est Pt Level 4 (51929) Diagnoses Liver lesion K76.9
== END 2024-10-26 15:37 | disposition home or self-care (01) ==
PROVIDERS: PCP Internal Medicine; Visit Provider Internal Medicine Gastroenterology
DX: K76.9 Liver disease, unspecified (principal)
CPT/HCPCS: 99214

== ENCOUNTER → 2024-10-26 14:50 | Outpatient (BNVA) | payer MEDICARE, SELFPAY | PROVIDERS: PCP Internal Medicine; Visit Provider Internal Medicine Gastroenterology | DX: K76.9 Liver disease, unspecified (principal) | CPT/HCPCS: 99212 ==

== ENCOUNTER → 2024-12-07 10:45 | Outpatient (BNVA) | payer MEDICARE, SELFPAY | PROVIDERS: PCP Internal Medicine; Visit Provider Internal Medicine Endocrinology, Diabetes & Metabolism | DX: M81.0 Age-related osteoporosis without current pathological fracture (principal) | CPT/HCPCS: 99212 ==

== ENCOUNTER 2025-03-29 09:16 | Outpatient (REF) | payer MEDICARE, SELFPAY ==
[2025-03-29 11:13] LABS: Alanine Aminotransferase 30 U/L (0-31); Anion Gap 10 (12-20); Aspartate Amino Transferase 52 U/L (5-31); Blood Urea Nitrogen 18 mg/dL (9-16); Calcium 8.7 mg/dL (8.4-10.2); Carbon Dioxide 23 mmol/L (22-29); Chloride 114 mmol/L (96-108); Cholesterol 149 mg/dL (<200); Estimated Glomerular Filt Rate > 60; Glucose Fasting 89 mg/dL (60-99); HDL Cholesterol 48 mg/dL (>40); LDL Cholesterol Calculated 84 mg/dL (<100); Potassium 3.9 mmol/L (3.3-5.1); Sodium 143 mmol/L (135-145); Triglycerides 89 mg/dL (<150)
== END 2025-03-29 09:17 | disposition home or self-care (01) ==
LOC: HO.HMGCLDS 09:16
PROVIDERS: PCP Internal Medicine; Visit Provider Internal Medicine
DX: R94.5 Abnormal results of liver function studies (principal); I10 Essential (primary) hypertension; E78.5 Hyperlipidemia, unspecified
CPT/HCPCS: 36415; 80048; 80061; 84450; 84460

== ENCOUNTER 2025-03-31 10:04 | Outpatient (AMB) | payer MEDICARE, SELFPAY ==
--- NOTE | 2025-03-31 10:24 | A.OFFPC_ITS ---
Vital Signs 03/31/25 10:40 Height 4 ft 9.2 in Weight 149 lb BMI 32.0 BP 126/68 Blood Pressure Location Lt brachial Position Sitting Respiration 16 Pulse 66 Pulse Source Pulse Oximeter Temp 98.0 F Temp Source Oral Pulse Oximetry (%) 97 Oxygen Delivery Method Room Air Intake Visit Reasons: PE~ R/S provider out - see comments Intake Note: Pt is here today mammogram 03/27/24, bone denisty scan 03/13/23, colonoscopy 09/24/23 Allergies No Known Drug Allergies Allergy (Unknown, Verified 04/05/25 02:49) none latex Adverse Reaction (Verified 04/05/25 02:49) rash Medication List - Last Reconciled 04/05/25 by Diane Stockton MD labetalol 200 mg PO BID multivitamin 1 tab PO DAILY vitamin B complex (B Complex-Vitamin B12 tablet) 1 tab PO DAILY Tobacco use date assessed: 03/31/25 Fall risk assessment: No Falls in past year Last assessed Fall Risk: 03/31/25 Dental Screening Dental Screen Date: 03/31/25 Did you have a dental visit in the last 12 months?: Yes Did you have a dental problem in the last 6 months where you did not have access to dental care?: No Was dental information given to patient?: Patient has dentist HPI PE~ R/S provider out - see comments HPI Details 74-year-old lady with history of hyperte nsion, dyslipidemia, osteoporosis, thrombocytopenia, here today for her physical exam. Blood pressure stable and controlled on present treatment. Up-to-date with her breast cancer screening, due again this year, bone density scan was done in 2022 renal osteoporosis found in her lumbar spine. Colonoscopy screening was done in 2022 with repeat due again in 2025 due to polyp removed by Dr. Omalley on previous exam. [facility] Medical History Depression Fracture of proximal end of right humerus Abnormal liver function Vitamin D deficiency Osteoporosis Dyslipidemia (high LDL; low HDL) Essential hypertension Thrombocytopenia Leukopenia Hypersplenism Gallstones Surgical menopause Surgical History History of esophagogastroduodenoscopy (EGD) H/O colonoscopy History of bone marrow biopsy H/O wrist surgery History of hysterectomy Family History Father Parkinsons Mother HTN (hypertension) Pacemaker H/O bladder problems Heart problem Maternal Grandmother No problems noted. Maternal Grandfather Diabetes mellitus Paternal Grandfather History of heart attack CVD (cardiovascular disease) Paternal Grandmother Unknown family medical history Maternal Aunt Smoker Lung cancer Maternal Uncle Diabetes mellitus Sister No problems noted. Social History Household Members: Spouse Housing: House Are you a primary career and transition teacher to a significant other at home: No Do you presently have visiting nurse or other home services: No Alcohol intake: former Patient Tobacco Use Status: Former Tobacco user Cigarettes Per Day: 1 Years Smoked: 10 e-Cigarette/Vaping Use: Never Used service: No Current occupational status: employed Current occupational exposures/hazards: No Cognitive needs: No Hearing needs: No Vision needs: No Questionnaire PHQ-9 Over the last 2 weeks, how often have you been bothered by any of the following problems? 1. Little interest or pleasure in doing things: not at all 2. Feeling down, depressed, or hopeless: several days 3. Trouble falling or staying asleep, or sleeping too much: not at all 4. Feeling tired or having little energy: not at all 5. Poor appetite or overeating: several days 6. Feeling bad about yourself - or that you are a failure or have let yourself or your family down: several days 7. Trouble concentrating on things, such as reading the newspaper or watching television: not at all 8. Moving or speaking so slowly that other people could have noticed. Or the opposite - being so fidgety or restless that you have been moving around a lot more than usual: not at all 9. Thoughts that you would be better off or of hurting yourself in some way: not at all Total score: 3 Depression Screening Interpretation: Negative Depression Screening Done: Yes 50770 - PHQ-9 Billing: Yes Source: Developed by Drs. Cristian Thomas, Beverly Abarca, Han Cabrera and colleagues, with an educational noreen from [employer]. Thrive Questionnaire Date Thrive assessed: 03/31/25 I am a: Patient What is your living situation today?: I have a steady place to live Within the past 12 months, did the food you bought not last and you didn't have the money to get more?: Never true Within the past 12 months, did you worry whether your food would run out before you got money to buy more?: Never true Do you have trouble paying for medicines?: No Do you have trouble getting transportation to medical appointments?: No Do you have trouble paying your heating and electricity bill?: No Do you have trouble taking care of your child, family member or friend?: No Do you have trouble with day-to-day activities such as bathing, preparing meals, shopping, managing finances, etc.?: No Are you currently unemployed and looking for a job?: I choose not to answer this question Are you interested in more education?: I choose not to answer this question Please select the resources that you would like help with: None Currently or been in a relationship where the following occur: I choose not to answer THRIVE Score: 0 AUDIT C Alcohol Use Questionnaire (AUDIT-C) 1. How often do you have a drink containing alcohol?: Never 3. How often do you have six or more drinks on one occasion?: Never Total Score: 0 EMANI-7 AMB Questionnaire EMANI-7 Date EMANI - 7 assessed: 12/07/22 Feeling nervous, anxious, or on edge: 1 = Several days Not being able to stop or control worryin = Several days Worrying too much about different things: 1 = Several days Trouble relaxin = Several days Being so restless that it is hard to sit still: 1 = Several days Becoming easily annoyed or irritable: 1 = Several days Feeling afraid as if something awful might happen: 1 = Several days Total EMANI-7 score (0-4 normal; 5-9 mild; 10-14 moderate; 15-21 severe): 7 Source: Developed by Drs. Cristian Thomas, Beverly Abarca, Han Cabrera and colleagues, with an educational noreen from [employer] EMANI-7 Assessment Billing EMANI-7 Assessment Tool: EMANI-7 Assessment 81866 Review of Systems Const Denies headache(s) Eyes Denies change in vision ENT Denies headache(s) Card Denies chest pain, Denies irregular heart rhythm and Denies dyspnea Resp Denies cough and Denies dyspnea GI Denies abdominal pain, Denies change in bowel habits, Denies diarrhea and Denies nausea Reports no additional complaints Musc Reports no additional complaints Skin/Breast Denies rash, Denies unusual bruising and Denies jaundice Neuro Denies headache(s) Psych Reports no additional complaints Endo Reports no additional complaints Jg/Lymph Denies easy bleeding and Denies easy bruising Aller/Immun Reports no additional complaints Physical exam (Primary Care) Vital Signs: Last Vital Signs Temp 98.0 F 03/31/25 10:40 Pulse 66 03/31/25 10:40 Resp 16 03/31/25 10:40 BP 126/68 03/31/25 10:40 Pulse Ox 97 03/31/25 10:40 Oxygen Delivery Method Room Air 03/31/25 10:40 BMI result Body Mass Index 32.0 Tobacco/Smoking Status: Tobacco use Status Tobacco use date assessed 03/31/25 03/31/25 10:30 Patient Tobacco Use Status Former Tobacco user 03/31/25 10:24 e-Cigarette/Vaping Use Never Used 03/31/25 10:24 PHQ-9: PHQ-9 Score PHQ-9: Total score 3 04/05/25 02:50 Depression Screening Interpretation: Negative Thrive Assessment: Date of Thrive Assessment Date Thrive assessed 03/31/25 03/31/25 10:30 Currently or been in a relationship where the following occur: I choose not to answer Const Other: Alert oriented x3, no acute cardiorespiratory distress noted, ambulatory with normal gait HENMT Face and sinus: Yes face symmetric Mouth: Normal oral and palatal mucosa present, oropharynx normal and moist mucous membranes Eyes General: appearance normal, both eyes and all related structures Neck Neck: Yes full ROM, Yes no lymphadenopathy and Yes supple Chest Breast/axilla palpation: normal palpation of the breasts Resp Effort & Inspection: normal respiratory effort and able to speak in complete sentences Auscultation: clear to auscultation bilaterally Cardio Other: S1-S2 present regular rate and rhythm GI Palpation (GI): Soft to palpation, nontender and no guarding Auscultation: normal bowel sounds General: Yes no CVA tenderness Back/Spine/Pelvis Back: no CVA tenderness and No back tenderness Skin General skin exam: no rashes or lesions noted Neuro General: gait normal, tone normal, moves all extremities, Normal light touch and pain sensation, no focal motor deficits and CN's II-XI intact bilaterally Extrem General: Yes full ROM, Yes no joint enlargement, Yes no pedal edema and Yes normal gait Psych Appearance: grossly normal and well kempt Mental Status: mental status grossly normal Speech and movement: Normal speech and movement present Affect: normal affect Attitude: cooperative Thought process: Normal thought process present Results Reviewed Results Reviewed: Name: Arielle Samano Age/Sex: 74/F : 1950 Unit#: [id number] Attend Dr: Diane Stockton MD Re03/29/25 Status: DEP REF Location: [facility] Disch: SPEC : [id number] MELVIN: 03/29/25 STATUS: COMP REQ : [id number] RECD: 03/29/25-[address]: Diane Stockton MD COMP: 03/29/25 ENTERED: 03/29/25 [facility] DR: ORDERED: Met Prof Fast, AST, ALT, Lipid Panel Test Result Flag Reference Sodium 143 135-145 mmol/L Potassium 3.9 3.3-5.1 mmol/L CL 114 H 96-108 mmol/L CO2 23 22-29 mmol/L Gap 10 L 12-20 BUN 18 H 9-16 mg/dL Creat 0.78 0.5-1.4 mg/dL eGFR > 60 Chronic Kidney Disease: Estimated GFR < 60 mL/min/1.73m2 Severe Kidney Disease: Estimated GFR < 15 mL/min/1.73m2 FBS 89 60-99 mg/dL CA 8.7 8.4-10.2 mg/dL AST (GOT) 52 H 5-31 U/L ALT (GPT) 30 0-31 U/L Triglyceride 89 <150 mg/dL Desirable Triglyceride: less than 150 mg/dL Borderline High Triglyceride 150-199 mg/dL High Triglyceride: 200-499 mg/dL Very High Triglyceride: greater than or equal to 5OO mg/dL Cholesterol 149 <200 mg/dL Desirable Cholesterol: less than 200 mg/dL Borderline High Cholesterol: 200-239 mg/dL High Cholesterol: greater than 239 mg/dL LDL Calculated 84 <100 mg/dL Desirable LDL: less than 100 mg/dL Near Optimal/Above Optimal LDL: 110-129 mg/dL Borderline High LDL: 130-159 mg/dL High LDL: 160-189 mg/dL Very High LDL: greater than or equal to 190 mg/dL HDL 48 >40 mg/dL Desirable HDL: greater than 40 mg/dL Note: This HDL assay may give artificially low results in patients with liver disease. Coding Level of Care Code Est Pt Prev Care >65y(27120) Diagnoses Annual visit for general adult medical examination with abnormal findings Z00.01 Essential hypertension I10 Dyslipidemia (high LDL; low HDL) E78.5 Thrombocytopenia D69.6 Osteoporosis, unspecified osteoporosis type, unspecified pathological fracture presence M81.0 Osteoporosis type: unspecified Presence of current pathological fracture: unspecified Additional Codes PHQ-9 - 51217 - PHQ-9 Billing: Yes ([id number]) EMANI-7 Assessment Billing - EMANI-7 Assessment Tool: EMANI-7 Assessment 54335 ([id number]) Assessment & Plan Assessment & Plan (1) Annual visit for general adult medical examination with abnormal findings: Code(s): Z00.01 - Encounter for general adult medical examination with abnormal findings Plan: Reviewed recent fasting lab results with patient. Recommended dental visit every 6 months and regular eye exams, at least every 2 years. Take adequate calcium in diet and vitamin-D 3 at 2000 IU per cap once a day, in addition to weight-bearing exercises to help maintain good muscle tone and weight control. Instructed to do self-breast exam, and continue to get yearly mammogram . Due for repeat colonoscopy with Dr. Omalley in 3 years (2) Essential hypertension: Code(s): I10 - Essential (primary) hypertension Category: Medical Plan: Blood pressure at goal of less than 130/80. Currently on labetalol 200 mg 1 tablet twice a day. Reinforced importance of following a low sodium diet, getting regular exercise, and lowering stress levels. (3) Dyslipidemia (high LDL; low HDL): Code(s): E78.5 - Hyperlipidemia, unspecified Category: Medical Plan: Fasting lipids are within normal limits, continued adherence to was exercise stressed (4) Thrombocytopenia: Code(s): D69.6 - Thrombocytopenia, unspecified Category: Medical Plan: Followed by hematology, no abnormal bleeding noted (5) Osteoporosis: Code(s): M81.0 - Age-related osteoporosis without current pathological fracture Category: Medical Qualifiers: Osteoporosis type: unspecified Presence of current pathological fracture: unspecified Qualified Code(s): M81.0 - Age-related osteoporosis wi thout current pathological fracture Plan: Already evaluated by endocrine clinic, who delayed treatment until cleared by her log skidder before starting medication
[2025-03-31 10:40] VITALS: BP 126/68; PULSE 66; RESP 16; TEMP 36.7; O2SAT 97; BMI 32.0
== END 2025-03-31 11:16 | disposition home or self-care (01) ==
LOC: HO.HMCC 10:05
PROVIDERS: PCP Internal Medicine; Visit Provider Internal Medicine
DX: Z00.01 Encounter for general adult medical examination with abnormal findings (principal); I10 Essential (primary) hypertension; E78.5 Hyperlipidemia, unspecified; D69.6 Thrombocytopenia, unspecified; M81.0 Age-related osteoporosis without current pathological fracture

== ENCOUNTER → 2025-03-31 10:04 | Outpatient (BNVA) | payer MEDICARE, SELFPAY | PROVIDERS: PCP Internal Medicine; Visit Provider Internal Medicine | DX: Z00.01 Encounter for general adult medical examination with abnormal findings (principal); I10 Essential (primary) hypertension; E78.5 Hyperlipidemia, unspecified; N81.0 Urethrocele; D69.6 Thrombocytopenia, unspecified; M81.0 Age-related osteoporosis without current pathological fracture | CPT/HCPCS: 96127; 99397 ==

== ENCOUNTER 2025-04-09 07:30 | Outpatient (REF) | payer MEDICARE, SELFPAY | END 2025-04-09 07:31 | disposition home or self-care (01) | LOC: HO.MAMMO 07:30 | PROVIDERS: PCP Internal Medicine; Visit Provider Internal Medicine | DX: Z12.31 Encounter for screening mammogram for malignant neoplasm of breast (principal) | CPT/HCPCS: 77063; 77067 ==

== ENCOUNTER → 2025-04-09 07:30 | Outpatient (BNV) | payer MEDICARE, SELFPAY | PROVIDERS: PCP Internal Medicine; Visit Provider Internal Medicine | DX: Z12.31 Encounter for screening mammogram for malignant neoplasm of breast (principal) | CPT/HCPCS: 77063; 77067 ==

== ENCOUNTER 2025-05-04 19:03 | Emergency (ER) | payer MEDICARE, SELFPAY ==
--- NOTE | ~2025-05-04 | CT_ITS ---
CLINICAL HISTORY: fall, severe thrombocytopenia CT head without contrast Comparison: CT/SR - CT HEAD WITHOUT IV CONTRAST - 09/10/22 16:30 EST Findings: No intra-axial mass, midline shift, hydrocephalus, or acute hemorrhage. No significant atrophy-like change or white matter disease. Right maxillary sinus disease. Mastoid air cells are normal. The orbits are within normal limits. There is no acute fracture. Essentially stable left scalp vertex well-circumscribed mass, possibly sebaceous cyst. IMPRESSION: 1. No acute intracranial findings. This document has been electronically signed by: Kostas Jones MD on 05/04/2025 21:28:40
--- NOTE | ~2025-05-04 | CT_ITS ---
CLINICAL HISTORY: s p fall CT cervical spine without contrast Comparison: CT/SR - CT CERVICAL SPINE WITHOUT IV CONTRAST - 09/10/22 16:30 EST Findings: Vertebral alignment is within normal limits. Essentially stable degenerative change. No acute fractures or dislocations. No acute findings on limited view of the intracranial contents. No cervical fluid collections or masses. No consolidation or effusion at the lung apices. IMPRESSION: No acute findings. This document has been electronically signed by: Kostas Jones MD on 05/04/2025 21:17:34
--- NOTE | ~2025-05-04 | XR_ITS ---
CLINICAL HISTORY: fall, pain Right forearm two views Comparison: None provided Findings: Nondisplaced radial head fracture noted. Elbow films may be of value. No other bony abnormality identified. Prior distal radius fracture fixation hardware. Impression: Radial head fracture, elbow films may be of value This document has been electronically signed by: Joel Naidu MD on 05/05/2025 00:25:09
--- NOTE | ~2025-05-04 | XR_ITS ---
CLINICAL HISTORY: pain s p fall Right wrist four views Comparison: None provided Findings: Irregular lucency mid scaphoid. Fracture is not excludable. Please correlate regarding site of tenderness. No other bony abnormality identified. Prior distal radial fracture fixation hardware. Hardware intact without loosening. Diffuse decreased bone density noted. Impression: Possible nondisplaced scaphoid fracture Please correlate regarding site of tenderness This document has been electronically signed by: Joel Naidu MD on 05/04/2025 20:43:39
[2025-05-04 19:44] VITALS: BP 172/73; PULSE 77; RESP 18; TEMP 36.8; O2SAT 97; BMI 31.9
--- NOTE | 2025-05-04 19:44 | ED.UPPEXIN ---
HPI - Extremity Injury (Upper) General Chief Complaint: Fall Stated Complaint: Fall Time Seen by Provider: 05/04/25 22:11 Source: patient, RN notes reviewed and old records reviewed Mode of arrival: ambulatory Limitations: no limitations History of Present Illness ED Provider: Dr. Sallie Tariq HPI narrative: 72-year-old female with a history of osteoporosis, thrombocytopenia and hypertension presenting after a fall that occurred prior to arrival. Patient states she was walking out of a store and across a crosswalk when she was waving at the person that let her go by. Admits that she tripped in a hole in the ground, falling onto her right forearm. Did not hit her head or lose consciousness. Was able to stand up after the fall without assistance. Describes pain in her right forearm. Limited range of motion in the right elbow secondary to pain. Has a history of wrist fracture on that side and has limited mobility of the right wrist at baseline. She reports no change in that. No numbness/tingling/weakness of the hand. Feeling well prior to the fall. Denies recent illness including fever, cough or cold-type symptoms, chest pain, difficulty breathing, abdominal pain, nausea or vomiting, bowel changes or urinary complaints. Related Data Home Medications ?Medication ?Instructions ?Recorded ?Confirmed multivitamin 1 tab PO DAILY 11/22/20 04/12/25 vitamin B complex (B 1 tab PO DAILY 04/24/21 04/12/25 Complex-Vitamin B12 tablet) Previous Rx's ?Medication ?Instructions ?Recorded labetalol 200 mg tablet 200 mg PO BID #180 tabs 02/08/25 nitrofurantoin 100 mg PO Q12H #14 caps 04/13/25 monohydrate/macrocrystals 100 mg capsule (Macrobid) cefixime 400 mg capsule 400 mg PO DAILY #7 caps 04/14/25 Allergies Allergy/AdvReac Type Severity Reaction Status Date / Time No Known Drug Allergies Allergy Unknown none Verified 05/04/25 19:47 latex AdvReac rash Verified 05/04/25 19:47 Review of Systems Review of Systems: As per HPI, full review of systems performed and negative but for the above mentioned pertinent positives and negatives. PMFSH Past Medical History PMF Narrative: Thrombocytopenia, hypertension, osteoporosis Medical History Depression Fracture of proximal end of right humerus Abnormal liver function Vitamin D deficiency Osteoporosis Dyslipidemia (high LDL; low HDL) Essential hypertension Thrombocytopenia Leukopenia Hypersplenism Gallstones Surgical menopause Surgical History History of esophagogastroduodenoscopy (EGD) H/O colonoscopy History of bone marrow biopsy H/O wrist surgery History of hysterectomy Family History Family History Father Parkinsons Mother HTN (hypertension) Pacemaker H/O bladder problems Heart problem Maternal Grandmother No problems noted. Maternal Grandfather Diabetes mellitus Paternal Grandfather History of heart attack CVD (cardiovascular disease) Paternal Grandmother Unknown family medical history Maternal Aunt Smoker Lung cancer Maternal Uncle Diabetes mellitus Sister No problems noted. Social History Social History Household Members: Spouse Housing: House Are you a primary care mgr to a significant other at home: No Do you presently have visiting nurse or other home services: No Alcohol intake: former Patient Tobacco Use Status: Former Tobacco user Cigarettes Per Day: 1 Years Smoked: 10 e-Cigarette/Vaping Use: Never Used Advance Directives: No Advance Directives Information Provided: No service: No Current occupational status: employed Current occupational exposures/hazards: No Cognitive needs: No Hearing needs: No Vision needs: No Physical Exam Exam: Exam: GENERAL: Uncomfortable-Appearing, conversant, mild distress due to pain. SKIN: Normal skin color for ethnicity, warm, dry, intact, no rashes noted. HEENT: Normocephalic, atraumatic, no stridor, airway patent, no raccoon's eyes, no Arriola sign, dentition intact, EOMI. NECK: Soft, supple, full ROM, midline structures nontender, no step-offs, no deformities, no lymphadenopathy. CHEST: Heart regular rate and rhythm, no murmurs, symmetric chest rise and fall, no crepitus. PULMONARY: Clear to auscultation bilaterally, no labored breathing, no wheezes/rhales/rhonchi. ABDOMINAL: Soft, nondistended, nontender, positive bowel sounds in all quadrants. : Deferred. MUSCULOSKELETAL: Normal tone, limited range of motion in the right elbow in extension, able to fully flex the forearm at the elbow, limited wrist extension due to previous fixation, full function of the radial, median and ulnar nerves of the right, no deformities, contusion overlying the volar aspect of the right forearm about midway to the elbow, neurovascularly intact distally. NEURO: Alert and oriented x3, CN II through XII intact, equal strength and sensation bilateral upper and lower extremities, no focal neurologic deficits. PSYCHIATRIC: Anxious affect, fluid speech, good eye contact and appropriate demeanor. Vital Signs: Vital Signs: Last Vital Signs Temp 97.7 F 05/05/25 00:44 Pulse 75 05/05/25 00:44 Resp 16 05/05/25 00:44 BP 153/56 H 05/05/25 00:44 Pulse Ox 97 05/05/25 00:44 O2 Del Method Room Air 05/05/25 00:44 BMI result Body Mass Index 31.9 Course Course Course Narrative: This is a Rapid Medical Examination (RME) performed by Tiffanie Palacio PA-C in triage. Full HPI, ROS, assessment and treatment plan per primary provider in the Main ED. 74 yo female with history of thrombocytopenia (platelets 20k) who presents to the ER for evaluation of right wrist pain s/p fall this afternoon. she lost balance and fell onto her right upper extremity. no head strike or LOC. no gross deformity of the wrist on exam, NV intact. Plan: CT head given severe thrombocytopenia, XR wrist, basic labs Medications Administered Discontinued Medications Generic Name Dose Route Start Last Admin Trade Name Freq PRN Reason Stop Dose Admin Acetaminophen 650 mg 05/04/25 23:36 05/05/25 00:12 Acetaminophen 325 Mg Tablet PO 05/04/25 23:37 650 mg ONCE ONE Administration Medical Decision Making Medical Decision Making [facility] Narrative: Patient presents today with musculoskeletal injury. Differential diagnosis includes fracture, soft tissue contusion, ligamentous injury, tendon injury, infection, laceration, among others. Patient is neurovascularly intact upon arrival to the emergency department. Based on physical exam, appropriate imaging was ordered. Initial x-ray performed in triage was of the wrist. There is question of a potential scaphoid fracture however, patient has no tenderness at the scaphoid, no anatomical snuffbox tenderness, full range of motion of the thumb, no evidence of fracture today. She does however have a significant contusion overlying the mid forearm. I have added on a x-ray of the forearm. She has limited range of motion in the elbow secondary to pain. No point tenderness in the elbow. She has no other significant changes in her blood work including a baseline thrombocytopenia. No evidence of bleed on head CT. No neurologic deficits on exam. Patient placed in sling for comfort. Using shared decision making, plan for discharge home to follow-up with primary care and/or specialist. Patient understands and agrees with plan for discharge. Discharged home in stable condition. Patient discharged prior to final read by radiologist of the right forearm x-ray. She was placed in a sling prior to discharge. We will discuss case with Orthopedics to arrange for follow-up regarding radial head fracture that was read by the radiologist. Differential Diagnosis Differential Diagnoses: The differential diagnosis associated with the presentation includes (As above) Admission/Observation Consideration of admission/observation: Escalation of care including admission/observation considered Consult Healthcare Provider Management of the patient was discussed with: [employer] (Orthopedic surgery) Lab Data MDM Lab Attestation statement: I reviewed the patient's lab results. 05/04/25 19:57 05/04/25 19:57 Labs: Lab Results 05/04/25 Range/Units 19:57 WBC 3.0 L (4.8-10.8) X10*3/uL RBC 3.25 L (4.20-5.50) X10*6/uL Hgb 10.5 L (12.0-16.0) g/dl Hct 31.2 L (37.0-47.0) % MCV 96.0 (80.0-98.0) fL MCH 32.3 (27.0-33.0) pg MCHC 33.7 (31.0-35.0) g/dl RDW 14.9 (11.0-16.0) % Plt Count 26 L (160-400) X10*3/uL MPV 12.7 H (9.4-12.3) fL Immature Gran % (Auto) 0.7 H (0.0-0.4) % Neut % (Auto) 72.9 (45-73) % Lymph % (Auto) 14.4 L (20-40) % Harlan % (Auto) 7.7 (2-11) % Eos % (Auto) 4.0 (0-4) % Baso % (Auto) 0.3 (0-2) % Lymph # (Auto) 0.4 L (1.2-4.9) X10*3/uL Harlan # (Auto) 0.2 (0.1-1.2) X10*3/uL Eos # (Auto) 0.1 (0.0-0.4) X10*3/uL Baso # (Auto) 0.0 (0.0-0.2) X10*3/uL Abs Immat Gran (auto) 0.02 (0.00-0.03) X10*3/uL Absolute Neuts (auto) 2.2 (2.0-8.3) x10*3/uL Absolute Nucleated RBC 0.000 (0.0-0.012) X10*3/uL Nucleated RBC % (auto) 0.0 (0.0-0.2) /100WBC Sodium 143 (135-145) mmol/L Potassium 4.2 (3.3-5.1) mmol/L Chloride 114 H (96-108) mmol/L Carbon Dioxide 23 (22-29) mmol/L Anion Gap 10 L (12-20) BUN 20 H (9-16) mg/dL Creatinine 0.79 (0.5-1.4) mg/dL Estim Creat Clear Calc 50.0 Estimated GFR > 60 Random Glucose 117 H (60-115) mg/dL Calcium 9.3 D (8.4-10.2) mg/dL Radiology Impression Discussion of test interpretation with radiology: I have reviewed the radiologist's reading. Radiologist Impression: CT head without contrast Comparison: CT/SR - CT HEAD WITHOUT IV CONTRAST - 09/10/22 16:30 EST Findings: No intra-axial mass, midline shift, hydrocephalus, or acute hemorrhage. No significant atrophy-like change or white matter disease. Right maxillary sinus disease. Mastoid air cells are normal. The orbits are within normal limits. There is no acute fracture. Essentially stable left scalp vertex well-circumscribed mass, possibly sebaceous cyst. IMPRESSION: 1. No acute intracranial findings. This document has been electronically signed by: Kostas Jones MD on 05/04/2025 21:28:40 CT cervical spine without contrast Comparison: CT/SR - CT CERVICAL SPINE WITHOUT IV CONTRAST - 09/10/22 16:30 EST Findings: Vertebral alignment is within normal limits. Essentially stable degenerative change. No acute fractures or dislocations. No acute findings on limited view of the intracranial contents. No cervical fluid collections or masses. No consolidation or effusion at the lung apices. IMPRESSION: No acute findings. This document has been electronically signed by: Kostas Jones MD on 05/04/2025 21:17:34 Right wrist four views Comparison: None provided Findings: Irregular lucency mid scaphoid. Fracture is not excludable. Please correlate regarding site of tenderness. No other bony abnormality identified. Prior distal radial fracture fixation hardware. Hardware intact without loosening. Diffuse decreased bone density noted. Impression: Possible nondisplaced scaphoid fracture Please correlate regarding site of tenderness This document has been electronically signed by: Joel Naidu MD on 05/04/2025 20:43:39 Right forearm two views Comparison: None provided Findings: Nondisplaced radial head fracture noted. Elbow films may be of value. No other bony abnormality identified. Prior distal radius fracture fixation hardware. Impression: Radial head fracture, elbow films may be of value This document has been electronically signed by: Joel Naidu MD on 05/05/2025 00:25:09 External Record Review External record reviewed: Office record and Primary care record Chronic Conditions Patient?s care impacted by: Other (Osteoporosis, thrombocytopenia) Discharge Plan Discharge Clinical Impression: Ground-level fall, Contusion of right forearm, initial encounter, Thrombocytopenia, Fracture of radial head, right, closed Patient Disposition: Home, Self-Care Instructions: Contusion in Adults (ED) Additional Instructions: Keep a close eye on your arm and watch out for swelling. If you develop numbness/tingling/weakness of your hand or worsening pain despite keeping it elevated, you should return to the hospital immediately. Use Tylenol for pain. Follow-up with your primary care doctor and orthopedist as discussed. Prescriptions: No Action labetalol 200 mg tablet 200 mg PO BID Qty: 180 1RF nitrofurantoin monohyd/m-cryst [Macrobid] 100 mg Capsule 100 mg PO Q12H Qty: 14 0RF Rx Instructions: must administer with a meal/food cefixime 400 mg Capsule 400 mg PO DAILY Qty: 7 2RF multivitamin Tablet 1 tab PO DAILY vitamin B complex [B Complex-Vitamin B12] Tablet 1 tab PO DAILY Interventions: ED Discharge Assessment Last Done: 05/05/25 00:44 Discharge Date/Time: 05/05/25 00:45 Print Language: Kazakh
[2025-05-04 20:02] LABS: MANUAL DIFF FLAG NO
[2025-05-04 20:03] LABS: Hematocrit 31.2 % (37.0-47.0); Hemoglobin 10.5 g/dl (12.0-16.0); Imm Gran Abs Auto 0.02 X10*3/uL (0.00-0.03); Imm Gran Pct Auto 0.7 % (0.0-0.4); Lymphocytes Absolute Auto 0.4 X10*3/uL (1.2-4.9); Mean Corpuscular HGB Conc 33.7 g/dl (31.0-35.0); Mean Corpuscular Hemoglobin 32.3 pg (27.0-33.0); Mean Corpuscular Volume 96.0 fL (80.0-98.0); NRBC Abs Auto 0.000 X10*3/uL (0.0-0.012); NRBC Pct Auto 0.0 /100WBC (0.0-0.2); Red Blood Count 3.25 X10*6/uL (4.20-5.50); White Blood Count 3.0 X10*3/uL (4.8-10.8)
[2025-05-04 20:15] LABS: Anion Gap 10 (12-20); Blood Urea Nitrogen 20 mg/dL (9-16); Calcium 9.3 mg/dL (8.4-10.2); Carbon Dioxide 23 mmol/L (22-29); Chloride 114 mmol/L (96-108); Creatinine Clr Calc Pharmacy 50.0; Estimated Glomerular Filt Rate > 60; Potassium 4.2 mmol/L (3.3-5.1); Sodium 143 mmol/L (135-145)
[2025-05-04 20:38] LABS: Platelet Count 26 X10*3/uL (160-400)
[2025-05-04 21:52] VITALS: BP 158/55; PULSE 77; RESP 16; TEMP 36.4; O2SAT 97
--- NOTE | 2025-05-05 00:40 | MHC.EDTECH ---
sling applied to right shoulder per md order. pt tolerated well.
[2025-05-05 00:41] VITALS: BP 153/56; PULSE 75; RESP 16; TEMP 36.5; O2SAT 97
[2025-05-05 00:44] VITALS: BP 153/56; PULSE 75; RESP 16; TEMP 36.5; O2SAT 97
== END 2025-05-05 00:45 | disposition home or self-care (01) ==
PROVIDERS: Physician Assistant; Emergency Provider Emergency Medicine; PCP Internal Medicine
DX: S52.121A Displaced fracture of head of right radius, initial encounter for closed fracture (principal); S50.11XA Contusion of right forearm, initial encounter; M79.631 Pain in right forearm; W19.XXXA Unspecified fall, initial encounter; Y93.01 Activity, walking, marching and hiking; Y92.488 Other paved roadways as the place of occurrence of the external cause; Y99.9 Unspecified external cause status
CPT/HCPCS: 36415; 70450; 72125; 73090; 73110; 80048; 85025; 99284

== ENCOUNTER → 2025-05-04 19:44 | Outpatient (BNV) | payer MEDICARE, SELFPAY | PROVIDERS: PCP Internal Medicine; Visit Provider Radiology Diagnostic Radiology | DX: Z04.3 Encounter for examination and observation following other accident (principal); S52.121A Displaced fracture of head of right radius, initial encounter for closed fracture; W19.XXXA Unspecified fall, initial encounter; Y93.01 Activity, walking, marching and hiking | CPT/HCPCS: 70450; 72125; 73110 ==

== ENCOUNTER 2025-05-19 10:56 | Outpatient (REF) | payer MEDICARE, SELFPAY ==
--- NOTE | ~2025-05-19 | XR_ITS ---
EXAMINATION: XR WRIST, RIGHT CLINICAL INFORMATION: M79.641 - Pain in right hand COMPARISON: None available. TECHNIQUE: PA, lateral, and oblique views of the right wrist. FINDINGS: Volar plate and screw fixation of old distal radial fracture. Fracture lines not well appreciated. Hardware intact without loosening. No additional fracture or malalignment. No definite scaphoid fracture seen on today's examination. Carpal bones normally aligned. No soft tissue abnormality. XR/XR wrist RT w scaphoid IMPRESSION: Right proximal radius volar plate and screw fixation, without complication seen. The wrist is otherwise intact. Electronically signed by: Norberto Cole MD 05/19/2025 01:40 PM EDT
--- NOTE | ~2025-05-19 | XR_ITS ---
EXAMINATION: XR ELBOW, RIGHT CLINICAL INFORMATION: M25.521 - Pain in right elbow COMPARISON: 05/04/2025. TECHNIQUE: AP, lateral, and oblique views of the right elbow. FINDINGS: There is a minimally displaced radial head fracture. There is a mildly displaced coronoid process fracture. There are no additional fractures. There is grossly anatomical alignment. The epicondyles and distal humerus are intact. There is a joint effusion. There is soft tissue swelling dorsomedially. XR/XR elbow RT min 3V IMPRESSION: 1. Mildly displaced radial head fracture. 2. Mildly displaced coronoid process fracture. 3. Joint effusion. Electronically signed by: Norberto Cole MD 05/19/2025 02:56 PM EDT
== END 2025-05-19 10:57 | disposition home or self-care (01) ==
LOC: HO.HOSX 10:56
DX: S52.121A Displaced fracture of head of right radius, initial encounter for closed fracture (principal); M79.641 Pain in right hand; M25.521 Pain in right elbow; W01.0XXA Fall on same level from slipping, tripping and stumbling without subsequent striking against object, initial encounter
CPT/HCPCS: 73080; 73110; 99212

== ENCOUNTER 2025-05-19 12:49 | Outpatient (AMB) | payer MEDICARE, SELFPAY ==
--- NOTE | 2025-05-19 13:06 | A.OFFVIS_ITS ---
Vital Signs 05/19/25 13:11 Height 4 ft 9 in Weight 147 lb BMI 31.8 Intake Visit Reasons: FC-nondisplaced scaphoid fracture DOI 05/04/25 Intake Note: Arielle is a 74 year old right hand dominant female who presents today for evaluation of a possible right scaphoid fracture, DOI: 05/04/25. Patient presented to [facility] [place] [facility] after taking a fall while walking out of a store and across a crosswalk. Patient reported she fell face forward, onto her right forearm. At the ED, she was given a shoulder sling and told to apply ice and heat. Today, she reports she is able to move her hand but does not have much strength. She feels a pulling sensation on the dorsal aspect of the wrist, radiating up to the elbow. Denies numbness, tingling, or finger locking. She is not taking anything for pain at this time. History of right radial head ORIF at [facility] 1994 & right proximal humerus fracture, DOI: 09/10/22. Allergies No Known Drug Allergies Allergy (Unknown, Verified 05/19/25 13:13) none latex Adverse Reaction (Verified 05/19/25 13:13) rash HPI HPI FC-nondisplaced scaphoid fracture DOI 05/04/25: Details: Arielle is a 74 year old right hand dominant female who presents today for evaluation of a possible right scaphoid fracture, DOI: 05/04/25. Patient presented to [facility] [place] [facility] after taking a fall while walking out of a store and across a crosswalk. Patient reported she fell face forward, onto her right forearm. At the ED, she was given a shoulder sling and told to apply ice and heat. Today, she reports she is able to move her hand but does not have much strength. Patient reports that she recalls hearing something about a fracture in her right elbow, but is unable to recall what exactly this was from evaluation in the ED She feels a pulling sensation on the dorsal aspect of the wrist, radiating up to the elbow. Denies numbness, tingling, or finger locking. She is not taking anything for pain at this time. History of right radial head ORIF at [facility] 1994 & right proximal humerus fracture, DOI: 09/10/22. [facility] Medical History (Updated 05/19/25 @ 13:56 by TRACI Sierra) Depression Fracture of proximal end of right humerus Abnormal liver function Vitamin D deficiency Osteoporosis Dyslipidemia (high LDL; low HDL) Essential hypertension Thrombocytopenia Leukopenia Hypersplenism Gallstones Surgical menopause Surgical History (Updated 05/19/25 @ 13:20 by GRETA Carolina) History of esophagogastroduodenoscopy (EGD) H/O colonoscopy History of bone marrow biopsy H/O wrist surgery History of hysterectomy Family History Father Parkinsons Mother HTN (hypertension) Pacemaker H/O bladder problems Heart problem Maternal Grandmother No problems noted. Maternal Grandfather Diabetes mellitus Paternal Grandfather History of heart attack CVD (cardiovascular disease) Paternal Grandmother Unknown family medical history Maternal Aunt Smoker Lung cancer Maternal Uncle Diabetes mellitus Sister No problems noted. 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 Neuro: Normal sensation of the tips of all digits of the right hand at this time Vascular: Cap refill brisk Pain: Mild tenderness to palpation of right radial head Mild tenderness to palpation of scaphoid tubercle and anatomical snuffbox No tenderness to palpation of medial or lateral epicondyle, olecranon, or elsewhere in the right elbow No tenderness to palpation elsewhere in the right hand or wrist ROM: Patient is able to make a closed fist and extend all digits of the right hand fully Patient is able to extend the elbow to approximately 10-15 degrees and flex to approximately 120 degrees Is able to pronate and supinate both to approximately 80 degrees Skin: No lacerations or abrasions. General: Healing ecchymosis noted of the right forearm No erythema, or evidence of infection. Psych: Appears grossly normal Affect normal Attitude cooperative Office Procedures AMB Fracture Care Details: Right radial head fracture Fracture Billing Code: Fracture Billing Code Results Reviewed Results Reviewed: X-rays obtained in the office today and independently reviewed by me, Hussein Gutierrez PA-C, demonstrate no radio evident scaphoid fracture, also demonstrates minimally displaced right radial head fracture. Assessment & Plan Assessment & Plan (1) Tenderness of anatomical snuffbox: Code(s): M79.643 - Pain in unspecified hand Category: Medical (2) Right radial head fracture: Code(s): S52.121A - Displaced fracture of head of right radius, initial encounter for closed fracture Category: Medical Plan 1. Right radial head fracture Date of injury 05/04/2025 Patient is educated about this condition Patient is educated about the typical recovery course At this time, patient is advised she should discontinue use of the sling in all but high-risk situations if it makes her feel more comfortable OT referral placed for gentle range of motion of the right elbow to prevent further stiffness 1 lb weight limit in right upper extremity Patient is educated she should avoid hyper pronation or hyper supination Should begin working on gentle range of motion even prior to OT 2. Tenderness of right anatomical snuffbox Date of injury 05/04/2025 Patient is provided with a Velcro thumb spica splint to be worn like a cast except when bathing Follow-up in 2 weeks with repeat x-rays for reassessment, we will consider an MRI of the patient's still experiencing tenderness of the anatomical snuffbox and or scaphoid tubercle at that time Patient understands this in his amenable to this plan Follow-up in 2 weeks, sooner with any acute concerns Orders: Orders XR elbow RT min 3V Today M25.521 - Pain in right elbow XR wrist RT w scaphoid Today M79.641 - Pain in right hand OT Evaluation and Treatment Today M79.643 - Pain in unspecified hand, S52.121A - Displaced fracture of head of right radius, initial encounter for closed fracture Coding Level of Care Code New Pt Level 3 (23519) Diagnoses Tenderness of anatomical snuffbox M79.643 Right radial head fracture S52.121A CPT Codes Fracture Care - Fracture Billing Code: Fracture Billing Code ([id number])
[2025-05-19 13:11] VITALS: BMI 31.8
== END 2025-05-19 14:10 | disposition home or self-care (01) ==
LOC: HO.HOS 12:50
PROVIDERS: PCP Internal Medicine
DX: S52.121A Displaced fracture of head of right radius, initial encounter for closed fracture (principal); M79.641 Pain in right hand
CPT/HCPCS: 99213

== ENCOUNTER → 2025-05-19 13:00 | Outpatient (BNV) | payer MEDICARE, SELFPAY | PROVIDERS: Visit Provider Radiology Diagnostic Radiology | DX: M25.421 Effusion, right elbow (principal); Z98.890 Other specified postprocedural states | CPT/HCPCS: 73080; 73110 ==

== ENCOUNTER 2025-06-01 12:55 | Outpatient (REF) | payer MEDICARE, SELFPAY ==
--- NOTE | ~2025-06-01 | XR_ITS ---
EXAMINATION: XR ELBOW, RIGHT CLINICAL INFORMATION: M25.521 - Pain in right elbow , follow-up fracture COMPARISON: May 19, 2025 TECHNIQUE: AP, lateral, and oblique views of the right elbow. FINDINGS: There is a fracture of the radial neck extending into the articular surface of the dorsal radial head. There is amorphous periosteal new bone formation in the region of the radial neck, increased since the prior. Again seen is a distracted fracture of the coronoid process extending into the articular surface that appears similar to the prior. XR/XR elbow RT min 3V IMPRESSION: Healing intra-articular fracture of the proximal right radius. Stable distracted coronoid process fracture. Electronically signed by: Mo Buchanan MD 06/01/2025 04:44 PM EDT
== END 2025-06-01 12:56 | disposition home or self-care (01) ==
LOC: HO.HOSX 12:55
DX: S52.121D Displaced fracture of head of right radius, subsequent encounter for closed fracture with routine healing (principal); S52.041D Displaced fracture of coronoid process of right ulna, subsequent encounter for closed fracture with routine healing; X58.XXXD Exposure to other specified factors, subsequent encounter
CPT/HCPCS: 73080; 99212

== ENCOUNTER 2025-06-01 14:42 | Outpatient (AMB) | payer MEDICARE, SELFPAY ==
[2025-06-01 14:52] VITALS: BMI 31.8
--- NOTE | 2025-06-01 14:52 | A.OFFVIS_ITS ---
Vital Signs 06/01/25 14:52 Height 4 ft 9 in Weight 147 lb BMI 31.8 Intake Visit Reasons: OV-Right radial head fracture, DOI:05/04/25 Intake Note: Arielle is a 74 year old right hand dominant female who presents today for follow up status post Right Radial Head Fracture, DOI: 05/04/25. On 05/19/25 she was instructed to discontinue the sling and placed in a 1 lb weight restriction. She was also referred to OT and advised to avoid hyper pronation or hyper supination. Today, patient reports she has occasional shooting pain from the right thumb up to her mid forearm. She also feels numbness and tingling of the entire hand when she leaves her hand open for a long time. She is taking Tylenol PRN with relief. Allergies No Known Drug Allergies Allergy (Unknown, Verified 06/03/25 10:25) none latex Adverse Reaction (Verified 06/03/25 10:25) rash HPI HPI OV-Right radial head fracture, DOI:05/04/25: Details: Arielle is a 74 year old right hand dominant female who presents today for follow up status post Right Radial Head Fracture, DOI: 05/04/25. On 05/19/25 she was instructed to discontinue the sling and placed in a 1 lb weight restriction. She was also referred to OT and advised to avoid hyper pronation or hyper supination. Today, patient reports she has occasional shooting pain from the right thumb up to her mid forearm. She also feels numbness and tingling of the entire hand when she leaves her hand open for a long time. She is taking Tylenol PRN with relief. [facility] Medical History (Updated 06/03/25 @ 16:03 by TRACI Sierra) Depression Fracture of proximal end of right humerus Abnormal liver function Vitamin D deficiency Osteoporosis Dyslipidemia (high LDL; low HDL) Essential hypertension Thrombocytopenia Leukopenia Hypersplenism Gallstones Surgical menopause Surgical History (Updated 05/19/25 @ 13:20 by GRETA Carolina) History of esophagogastroduodenoscopy (EGD) H/O colonoscopy History of bone marrow biopsy H/O wrist surgery History of hysterectomy Family History Father Parkinsons Mother HTN (hypertension) Pacemaker H/O bladder problems Heart problem Maternal Grandmother No problems noted. Maternal Grandfather Diabetes mellitus Paternal Grandfather History of heart attack CVD (cardiovascular disease) Paternal Grandmother Unknown family medical history Maternal Aunt Smoker Lung cancer Maternal Uncle Diabetes mellitus Sister No problems noted. 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 Neuro: Normal sensation of the tips of all digits of the right hand at this time Vascular: Cap refill brisk Pain: Mild tenderness to palpation of right radial head Mild tenderness to palpation of scaphoid tubercle and anatomical snuffbox No tenderness to palpation of medial or lateral epicondyle, olecranon, or elsewhere in the right elbow No tenderness to palpation elsewhere in the right hand or wrist ROM: Patient is able to make a closed fist and extend all digits of the right hand fully Patient is able to extend the elbow to approximately 10-15 degrees and flex to approximately 120 degrees Is able to pronate and supinate both to approximately 80 degrees Skin: No lacerations or abrasions. General: Healing ecchymosis noted of the right forearm No erythema, or evidence of infection. Psych: Appears grossly normal Affect normal Attitude cooperative Results Reviewed Results Reviewed: X-rays obtained in the office today and independently reviewed by me, Hussein Gutierrez PA-C, demonstrate no radio evident scaphoid fracture, also demonstrates minimally displaced right radial head fracture as well as minimally displaced grade 2 coronoid process fracture. Assessment & Plan Assessment & Plan (1) Right radial head fracture: Code(s): S52.121A - Displaced fracture of head of right radius, initial encounter for closed fracture Category: Medical (2) Fracture of coronoid process of ulna, right, closed: Code(s): S52.041A - Displaced fracture of coronoid process of right ulna, initial encounter for closed fracture Category: Medical (3) Tenderness of anatomical snuffbox: Code(s): M79.643 - Pain in unspecified hand Category: Medical Plan 1. Right radial head fracture 2. Right coronoid process fracture, grade 2 Date of injury 05/04/2025 Patient is educated about this condition Patient is educated about the typical recovery course At this time, patient is advised she should discontinue use of the sling in all but high-risk situations if it makes her feel more comfortable OT referral placed for gentle range of motion of the right elbow to prevent further stiffness 1 lb weight limit in right upper extremity Patient is educated she should avoid hyper pronation or hyper supination Avoid full extension for risk of elbow dislocation Should begin working on gentle range of motion even prior to OT Orders: Orders XR elbow RT min 3V 06/01/25 M25.521 - Pain in right elbow Coding Level of Care Code Global (84029) Diagnoses Right radial head fracture S52.121A Fracture of coronoid process of ulna, right, closed S52.041A Tenderness of anatomical snuffbox M79.643
== END 2025-06-01 15:06 | disposition home or self-care (01) ==
LOC: HO.HOS 14:43
DX: S52.121A Displaced fracture of head of right radius, initial encounter for closed fracture (principal); S52.041A Displaced fracture of coronoid process of right ulna, initial encounter for closed fracture; M79.643 Pain in unspecified hand
CPT/HCPCS: 99213

== ENCOUNTER → 2025-06-01 14:44 | Outpatient (BNV) | payer MEDICARE, SELFPAY | PROVIDERS: Visit Provider Radiology Diagnostic Radiology | DX: M25.521 Pain in right elbow (principal) | CPT/HCPCS: 73080 ==

== ENCOUNTER 2025-06-03 10:18 | Outpatient (AMB) | payer MEDICARE, SELFPAY ==
--- NOTE | 2025-06-03 10:24 | MHC.OFFVIS ---
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 Blood in urine is paper machine tender than before; kidney stones were found on a CT scan last year. Recurrent urinary tract infections are considered, but no recent infections were noted until now. Patient has a past smoking history, ceased 40 years ago, and no chemical exposure at work. Urinary Symptoms Review - Hematuria with paper machine tender color than previously observed - No recent urinary tract infections until now Results - CT scan: Presence of kidney stones - [id number]-piku-[id number] Plan office cystoscopy - cytology - urine culture PFS Medical History (Updated 06/03/25 @ 10:44 by Toan Glez MD) Depression Fracture of proximal end of right humerus Abnormal liver function Vitamin D deficiency Osteoporosis Dyslipidemia (high LDL; low HDL) Essential hypertension Thrombocytopenia Leukopenia Hypersplenism Gallstones Surgical menopause Surgical History (Updated 05/19/25 @ 13:20 by GRETA Carolina) History of esophagogastroduodenoscopy (EGD) H/O colonoscopy History of bone marrow biopsy H/O wrist surgery History of hysterectomy Family History Father Parkinsons Mother HTN (hypertension) Pacemaker H/O bladder problems Heart problem Maternal Grandmother No problems noted. Maternal Grandfather Diabetes mellitus Paternal Grandfather History of heart attack CVD (cardiovascular disease) Paternal Grandmother Unknown family medical history Maternal Aunt Smoker Lung cancer Maternal Uncle Diabetes mellitus Sister No problems noted. 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 occupational exposures/hazards: No Cognitive needs: No Hearing needs: No Vision needs: No Review of Systems Const Denies chills and Denies fever(s) Card Reports no additional complaints and Denies syncope Resp Denies cough GI Denies abdominal pain and Denies heartburn Reports as per HPI and Denies change in libido Neuro Denies syncope Psych Denies change in libido Endo Denies change in libido Physical Exam Const General: cooperative, healthy appearing, comfortable and no acute distress Orientation/consciousness: patient oriented x3 HEENT Face and sinus: Yes normal facial exam Mouth: moist mucous membranes Neck Neck: Yes normal visual inspection, Yes full ROM and Yes trachea midline Chest Chest palpation & inspection: normal inspection of the chest Resp Effort & Inspection: normal respiratory effort, able to speak in complete sentences and no respiratory distress GI Inspection: Yes normal to inspection Back/Spine/Pelvis Cervical Spine: normal cervical lordosis Thoracic/Lumbar Spine: thoracic and lumbar spine normal to inspection Skin General skin exam: no rashes or lesions noted Neuro General: patient oriented x3, gait normal, tone normal and moves all extremities Extrem General: Yes normal to inspection and Yes capillary refill normal Assessment & Plan Assessment & Plan (1) Gross hematuria: Code(s): R31.0 - Gross hematuria Category: Medical Plan Plan Patient informed verbally consented to the use of an ambient scribe 1. Hematuria - Cystoscopy planned to investigate bladder causes. 2. Nephrolithiasis - Kidney stones on CT scan; likely cause of hematuria. 3. Urinary Tract Infection - Recurrent infections considered; no recent infections until now. Discussion Notes I discussed with the patient the presence of blood in the urine and the findings of kidney stones on the CT scan, which may be contributing to the hematuria. We talked about the possibility of recurrent urinary tract infections and the need for a cystoscopy to further investigate the bladder. The patient was informed about the procedure, its duration, and the rationale behind it. Patient Instructions - Schedule a follow-up appointment for cystoscopy. - Monitor for any changes in urinary symptoms and report them. Patient Instructions: This note is constructed using voice recognition software. While every effort has been made to ensure accuracy fund accountant errors may have been included. Imaging studies, laboratory and physical exam results were discussed and reviewed in detail. No major barriers to patient understanding were identified. An opportunity to ask questions regarding the treatment plan was provided. All questions were answered. The patient expressed understanding and agreement with the above treatment plan. The patient is aware they should contact our office by phone for worsening of their current condition or the appearance of new urologic symptoms. Compliance is encouraged with any medications and followup testing that is ordered. It is a privilege to participate in the urologic care of your patient. If you have any questions or concerns regarding treatment for the above conditions, or other urologic issues, please do not hesitate to contact me. The office telephone contact is [phone]. Sincerely, Dr Toan Glez MD, [facility] - Urology Compassionate Specialist Care for the Genitourinary System Coding Level of Care Code New Pt Level 3 (58730) Diagnoses Gross hematuria R31.0
== END 2025-06-03 10:49 | disposition home or self-care (01) ==
LOC: HO.HUSH 10:19
PROVIDERS: PCP Internal Medicine; Visit Provider Urology
DX: Z13.9 Encounter for screening, unspecified (principal); R31.0 Gross hematuria
CPT/HCPCS: 99203

== ENCOUNTER 2025-06-03 10:18 | Outpatient (REF) | payer MEDICARE, SELFPAY | END 2025-06-03 10:19 | disposition home or self-care (01) | LOC: HO.LAB 10:18 | PROVIDERS: PCP Internal Medicine; Visit Provider Urology | DX: N39.0 Urinary tract infection, site not specified (principal); N20.0 Calculus of kidney; R31.0 Gross hematuria; A49.9 Bacterial infection, unspecified | CPT/HCPCS: 81003; 87086; 88112; 99202 ==

== ENCOUNTER 2025-06-07 11:40 | Outpatient (REF) | payer MEDICARE, SELFPAY ==
--- NOTE | ~2025-06-07 | XR_ITS ---
EXAMINATION: XR CHEST 2 VIEWS HISTORY: K76.9 - Liver disease, unspecified COMPARISON: There are no prior studies available for comparison. FINDINGS: PA and lateral views of the chest are submitted. The lungs are expanded and clear. There is no pleural effusion, pneumothorax, or pulmonary vascular congestion. The heart is mildly enlarged. The aorta is calcified. There is degenerative disc disease of the spine. XR/XR chest 2V IMPRESSION: Mild cardiomegaly. The lungs are clear. Electronically signed by: Cristian Hernandez MD 06/07/2025 01:03 PM EDT
== END 2025-06-07 11:41 | disposition home or self-care (01) ==
LOC: HO.XRAY 11:40
PROVIDERS: PCP Internal Medicine; Visit Provider Internal Medicine Gastroenterology
DX: K76.9 Liver disease, unspecified (principal)
CPT/HCPCS: 71046; 99212

== ENCOUNTER 2025-06-07 11:40 | Outpatient (AMB) | payer MEDICARE, SELFPAY ==
[2025-06-07 11:42] VITALS: BP 124/66; PULSE 71; BMI 31.7
--- NOTE | 2025-06-07 11:42 | A.OFFVIS_ITS ---
Vital Signs 06/07/25 11:42 Height 4 ft 9 in Weight 146 lb 6.191 oz BMI 31.7 BP 124/66 Blood Pressure Location Lt brachial Position Sitting Pulse 71 Intake Visit Reasons: 6 month f/u Intake Note: Patient in office today in follow up of abnormal liver function. CC: Patient doing well. Reports she recently had a fall on her Rt arm. Outpatient Facility Physical Therapist Required: No Accompanied by: Self / Same As Patient Allergies No Known Drug Allergies Allergy (Unknown, Verified 06/07/25 11:46) none latex Adverse Reaction (Verified 06/07/25 11:46) rash HPI HPI 6 month f/u: Details: 74 yr old f w HTN here for f/u due to abn LFT RECAP: she has had chronic abn LFT and low plts since at least 2013 with coarse liver texture saw hematology and had extensive work up, no hematology cause found but splenomegaly noted with coarse liver she fell and fractured her right humerus, was undergoing therapy LFT 09/2022 bili 2.5 AST 49 alk phos: 126 INR: 1.3 EGD/colo: 09/21: Endoscopy Findings: pill gastritis small varices Colonoscopy Findings: polyp internal hemorrhoids PAth: A. Colon, rectosigmoid polyp: Tubulovillous adenoma, completely excised; negative for high-grade dysplasia and carcinoma. B. Stomach, biopsy: Gastric antral and body mucosa with minimal chronic inactive gastritis; negative for H pylori, intestinal metaplasia and dysplasia. CT 12/2023- several mildly enlarged LN-earl portal area cirrhosis, splenomegaly atherosclerosis, gallstones LFT are stable INTERIM: she tripped on kerb last month, recovering now no major injuries otherwise she feels well no night sweats no fevers no sore throats no nose bleeds appetite is good weight is stable no abdominal pain EXAM: GENERAL: The patient is well developed and nontoxic. VITAL SIGNS:see workflow HEENT: Nonicteric sclerae, PERRLA, EOMI. Oropharynx clear. Moist mucous membranes. Conjunctivae appear well perfused. No thyroid mass. CHEST: Chest wall is nontender. HEART: Regular rate and rhythm without murmurs. LUNGS: Clear to auscultation bilaterally. ABDOMEN: Soft, positive bowel sounds, nontender, no organomegaly.no flank tenderness SKIN: No rash, no excessive bruising, petechiae, or purpura. NEUROLOGIC: Cranial nerves II-XII intact without motor/sensory deficit. psych: nml affect MS: better ROM now A/P: 1/ Abn LFT, longstanding incl low plts and WCC, suspected cirrhosis and hypersplenism from [facility], but could be AIH 2/ Tubulovillous colon polyp 3/ non specific LN on imaging PLAN: 1/ MRI liver protocol was done, splenomegaly with gallstone, liver not overtly cirrhotic on the scan --no liver lesion 2/ undecided on liver bx 3/ EGD and colonoscopy at future point 4/ no action on gallstones as no sx at this time 5/ MELD is 14 but given her age would not be a transplant candidate [facility] Medical History (Updated 06/03/25 @ 16:03 by TRACI Sierra) Depression Fracture of proximal end of right humerus Abnormal liver function Vitamin D deficiency Osteoporosis Dyslipidemia (high LDL; low HDL) Essential hypertension Thrombocytopenia Leukopenia Hypersplenism Gallstones Surgical menopause Surgical History (Updated 05/19/25 @ 13:20 by GRETA Carolina) History of esophagogastroduodenoscopy (EGD) H/O colonoscopy History of bone marrow biopsy H/O wrist surgery History of hysterectomy Family History Father Parkinsons Mother HTN (hypertension) Pacemaker H/O bladder problems Heart problem Maternal Grandmother No problems noted. Maternal Grandfather Diabetes mellitus Paternal Grandfather History of heart attack CVD (cardiovascular disease) Paternal Grandmother Unknown family medical history Maternal Aunt Smoker Lung cancer Maternal Uncle Diabetes mellitus Sister No problems noted. 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
== END 2025-06-07 12:32 | disposition home or self-care (01) ==
LOC: HO.HGI 11:40
PROVIDERS: PCP Internal Medicine; Visit Provider Internal Medicine Gastroenterology
DX: K76.9 Liver disease, unspecified (principal)
CPT/HCPCS: 99214

== ENCOUNTER → 2025-06-07 12:39 | Outpatient (BNV) | payer MEDICARE, SELFPAY | PROVIDERS: PCP Internal Medicine; Visit Provider Radiology Diagnostic Radiology | DX: K76.9 Liver disease, unspecified (principal) | CPT/HCPCS: 71046 ==

== ENCOUNTER 2025-06-16 08:33 | Outpatient (REF) | payer MEDICARE, SELFPAY ==
--- NOTE | ~2025-06-16 | XR_ITS ---
EXAMINATION: XR ELBOW 3 VIEWS RIGHT HISTORY: M25.521 - Pain in right elbow COMPARISON: Comparison is made with the prior examination dated 06/01/2025. FINDINGS: Three views of the right elbow are submitted. The bones are osteopenic. Again seen is a fracture of the radial head and neck, as well as a fracture of the coronoid process of the ulna. The fracture lines remain visible. The joint spaces are preserved. The soft tissues are unremarkable. XR/XR elbow RT min 3V IMPRESSION: Fractures of the radial head/neck and coronoid process of the ulna without significant change. Electronically signed by: Cristian Hernandez MD 06/16/2025 02:50 PM EDT
== END 2025-06-16 08:34 | disposition home or self-care (01) ==
LOC: HO.HOSX 08:33
DX: S52.121D Displaced fracture of head of right radius, subsequent encounter for closed fracture with routine healing (principal); S52.041D Displaced fracture of coronoid process of right ulna, subsequent encounter for closed fracture with routine healing; X58.XXXD Exposure to other specified factors, subsequent encounter
CPT/HCPCS: 73080; 99212

== ENCOUNTER 2025-06-16 14:03 | Outpatient (AMB) | payer MEDICARE, SELFPAY ==
--- NOTE | 2025-06-16 14:26 | A.OFFVIS_ITS ---
Vital Signs 06/16/25 14:29 Height 4 ft 9 in Weight 146 lb BMI 31.6 Handedness Right Intake Visit Reasons: OV- Right radial head fx DOI 05/04/25 Intake Note: Arielle is a 74 year old woman who presents today for a follow up visit for her right radial head fracture and right coronoid process fracture, DOI: 05/04/25 s/p fall. At her last visit a occupational therapy referral was placed for gentle range of motion of the right elbow to prevent stiffness and put on a 1 lb weight limit in right upper extremity. she was also educated and advised on avoiding hyper pronation or hyper supination and avoid full extension for risk of elbow dislocation. She says she started OT, today was her 3 or 4th visit and she says she is satisfied so far. Denies numbness and tingling. She reports she has not been lifting over 1 lb. She says after OT she has a slight increase in pain. If her symptoms are too bad she takes Tylenol and finds relief. Allergies No Known Drug Allergies Allergy (Unknown, Verified 06/16/25 14:29) none latex Adverse Reaction (Verified 06/16/25 14:29) rash HPI HPI OV- Right radial head fx DOI 05/04/25: Details: Arielle is a 74 year old woman who presents today for a follow up visit for her right radial head fracture and right coronoid process fracture, DOI: 05/04/25 s/p fall. At her last visit a occupational therapy referral was placed for gentle range of motion of the right elbow to prevent stiffness and put on a 1 lb weight limit in right upper extremity. she was also educated and advised on avoiding hyper pronation or hyper supination and avoid full extension for risk of elbow dislocation. She says she started OT, today was her 3 or 4th visit and she says she is satisfied so far. Denies numbness and tingling. She reports she has not been lifting over 1 lb. She says after OT she has a slight increase in pain. If her symptoms are too bad she takes Tylenol and finds relief. [facility] Medical History (Updated 06/16/25 @ 14:30 by BRIANDA Mcclelland) Fracture of coronoid process of ulna, right, closed (~05/04/25) Right radial head fracture (~05/04/25) Depression Fracture of proximal end of right humerus Abnormal liver function Vitamin D deficiency Osteoporosis Dyslipidemia (high LDL; low HDL) Essential hypertension Thrombocytopenia Leukopenia Hypersplenism Gallstones Surgical menopause Surgical History (Updated 05/19/25 @ 13:20 by GRETA Carolina) History of esophagogastroduodenoscopy (EGD) H/O colonoscopy History of bone marrow biopsy H/O wrist surgery History of hysterectomy Family History Father Parkinsons Mother HTN (hypertension) Pacemaker H/O bladder problems Heart problem Maternal Grandmother No problems noted. Maternal Grandfather Diabetes mellitus Paternal Grandfather History of heart attack CVD (cardiovascular disease) Paternal Grandmother Unknown family medical history Maternal Aunt Smoker Lung cancer Maternal Uncle Diabetes mellitus Sister No problems noted. 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 Neuro: Normal sensation of the tips of all digits of the right hand at this time Vascular: Cap refill brisk Pain: Mild tenderness to palpation of right radial head No tenderness to palpation of scaphoid tubercle and anatomical snuffbox No tenderness to palpation of medial or lateral epicondyle, olecranon, or elsewhere in the right elbow No tenderness to palpation elsewhere in the right hand or wrist ROM: Patient is able to make a closed fist and extend all digits of the right hand fully Patient is able to extend the elbow to approximately 10 degrees and flex to approximately 120 degrees Is able to pronate and supinate both to approximately 80 degrees Skin: No lacerations or abrasions. General: Healing ecchymosis noted of the right forearm No erythema, or evidence of infection. Psych: Appears grossly normal Affect normal Attitude cooperative Results Reviewed Results Reviewed: X-rays obtained in the office today and independently reviewed by me, Hussein Gutierrez PA-C, demonstrate no radio evident scaphoid fracture, also demonstrates minimally displaced right radial head fracture as well as minimally displaced grade 2 coronoid process fracture with evidence of interval bony healing. Assessment & Plan Assessment & Plan (1) Right radial head fracture: Onset Date: ~05/04/25 Code(s): S52.121A - Displaced fracture of head of right radius, initial encounter for closed fracture Category: Medical (2) Fracture of coronoid process of ulna, right, closed: Onset Date: ~05/04/25 Code(s): S52.041A - Displaced fracture of coronoid process of right ulna, initial encounter for closed fracture Category: Medical (3) Tenderness of anatomical snuffbox: Code(s): M79.643 - Pain in unspecified hand Category: Medical Plan 1. Right radial head fracture 2. Right coronoid process fracture, grade 2 Date of injury 05/04/2025 Patient is educated about this condition Patient is educated about the typical recovery course At this time, patient is advised she should discontinue use of the sling in all but high-risk situations if it makes her feel more comfortable Continue OT 1-2 lb weight limit in right upper extremity Patient is educated she should avoid hyper pronation or hyper supination Avoid full extension for risk of elbow dislocation Should begin working on gentle range of motion even prior to OT Follow-up in 4 weeks Orders: Orders XR elbow RT min 3V 06/16/25 M25.521 - Pain in right elbow Coding Level of Care Code Global (30310) Diagnoses Right radial head fracture S52.121A Fracture of coronoid process of ulna, right, closed S52.041A Tenderness of anatomical snuffbox M79.643
[2025-06-16 14:29] VITALS: BMI 31.6
== END 2025-06-16 14:37 | disposition home or self-care (01) ==
LOC: HO.HOS 14:04
DX: S52.121D Displaced fracture of head of right radius, subsequent encounter for closed fracture with routine healing (principal); S52.041D Displaced fracture of coronoid process of right ulna, subsequent encounter for closed fracture with routine healing; M79.641 Pain in right hand
CPT/HCPCS: 99213

== ENCOUNTER → 2025-06-16 14:20 | Outpatient (BNV) | payer MEDICARE, SELFPAY | PROVIDERS: Visit Provider Radiology Diagnostic Radiology | DX: S52.04 Fracture of coronoid process of ulna (principal) | CPT/HCPCS: 73080 ==

== ENCOUNTER 2025-07-19 14:40 | Outpatient (REF) | payer MEDICARE, SELFPAY | END 2025-07-19 14:41 | disposition home or self-care (01) | LOC: HO.HOSX 14:40 | DX: Z13.89 Encounter for screening for other disorder (principal) ==

== ENCOUNTER 2025-07-20 11:05 | Outpatient (REF) | payer MEDICARE, SELFPAY ==
--- NOTE | ~2025-07-20 | XR_ITS ---
EXAMINATION: XR ELBOW, RIGHT CLINICAL INFORMATION: M25.521 - Pain in right elbow COMPARISON: Previous x-rays most recent May 2025 TECHNIQUE: AP, lateral, and oblique views of the right elbow. FINDINGS: There is a transverse nondisplaced fracture of the radial head/neck and nondisplaced fracture of the coronoid process that appear unchanged. Fracture lines still seen. The joint space is normal. No joint effusion. XR/XR elbow RT min 3V IMPRESSION: Similar-appearing radial head/neck and coronoid process fractures. Electronically signed by: Irma Brooks MD 07/20/2025 11:50 AM EDT
== END 2025-07-20 11:06 | disposition home or self-care (01) ==
LOC: HO.HOSX 11:05
DX: S52.121D Displaced fracture of head of right radius, subsequent encounter for closed fracture with routine healing (principal); S52.041D Displaced fracture of coronoid process of right ulna, subsequent encounter for closed fracture with routine healing; X58.XXXD Exposure to other specified factors, subsequent encounter
CPT/HCPCS: 73080; 99212

== ENCOUNTER 2025-07-20 11:26 | Outpatient (AMB) | payer MEDICARE, SELFPAY ==
--- NOTE | 2025-07-20 11:36 | A.OFFVIS_ITS ---
Vital Signs 07/20/25 11:40 Height 4 ft 9 in Weight 146 lb BMI 31.6 Intake Visit Reasons: OV- Right radial head fx DOI 05/04/25 Intake Note: Arielle is a 75 year old female who presents today for follow up status post Right Radial Head Fracture and Right Coronoid Process Fracture, DOI: 05/04/25. At her last visit she was advised to use sling with high-risk situations if it made her feel more comfortable. She was reminded to keep a 1-2 lb weight restriction, to avoid full extension for risk of elbow dislocation, and to continue Occupational Therapy. Patient reports today she is doing well with few episodes of pain triggered by certain movements. Patient is not taking pain medications at this time. Allergies No Known Drug Allergies Allergy (Unknown, Verified 07/20/25 11:40) none latex Adverse Reaction (Verified 07/20/25 11:40) rash HPI HPI OV- Right radial head fx DOI 05/04/25: Details: Arielle is a 75 year old female who presents today for follow up status post Right Radial Head Fracture and Right Coronoid Process Fracture, DOI: 05/04/25. At her last visit she was advised to use sling with high-risk situations if it made her feel more comfortable. She was reminded to keep a 1-2 lb weight restriction, to avoid full extension for risk of elbow dislocation, and to continue Occupational Therapy. Patient reports today she is doing well with few episodes of pain triggered by certain movements. Patient is not taking pain medications at this time. [facility] Medical History (Updated 06/16/25 @ 14:30 by BRIANDA Mcclelland) Fracture of coronoid process of ulna, right, closed (~05/04/25) Right radial head fracture (~05/04/25) Depression Fracture of proximal end of right humerus Abnormal liver function Vitamin D deficiency Osteoporosis Dyslipidemia (high LDL; low HDL) Essential hypertension Thrombocytopenia Leukopenia Hypersplenism Gallstones Surgical menopause Surgical History (Updated 05/19/25 @ 13:20 by GRETA Carolina) History of esophagogastroduodenoscopy (EGD) H/O colonoscopy History of bone marrow biopsy H/O wrist surgery History of hysterectomy Family History Father Parkinsons Mother HTN (hypertension) Pacemaker H/O bladder problems Heart problem Maternal Grandmother No problems noted. Maternal Grandfather Diabetes mellitus Paternal Grandfather History of heart attack CVD (cardiovascular disease) Paternal Grandmother Unknown family medical history Maternal Aunt Smoker Lung cancer Maternal Uncle Diabetes mellitus Sister No problems noted. 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 Neuro: Normal sensation of the tips of all digits of the right hand at this time Vascular: Cap refill brisk Pain: Now tenderness to palpation of right radial head No tenderness to palpation of scaphoid tubercle and anatomical snuffbox No tenderness to palpation of medial or lateral epicondyle, olecranon, or elsewhere in the right elbow No tenderness to palpation elsewhere in the right hand or wrist ROM: Patient is able to make a closed fist and extend all digits of the right hand fully Patient is able to extend the elbow to approximately 10 degrees and flex to approximately 120 degrees Is able to pronate and supinate both to approximately 80 degrees Skin: No lacerations or abrasions. General: Healing ecchymosis noted of the right forearm No erythema, or evidence of infection. Psych: Appears grossly normal Affect normal Attitude cooperative Results Reviewed Results Reviewed: X-rays obtained in the office today and independently reviewed by me, Hussein Gutierrez PA-C, demonstrate no radio evident scaphoid fracture, also demonstrates minimally displaced right radial head fracture as well as minimally displaced grade 2 coronoid process fracture with evidence of interval bony healing. Assessment & Plan Assessment & Plan (1) Right radial head fracture: Onset Date: ~05/04/25 Code(s): S52.121A - Displaced fracture of head of right radius, initial encounter for closed fracture Category: Medical (2) Fracture of coronoid process of ulna, right, closed: Onset Date: ~05/04/25 Code(s): S52.041A - Displaced fracture of coronoid process of right ulna, initial encounter for closed fracture Category: Medical (3) Tenderness of anatomical snuffbox: Code(s): M79.643 - Pain in unspecified hand Category: Medical Plan 1. Right radial head fracture 2. Right coronoid process fracture, grade 2 Date of injury 05/04/2025 Patient is educated about this condition Patient is educated about the typical recovery course No further sling and use indicated Continue OT 3-4 lb weight limit in right upper extremity Patient is educated she should avoid hyper pronation or hyper supination Avoid full extension for risk of elbow dislocation Should begin working on gentle range of motion even prior to OT Follow-up in 4-6 weeks Orders: Orders XR elbow RT min 3V 07/20/25 M25.521 - Pain in right elbow Coding Level of Care Code Global (31494) Diagnoses Right radial head fracture S52.121A Fracture of coronoid process of ulna, right, closed S52.041A Tenderness of anatomical snuffbox M79.643
[2025-07-20 11:40] VITALS: BMI 31.6
== END 2025-07-20 12:26 | disposition home or self-care (01) ==
LOC: HO.HOS 11:27
PROVIDERS: PCP Internal Medicine
DX: S52.121A Displaced fracture of head of right radius, initial encounter for closed fracture (principal); S52.041A Displaced fracture of coronoid process of right ulna, initial encounter for closed fracture; M79.641 Pain in right hand
CPT/HCPCS: 99213

== ENCOUNTER → 2025-07-20 11:33 | Outpatient (BNV) | payer MEDICARE, SELFPAY | PROVIDERS: Visit Provider Radiology Diagnostic Radiology | DX: M25.521 Pain in right elbow (principal) | CPT/HCPCS: 73080 ==

== ENCOUNTER 2025-08-02 09:30 | Outpatient (RCR) | payer MEDICARE, SELFPAY ==
--- NOTE | 2025-06-07 11:30 | MHC.OT.EP ---
[facility] Office [address] [phone] F: [phone] F: [phone] Occupational Therapy Plan of Care Patient Name: Arielle Ulrich Date of Evaluation: 06/07/25 Diagnosis: R radial head fracture - displaced Pain Location: R elbow/ forearm 7/10 at worst over the last week Pain Score: 2 Pain Scale Used: Numeric (0 - 10) Aggravating Factors: pressure / over use of UE Alleviating Factors: Tylenol (no longer pain) Assessment: Pt is a 74 yr R hand dominant Female who fell while crossing the sidewalk on 05/04/25. She went directly to the ED and was diagnosed w/ a displaced R radial head fracture and she was placed in a sling. The sling was discharged from the sling on 05/19 and given a 1 l b weight limitation. She presents today w/ good shoulder/wrist ROM; but is limited in elbow ROM, strength, and functional use of her dominant hand. She would benefit from skilled OT therapy to address these deficits a Return pt to her PLOF. 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 Thank you once again for your referral.
--- NOTE | 2025-07-22 14:41 | MHC.OT.OP ---
[facility] Office [address] [facility] [phone] F: [phone] F: [phone] Occupational Therapy Progress Note Patient Name: Arielle Ulrich Diagnosis: R radial head fracture - displaced Date of Surgery: Date of Evaluation: 06/07/25 Treatments to Date: 11 Cancellations to Date: No Shows to Date: Subjective: I saw the doctor, its not completely healed so I have to follow up in 4 weeks Pain Score: 2 Pain Location: Right medial elbow Objective Measures: Status: Progressing Assessment: Elbow 0/145 Forearm 70/80 Gross grasp R 20lb L 35lb Pt tolerated therapy well today. She is making gains towards her LTG's. we continue to focus therapy on increasing pain free ROM, strength, and functional use of her UE. 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 Goals: Pt will have full pain free supination (80) GOOD PROGRESS Pt will have 25 lbs of R stone operator strength Pt will report being able to knit/luis w/ out difficulty Frequency and Duration: The patient will be seen 1 x week for weeks Treatment Plan: Therapeutic Exercise Therapeutic Activity Home Exercise Program Splinting Neuro Re-ed Patient Education Desensitization/Sensory Re-ed Edema Control ADL Training Ultrasound NMES Iontophoresis Paraffin Fluidotherapy MHP Cold Packs Joint Mobilization Soft Tissue Mobilization Kinesiotaping Other (see comments) Electronically Signed By: Norma Melchor OTR/L Reviewed/agree with student documentation: Therapist:
== END 2025-08-02 11:58 | disposition home or self-care (01) ==
LOC: HO.OT 09:30
PROVIDERS: PCP Internal Medicine
DX: S52.121D Displaced fracture of head of right radius, subsequent encounter for closed fracture with routine healing (principal)
CPT/HCPCS: 97110; 97140; 97165; 97535

== ENCOUNTER 2025-09-01 09:19 | Outpatient (AMB) | payer MEDICARE, SELFPAY ==
[2025-09-01 09:20] VITALS: BMI 31.6
--- NOTE | 2025-09-01 09:20 | MHC.OFFVIS ---
Vital Signs 09/01/25 09:20 Height 4 ft 9 in Weight 146 lb BMI 31.6 Intake Visit Reasons: OV- Right radial head fx DOI 05/04/25 Intake Note: Arielle is a 75 year old right hand dominant female who presents today for follow up s/p Right Radial Head Fracture and Right Coronoid Process Fracture from 05/04/25. At her last visit, she was instructed she could discontinue use of the sling and begin working with Occupational Therapy on gentle ROM. Patient was seen with [facility] OT & was discharged on 08/02/25 as she had met all of her OT goals. Today, patient reports occasional discomfort on the volar aspect of her mid forearm. She denies numbness, tingling. She is not taking any pain medications at this time. Allergies No Known Drug Allergies Allergy (Unknown, Verified 09/01/25 09:20) none latex Adverse Reaction (Verified 09/01/25 09:20) rash HPI HPI OV- Right radial head fx DOI 05/04/25: Details: Arielle is a 75 year old right hand dominant female who presents today for follow up s/p Right Radial Head Fracture and Right Coronoid Process Fracture from 05/04/25. At her last visit, she was instructed she could discontinue use of the sling and begin working with Occupational Therapy on gentle ROM. Patient was seen with [facility] OT & was discharged on 08/02/25 as she had met all of her OT goals. Today, patient reports occasional discomfort on the volar aspect of her mid forearm, but denies any ongoing pain or discomfort at the right elbow. She denies numbness, tingling. She is not taking any pain medications at this time. [facility] Medical History (Updated 06/16/25 @ 14:30 by BRIANDA Mcclelland) Fracture of coronoid process of ulna, right, closed (~05/04/25) Right radial head fracture (~05/04/25) Depression Fracture of proximal end of right humerus Abnormal liver function Vitamin D deficiency Osteoporosis Dyslipidemia (high LDL; low HDL) Essential hypertension Thrombocytopenia Leukopenia Hypersplenism Gallstones Surgical menopause Surgical History (Updated 05/19/25 @ 13:20 by Simeon Perez Gudelia) History of esophagogastroduodenoscopy (EGD) H/O colonoscopy History of bone marrow biopsy H/O wrist surgery History of hysterectomy Family History Father Parkinsons Mother HTN (hypertension) Pacemaker H/O bladder problems Heart problem Maternal Grandmother No problems noted. Maternal Grandfather Diabetes mellitus Paternal Grandfather History of heart attack CVD (cardiovascular disease) Paternal Grandmother Unknown family medical history Maternal Aunt Smoker Lung cancer Maternal Uncle Diabetes mellitus Sister No problems noted. 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 Neuro: Normal sensation of the tips of all digits of the right hand at this time Vascular: Cap refill brisk Pain: Now tenderness to palpation of right radial head No tenderness to palpation of scaphoid tubercle and anatomical snuffbox No tenderness to palpation of medial or lateral epicondyle, olecranon, or elsewhere in the right elbow No tenderness to palpation elsewhere in the right hand or wrist ROM: Patient is able to make a closed fist and extend all digits of the right hand fully Patient is able to extend the elbow to approximately 5 degrees and flex to approximately 120 degrees Is able to pronate and supinate both to approximately 90 degrees Skin: No lacerations or abrasions. General: No further ecchymosis No erythema, or evidence of infection. Psych: Appears grossly normal Affect normal Attitude cooperative Assessment & Plan Assessment & Plan (1) Right radial head fracture: Onset Date: ~05/04/25 Code(s): S52.121A - Displaced fracture of head of right radius, initial encounter for closed fracture Category: Medical (2) Fracture of coronoid process of ulna, right, closed: Onset Date: ~05/04/25 Code(s): S52.041A - Displaced fracture of coronoid process of right ulna, initial encounter for closed fracture Category: Medical (3) Tenderness of anatomical snuffbox: Code(s): M79.643 - Pain in unspecified hand Category: Medical Plan 1. Right radial head fracture 2. Right coronoid process fracture, grade 2 Date of injury 05/04/2025 Patient is educated about this condition Patient is educated about the typical recovery course No further sling and use indicated Patient may slowly increase her activity over the next 4-6 weeks Patient is educated she should avoid hyper pronation or hyper supination Avoid forceful extension for risk of elbow dislocation Follow-up as needed with any acute concerns Coding Level of Care Code Est Pt Level 3 (86652) Diagnoses Right radial head fracture S52.121A Fracture of coronoid process of ulna, right, closed S52.041A Tenderness of anatomical snuffbox M79.643
--- OUTSIDE RECORDS SUMMARY | 2025-09-01 10:07 | XMS_ITS | Clinical Summary ---
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 Contact Info) Description 09/06/2025 1:00 PM EST Consult Plastic & Reconstructive Surgery - [place] [address] [facility] [address] [place] [address] Chantelle Chacon PA [address] [place] [phone] Health Maintenance Due Date Last Done Comments Breast Cancer Screening 1950 Colorectal Cancer Screening: Colonoscopy 1950 DTaP,Tdap,and Td Vaccines (1 - Tdap) 1970 Pneumococcal Vaccine: 50+ Ye ars (1 of 1 - PCV) 2001 Zoster Vaccines (1 of 2) 2001 Depression Screening 09/30/2024 COVID-19 Vaccine (1 - 2024-2 6 season) 2025 Influenza Vaccine (#1) 2025 Falls Risk Assessment 08/24/2025 Hepatitis C Screening 08/24/2025 Medicare Annual Wellness Visit 08/24/2025 Osteoporosis Screening (Bone Density Screening) 08/24/2025 Social Influencers of Health Screening 08/24/2025 RSV Immunization Adult Patie nts (1 - 1-dose 75+ series) 2026 HIB Vaccines Aged Out No longer eligi ble based on patient's age to complete this topic HPV Vaccines Aged Out No longer eligi ble based on patient's age to complete this topic Hepatitis A Vaccines Aged Out No long er eligible based on patient's age to complete this topic Hepatitis B Vaccines Aged Out No long er eligible based on patient's age to complete this topic IPV Vaccines Aged Out No longer eligi ble based on patient's age to complete this topic MMR Vaccines Aged Out No longer eligi ble based on patient's age to complete this topic Meningococcal ACWY Vaccine Aged Out N o longer eligible based on patient's age to complete this topic Meningococcal B Vaccine Aged Out No l onger eligible based on patient's age to complete this topic RSV Immunization Patients Un santana 20 months Aged Out No longer eligible b ased on patient's age to complete this topic Varicella Vaccines Aged Out No longer eligible based on patient's age to complete this topic Insurance [employer] Care Teams Dye House Wheel Operator Relationship Specialty Start Date End Date Yuni Becerra MD [address] [place] [address] PCP - General Internal Medicine 08/24/25
== END 2025-09-01 09:52 | disposition home or self-care (01) ==
LOC: HO.HOS 09:19
DX: S52.121A Displaced fracture of head of right radius, initial encounter for closed fracture (principal); S52.041A Displaced fracture of coronoid process of right ulna, initial encounter for closed fracture; M79.641 Pain in right hand
CPT/HCPCS: 99213

== ENCOUNTER → 2025-09-01 09:19 | Outpatient (BNVA) | payer MEDICARE, SELFPAY | DX: S52.121D Displaced fracture of head of right radius, subsequent encounter for closed fracture with routine healing (principal); S52.041D Displaced fracture of coronoid process of right ulna, subsequent encounter for closed fracture with routine healing; X58.XXXD Exposure to other specified factors, subsequent encounter | CPT/HCPCS: 99212 ==